=== PATIENT | male | born 1945 | race Caucasian/White ===

== ENCOUNTER 2019-06-16 13:57 | Outpatient (REF) | payer OTHER, SELFPAY ==
[2019-06-16 19:46] LABS: ALT 51 U/L (16-63); AST 32 U/L (15-37); Albumin 3.7 g/dL (3.4-5.0); Alkaline Phosphatase 117 U/L (46-116); Anion Gap 9.6 mmol/L (3-11); BUN 20 mg/dL (7-18); Bilirubin, Total 0.5 mg/dL (0.2-1.0); CO2 26.4 mmol/L (21.0-32.0); CREATININE 1.01 mg/dL (0.70-1.30); Calcium 8.7 mg/dL (8.5-10.1); Chloride 106 mmol/L (98-107); Glucose 92 mg/dL (70-100); Potassium 3.9 mmol/L (3.5-5.1); Sodium 142 mmol/L (136-145); Total Protein 7.9 g/dL (6.4-8.2); Vitamin B12 422 pg/mL (193-986)
== END 2019-06-16 14:17 ==
LOC: NCHCN 13:57
PROVIDERS: PCP Family Medicine; Visit Provider Family Medicine
DX: I10 Essential (primary) hypertension (principal); R31.0 Gross hematuria; F10.99 Alcohol use, unspecified with unspecified alcohol-induced disorder; E53.8 Deficiency of other specified B group vitamins; I48.91 Unspecified atrial fibrillation
CPT/HCPCS: 80053; 82607; 83735

== ENCOUNTER 2019-06-23 01:28 | Outpatient (CLI) | payer OTHER, SELFPAY ==
[2019-06-23] MEDS: Omnipaque 350 MG/ML 100 ML BTL IJ (09:00)
--- NOTE | 2019-06-23 09:00 | DI.CT_ITS ---
EXAM: CT ABDOMEN PELVIS WO/W CLINICAL HISTORY: GROSS HEMATURIA, R31.0, H/O KIDNEY STONES TECHNIQUE: Without oral contrast. Before and after IV contrast and 7 minutes delay. COMPARISON: No exams were available for comparison FINDINGS: There is an 8 millimeter stone near the lower pole of the right kidney. There are 2 adjacent stones in the mid right kidney measuring 4 millimeter each in size. No left renal calculi, ureteral or yokasta dder calculi are seen. Urinary bladder is nearly empty. The prostate is mildly enlarged. A small c yst is noted laterally on the left kidney. No masses are identified. There is symmetric renal paren chymal enhancement and symmetric excretion. No collecting system filling defects are seen. The lung bases are clear. There is mild left atrial and left ventricular enlargement. No pleural or pericardial effusions are seen. There are several small low-density lesions in the liver, too small to characterize, likely cysts. The overall liver attenuation appears mildly fatty. The spleen, ayers creas and adrenals are unremarkable. There is a retro aortic left renal vein. The aorta is normal i n diameter and shows minimal calcification. There is prominent diverticulosis of the descending and sigmoid colon. A distal ileal anastomosis is seen. There are hemangiomas noted in S1. Degenerative changes of the SI joints and lumbar spine. Suture material is seen along the midline of the anterior abdominal wall. IMPRESSION: Right renal calculi. No evidence of hydronephrosis, ureteral or bladder calculi. No evidence of a m ass.
== END 2019-06-23 01:48 ==
PROVIDERS: PCP Family Medicine; Visit Provider Family Medicine
DX: R31.0 Gross hematuria (principal); N20.0 Calculus of kidney
CPT/HCPCS: 74178; J3490

== ENCOUNTER → 2019-08-28 14:34 | Outpatient (BNVA) | payer MEDICARE, OTHER, SELFPAY | PROVIDERS: PCP Family Medicine; Referring Provider Family Medicine; Visit Provider Urology | DX: N20.0 Calculus of kidney (principal); I10 Essential (primary) hypertension; I48.0 Paroxysmal atrial fibrillation; Z79.01 Long term (current) use of anticoagulants | CPT/HCPCS: 99203 ==

== ENCOUNTER 2019-09-02 20:10 | Outpatient (REF) | payer MEDICARE, SELFPAY ==
[2019-09-02 19:32] LABS: HCT 39.5 % (40.0-50.0); HGB 13.3 g/dL (13.5-17.5); Mean Corp. HGB Concentration 33.7 g/dL (32.0-36.0); Mean Corpuscular Hemoglobin 31.6 pg (27.0-33.0); Mean Corpuscular Volume 93.8 fL (80-95); Mean Platelet Volume 10.2 fL (8.0-11.0); Platelet Count 193 x1000/uL (130-400); RBC 4.21 m/cumm (4.50-6.00); RBC Distribution Width 12.4 % (11.8-14.1); White Blood Cell Count 4.88 k/cumm (4.4-10.8)
[2019-09-02 19:37] LABS: C-Reactive Protein 0.19 mg/dL (0.0-0.3)
== END 2019-09-02 20:30 ==
LOC: NCHCN 20:10
PROVIDERS: PCP Family Medicine; Visit Provider Family Medicine
DX: K50.90 Crohn's disease, unspecified, without complications (principal)
CPT/HCPCS: 85027; 86140

== ENCOUNTER 2019-09-07 13:16 | Outpatient (REF) | payer MEDICARE, SELFPAY ==
[2019-09-07 19:00] LABS: HCT 39.9 % (40.0-50.0); HGB 13.2 g/dL (13.5-17.5); Mean Corp. HGB Concentration 33.1 g/dL (32.0-36.0); Mean Corpuscular Hemoglobin 31.4 pg (27.0-33.0); Mean Corpuscular Volume 94.8 fL (80-95); Mean Platelet Volume 10.2 fL (8.0-11.0); Platelet Count 190 x1000/uL (130-400); RBC 4.21 m/cumm (4.50-6.00); RBC Distribution Width 12.4 % (11.8-14.1); White Blood Cell Count 5.21 k/cumm (4.4-10.8)
[2019-09-07 19:12] LABS: Iron 87 ug/dL (65-175); Total Iron Binding Capacity 399 ug/dL (250-450); Transferrin Sat 22 % (20-55)
[2019-09-07 19:27] LABS: Ferritin 194 ng/mL (26-388)
== END 2019-09-07 13:36 ==
LOC: NCHCN 13:16
PROVIDERS: PCP Family Medicine; Visit Provider Family Medicine
DX: D64.9 Anemia, unspecified (principal); K50.90 Crohn's disease, unspecified, without complications
CPT/HCPCS: 85027; 82728; 83540; 83550; 86140

== ENCOUNTER 2019-09-29 01:04 | Outpatient (CLI) | payer MEDICARE, SELFPAY ==
--- NOTE | 2019-09-29 13:45 | DI.US_ITS ---
APPROVED REPORT EXAM: Comprehensive 2D, Doppler, and color-flow Echocardiogram Patient Location: Out-Patient Laboratory Scientist: Enma Jaramillo RDCS (AE) Rhythm: Bradycardia Indications: aortic root dilation .. i77.810. follow up aortic root ascending aorta dilation Conclusion Left Ventricle : The left ventricle is normal size. Left ventricular systolic function is normal. Mi ld left ventricular hypertrophy. There is normal LV segmental wall motion. Diastolic function is ind eterminate. LVEF is estimated to be 55-60%. Right Ventricle : Right ventricle is mildly dilated. The right ventricular systolic function appears normal. Atria : Left atrium is moderately dilated. The right atrium size is top normal. Aortic Valve : Aortic valve is trileaflet. No aortic regurgitation is present. There is no aortic shayne vular stenosis. Mitral Valve : Mitral valve leaflets are mildly thickened. Mild to moderate mitral regurgitation. Great Vessels : The ascending aorta is mildly dilated (4.46 cm) The IVC is dilated in size and collap ses >50% with inspiration. Estimated RVSP is 30-35 mmHg. There is no prior echocardiogram available for comparison. Wall motion Left Ventricle The left ventricle is normal size. Left ventricular systolic function is normal. Mild left ventricula r hypertrophy. There is normal LV segmental wall motion. Diastolic function is indeterminate. LVEF is estimated to be 55-60%. Right Ventricle Right ventricle is mildly dilated. The right ventricular systolic function appears normal. Atria Left atrium is moderately dilated. The right atrium size is top normal. Aortic Valve Aortic valve is trileaflet. There is no aortic valvular stenosis. No aortic regurgitation is present. Mitral Valve Mitral valve leaflets are mildly thickened. No evidence of mitral valve stenosis. Mild to moderate mi tral regurgitation. Tricuspid Valve The tricuspid valve is normal in structure. Mild to moderate tricuspid regurgitation. Pulmonic Valve Pulmonic valve is not well visualized. Moderate pulmonic regurgitation. Great Vessels The aortic root size is normal. The ascending aorta is mildly dilated (4.46 cm) The IVC is dilated in size and collapses >50% with inspiration. Estimated RVSP is 30-35 mmHg. Pericardium There is no pericardial effusion. 2D Dimensions IVSd 1.25 cm M: 0.6-1.2 LV EDV A2C 123.0 mL PWd 1.10 cm M: 0.6 - 1.2 LV EDV A4C 149.7 mL LVDd 5.15 cm M: 4.2 - 5.8 LA Volume Index Biplane 41.9 mL/m2 LVDs 3.70 cm M: 2.5 - 4.0 LA Area A4C 28.04 cm2 Aortic Root 3.70 cm M: 3.1 - 3.7 LA Area A2C 23.68 cm2 RVID Base (AP4) 4.32 cm (M/F) 2.5-4.1 EF AP4 54.6 % RA Area A4C 19.17 cm2 EF AP2 60.6 % LVOT 2.05 cm (M/F) 1.5-2.5 EF BP 58.3 % Ascending Aorta 4.46 cm M: 2.6 - 3.4 IVC 2.45 cm LVEF (Teich) 53.5 % TAPSE 2.61 cm (M/F) <1.7 LVEF (Dang's) 58.32 % M: 52 - 72 LV Volume 100.55 mL M: 62 - 150 LV Volume Index 45.29 mL/m2 M: 34 - 74 FS 27.75 % LV Diastology MV E' medial 0.068 (>0.07 m/s) E/A Ratio 1.5 LV E/e MED 10.55 (<14) PV S/D Ratio 0.72 MV E' lateral 0.076 (>0.1 m/s) A-A Duration 135.37 msec LV E/e LAT 9.45 (<14) TR Peak Velocity 2.62 m/s Pulm Vein s 0.41 m/s Pulm Vein d 0.57 m/s Pulm Vein a 0.26 m/s LA vol/ BSA A2C s A-L 35.4 mL/m2 LA vol/ BSA A4C s A-L 49.3 mL/m2 Aortic Valve LVOT Area 3.45 cm2 AoV Area Vmax 3.16 cm2 LVOT Vmax 0.99 m/s AoV Area/ BSA (Vmax) 1.43 cm2/m2 LVOT Mean Gil. 0.71 m/s EDWARD Mean Gil. 3.13 cm2 LVOT Peak Gr. 3.9 mmHg EDWARD Mean Gil. Index 1.41 cm2/m2 LVOT Mean Gr. 2.2 mmHg LVOT VTI 0.241 m AoV Vmax 1.08 (0.5-1.3 m/s) AoV Mean Gil. 0.78 m/s AoV Peak Grad 4.6 mmHg LVOT SV 83.10 mL AoV Mean Grad 2.6 (<5 mmHg) AoV VTI 0.222 (0.18-0.25 m) AoV Area VTI 3.74 (2.5-4.5 cm2) AoV Area/ BSA (VTI) 1.69 cm/m2 Mitral Valve MV E Max Gil. 0.73 (0.4-1.3 m/s) MVA VTI 5.52 (4.0-6.0 cm2) MV A Velocity 0.50 (0.4-1.3 m/s) Vena Contracta 0.40 (0-0.3 cm) E/A Ratio 1.38 NH End VMAX 139.33 cm/s MV Decel. Time 314 (160-240 msec) RVOT Peak Gr. 3.72 mmHg MV PHT 91 msec RVOT Mean Gr. 2.20 mmHg MVA PHT 2.40 cm2 PV Peak Velocity 1.10 (0.5-1.5 m/s) RVOT Peak Gil. 0.96 m/s RVOT VTI 0.200 m Tricuspid Valve TR P. Gradient 27.3 mmHg TV Regurg Vmax 2.62 m/s RAP Estimate 8.00 mmHg RVSP 35.4 mmHg
== END 2019-09-29 01:24 ==
PROVIDERS: PCP Family Medicine; Visit Provider Family Medicine
DX: I77.810 Thoracic aortic ectasia (principal); I48.0 Paroxysmal atrial fibrillation; I10 Essential (primary) hypertension; I51.7 Cardiomegaly
CPT/HCPCS: 93306

== ENCOUNTER 2019-10-19 06:14 | Day surgery (SDC) | payer MEDICARE, SELFPAY ==
[2019-10-19] VITALS (7 sets, daily range): BP systolic 89–147; BP diastolic 38–83; PULSE 43–60; RESP 12–16; TEMP 36.3–36.7; O2SAT 93–97
--- NOTE | 2019-10-19 06:42 | HPE_ITS ---
Date of service: 10/19/19 Time of Service: 06:42 Assessment and Plan Assessment and plan (1) Renal calculus, right: Status: Acute Assessment and plan: Will move ahead with flexible ureteroscopy with ho lmium laser lithotripsy. We discussed possible complications such as bleeding, infection, ureteral or renal injury or inability to access the stone requiring a stent and a staged procedure. History of Present Illness Narrative: 1) Renal calculus, right: We discussed potential treatment strategies including observation (since the stones are not symptomatic at this point), ESWL, flexible ureteroscopy with laser lithotripsy or percutaneous nephrolithotomy. The patient is not interested in observation due to his frequent travels. The largest stone measures 8 mm and I do not see any anatomic abnormalities that would make percutaneous nephrolithotomy the treatment of choice. We focused our discussion on ESWL versus flexible ureteroscopy. ESWL would be less internally invasive but would require passage of stone fragments over time. Flexible ureteroscopy would give a better chance of a stone free status in a shorter period of time. We talked about the risks and benefits of each of the procedures and the patient is most interested in the flexible ureteroscopy approach. We will need to check with his primary care provider to make sure it is safe to discontinue the Eliquis short-term. By history, his cardiac disease sounds stable, but we will check with our anesthesia providers to see if they are co mfortable with his cardiac status or if they would prefer that he see a membership assistant locally first. HPI Chief complaint: Right kidney stones This is a 73-year-old gentleman who is relatively new to our area. He has been under the care of urologists at [facility] in [facility]. He has a history of BPH with lower urinary tract symptoms. He has been on Avodart weekly for over 10 years now. He tells me that within the past year he has had a PSA that was less than 1 ng/mL. He is also had a normal digital rectal exam. He has had intermittent hematuria which is not associated with any flank pain, dysuria or clots. He was evaluated with cystoscopy in [facility] about a year ago. His bladder was normal. Since moving to our area, he has been evaluated with a CT urogram. N onobstructing kidney stones have been identified and he is referred to see me. The patient did experience renal colic about 6 years ago. He remembers the experience vividly. He tells me that he is travels quite a bit including to some remote areas in foreign countries. He is concerned that he might develop a renal colic when he is in 1 of these remote areas. He has a history of Crohn's disease and has had an extensive bowel resection with reanastomosis. He does not have any history of gout or hyperparathyroid disease. Review of Systems Const: Details: No fevers or chills No dysphasia. History of cataracts which will require surgical treatment at [facility]. No diabetes or thyroid dysfunction No shortness of breath, cough or hemoptysis No chest pain. Hx A Fib (no local membership assistant) No nausea, vomiting, hepatitis, ulcers No seizures, strokes or peripheral neuropathy No anemia. On eliquis No gout Exam Const Other: He is a very pleasant gentleman in no obvious distress. He is cooperative. His vital signs are documented elsewhere His chest wall motion is normal. He is not short of breath at rest. He is awake, alert and oriented. There are 2 nonobstructing stones in the lower pole of the right kidney. I do not see any sign of hydronephrosis or ureteral dilation. The bladder appears normal. There is an enlarged prostate. I do not see any stones on the patient's left side. Vital Signs 08/28/19 14:39 BP 142/88 H Blood Pressure Location Lt brachial Position Sitting Pulse 53 L Pulse Source NIBP Intake Visit Reasons: [employer] - NEPHROLITHIASIS - Ref by [facility] Allergies Allergy/AdvReac Type Severity Reaction Status Date / Time No Known Allergies Allergy Unverified 06/29/19 15:48 [facility] Medical History (Updated 08/28/19 @ 16:10 by Philip Johnson MD) Alcohol use (Acute) Blurred vision (Acute) Chronic insomnia (Acute) Crohn's disease (Chronic) Gross hematuria (Acute) Hypertension (Chronic) Left inguinal hernia (Acute) Nephrolithiasis (Chronic) BRITTANY (obstructive sleep apnea) (Chronic) PAF (paroxysmal atrial fibrillation) (Acute) Renal calculus, right (Acute) Vitamin B 12 deficiency (Acute) [facility] Social History Drug use: Never Substance use type: does not use Do you feel safe at home: Yes Do you feel safe in your relationship?: Yes Meds Home Medications and Allergies Home Medications Medication Instructions Recorded Confirmed Type apixaban 5 mg tablet 5 mg PO BID 06/29/19 10/19/19 History cholestyramine (with sugar) 4 gram 4 gm PO TID gm 06/29/19 10/19/19 History oral powder cyanocobalamin (vitamin B-12) 1,000 mcg PO QMONTH cap 06/29/19 10/19/19 History 1,000 mcg capsule diltiazem HCl 180 mg capsule,24 180 mg PO DAILY 06/29/19 10/19/19 History hr,extended release dutasteride 0.5 mg capsule 0.5 mg PO .weekly cap 06/29/19 10/19/19 History escitalopram oxalate 10 mg tablet 10 mg PO DAILY 06/29/19 10/19/19 History flecainide 50 mg tablet 50 mg PO BID tab 06/29/19 10/19/19 History hydrochlorothiazide 12.5 mg capsule 12.5 mg PO DAILY 06/29/19 10/19/19 History pravastatin 20 mg tablet 20 mg PO QHS 06/29/19 10/19/19 History zolpidem 5 mg tablet 5 mg PO QHS PRN 06/29/19 10/19/19 History Allergies Allergy/AdvReac Type Severity Reaction Status Date / Time No Known Allergies Allergy Unverified 10/16/19 14:35 Exam Resp Effort & Inspection: normal respiratory effort Auscultation: clear to auscultation bilaterally Cardio Rate: regular rate Rhythm: regular rhythm Results Last Vital Signs Temp 36.7 C 10/19/19 06:24 Pulse 60 10/19/19 06:24 Resp 16 10/19/19 06:24 BP 147/83 H 10/19/19 06:24 Pulse Ox 97 10/19/19 06:24
--- NOTE | 2019-10-19 07:00 | DI.RAD_ITS ---
EXAM: XR RETROGRADE IN OR CLINICAL HISTORY: Renal calculus, right. TECHNIQUE: Fluoroscopy was provided for the referring physician for guidance with performing retrogr matthias procedure. COMPARISON: No exams were available for comparison FINDINGS: Please see procedure note for details. FLUORO TIME: 40.9 seconds RADIATION DOSE DELIVERED:
[2019-10-19] MEDS: Lactated Ringers 1,000 ML 80 ML IV (07:04)
[2019-10-19] MEDS: ceFAZolin 2 GM/50 ML BAG IVPB (07:35)
[2019-10-19] MEDS: Lidocaine 2% Jelly 6 ML SYR (08:01)
[2019-10-19] MEDS: Omnipaque 300 MG/ML 50 ML BTL (08:06)
--- NOTE | 2019-10-19 09:30 | W.PM.DSUDISC ---
Discharge Plan Disposition Patient Disposition: HOME Discharge Details Reason For Visit: surgery Attending Provider: Philip Johnson Primary Care Provider: Nathan Diaz Home Meds and New Rx's Prescriptions: No Action hydrochlorothiazide 12.5 mg capsule 12.5 mg PO DAILY RF: 0 Eliquis 5 mg tablet 5 mg PO BID RF: 0 pravastatin [Pravachol] 20 mg tablet 20 mg PO QHS RF: 0 escitalopram oxalate [Lexapro] 10 mg tablet 10 mg PO DAILY RF: 0 flecainide 50 mg tablet 50 mg PO BID RF: 0 dutasteride [Avodart] 0.5 mg capsule 0.5 mg PO .weekly RF: 0 diltiazem HCl [Tiazac] 180 mg capsule,extended release 24 hr 180 mg PO DAILY RF: 0 cyanocobalamin (vitamin B-12) 1,000 mcg capsule 1,000 mcg PO QMONTH RF: 0 cholestyramine (with sugar) [Questran] 4 gram powder 4 gm PO TID RF: 0 zolpidem [Ambien] 5 mg tablet 5 mg PO QHS PRNRF: 0 Discharge Instructions Additional Instructions: my office will arrange repeat cysto, stent removal, ureteroscopy and removal of any residual fragments he may restart blood thinners when urine is grossly clear (but he will need to stop again 48 hours before next procedure) script for tramadol sent to [facility] pt Stand Alone Forms: [facility] C[facility]o Activity:: Activity as Tolerated Shower/Bathe:: 24 hours Diet:: As Tolerated Discharge Orders Discharge Orders: Discharge Order (Routine); Ordered 10/19/19 Ordered By: Philip Johnson DS: Diagnosis Discharge Diagnosis (1) Renal calculus, right: Status: Acute
[2019-10-19] MEDS: Phenazopyridine 200 MG TAB PO (10:39)
--- NOTE | 2019-10-19 11:30 | ROE_ITS ---
DATE OF PROCEDURE: October 19, 2019 PREOPERATIVE DIAGNOSIS: Right kidney stones. POSTOPERATIVE DIAGNOSIS: Same. PROCEDURE: Cystoscopy; right retrograde pyelogram; right flexible ureteroscopy; holmium laser lithot ripsy of right kidney stones; extraction of stone fragments; insert right ureteral stent. SURGEON: Philip Johnson M.D. ANESTHESIA: General. COMPLICATIONS: None. ESTIMATED BLOOD LOSS: Minimal. HISTORY: This is a 73-year-old gentleman who has a history of some right-sided flank discomfort and hematuria. On evaluation he was found to have two stones in the right kidney. The largest stone was in the right lower pole and a smaller stone was in the right upper to mid-pole calyx. He presents n for stone manipulation. OPERATIVE REPORT: The patient was brought to the operating room on 10/19/2019. After successful induc tion of general anesthesia, he was placed in the dorsal lithotomy position. He was given a dose of I V antibiotics. His genitalia was prepped and draped sterilely. A dose of 2% Xylocaine jelly was instilled into the urethra to act as a local anesthetic. The 22 Green[place]ic rigid cystoscope was passed through the urethra into the bladder. The urethra and blad neal were inspected with a 30-degree lens. The pendulous, bulbous and membranous urethras appeared open with no strictures. The prostatic ureth ra showed some lateral lobe enlargement and asymmetry. There was quite a bit more tissue on the jose juan ent's right side compared to the left. The bladder neck was entered and the bladder mucosa was inspected. Both ureteral orifices were ident ified. No blood was seem coming from either side. The remainder of the bladder was moderately trabeculated with no diverticula or cellules seen. I initially attempted to pass a 6 Greenlandic access catheter directly into the right ureteral orifice, bu t I was not successful due to distal J-hooking. I was then able to pass a guidewire into the orifice and advance the access catheter over the wire. A retrograde pyelogram was obtained by injecting Omnipaque through the access catheter under fluorosc opic guidance. This outlined the calyces for me. I then reinserted the Glidewire and removed the access catheter. A dual-lumen catheter was advanced over the wire and a second wire was then positioned. We chose one of the wires as a working wire and the other as a safety wire. A ureteral access sheath was advanced over the working wire. The sheath was positioned such that the tip of the sheath was seen in the upper ureter. The flexible ureteroscope was then introduced through the access sheath up to the upper ureter and re nal pelvis. We were able to identify each of the calyces. Stones were seen in the upper pole calyx as well as the lowermost pole calyx. The largest stone was in the lower pole so we treated that stone first. We used a 272 micron holmium laser fiber to fracture the stone into multiple pieces. We alternated between dusting settings of a power of 200 and a rate of 8 and fracturing settings of a power of 800 and a rate of 8. Multiple st one fragments were then grasped within a Zero Tip stone basket and extracted. Each extracted stone w as sent to pathology for permanent section. During the fracturing, multiple areas of stone debris were generated. This made visibility somewhat difficult. The upper pole stone was brought down into the renal pelvis and we treated the upper pole stone as we ll. Due to visibility issues I am not convinced that all significant stone fragments were removed. For that reason we elected to do a staged procedure. We passed a 7 Greenlandic variable-length stent over the safety wire and positioned the stent with the pro ximal end in the renal pelvis and the distal end within the bladder. The positioning of the stent wa s confirmed both fluoroscopically and cystoscopically. We will make plans to return to the OR in about a week. We will remove the ureteral stent and run th e flexible ureteroscope back up to the renal pelvis. Visibility should be improved so we can remove any residual stone fragments at that time. The patient tolerated this procedure well with no complications. cc: Nathan Diaz M.D.
[2019-10-21 17:05] LABS: Interpretation 100% Uric acid; Source: Right Kidney
== END 2019-10-19 11:30 | disposition home or self-care (01) ==
PROVIDERS: PCP Family Medicine; Visit Provider Urology
PROC: (CPT 52356; principal; 2019-10-19 07:30)
DX: N20.0 Calculus of kidney (principal); N32.89 Other specified disorders of bladder; Z96.0 Presence of urogenital implants
CPT/HCPCS: 52356; NC; 74420; 82365; J0690; J1100; J1885; J2405; J2704; Q9967

== ENCOUNTER 2019-10-26 10:14 | Day surgery (SDC) | payer MEDICARE, SELFPAY ==
[2019-10-26 10:25] VITALS: BP 149/92; PULSE 67; RESP 18; TEMP 36; O2SAT 94
[2019-10-26] MEDS: Lactated Ringers 1,000 ML 80 ML IV (10:42)
--- NOTE | 2019-10-26 11:14 | W.PM.HP.N ---
Date of service: 10/26/19 Time of Service: 11:14 Assessment and Plan Assessment and plan (1) Renal calculus, right: Status: Acute Assessment and plan: We will plan on doing cystoscopy and removal of the right ureteral stent. We will do flexible ureteroscopy and remove any residual stone fragments present His stone analysis shows a composition of 100% uric acid. We should be able to help treat and prevent future stones with alkalinization of the urine. History of Present Illness History of Present Illness Chief Complaint: Right kidney stones Narrative: HPI Chief complaint: Right kidney stones This is a 73-year-old gentleman who is relatively new to our area. He has been under the care of urologists at [facility] in [facility]. He has a history of BPH with lower urinary tract symptoms. He has been on Avodart weekly for over 10 years now. He tells me that within the past year he has had a PSA that was less than 1 ng/mL. He is also had a normal digital rectal exam. He has had intermittent hematuria which is not associated with any flank pain, dysuria or clots. He was evaluated with cystoscopy in [facility] about a year ago. His bladder was normal. Since moving to our area, he has been evaluated with a CT urogram. Nonobstructing kidney stones have been identified and he is referred to see me. The patient did experience renal colic about 6 years ago. He remembers the experience vividly. He tells me that he is travels quite a bit including to some remote areas in foreign countries. He is concerned that he might develop a renal colic when he is in 1 of these remote areas. He has a history of Crohn's disease and has had an extensive bowel resection with reanastomosis. He does not have any history of gout or hyperparathyroid disease. Review of Systems Const: Details: No fevers or chills No dysphasia. History of cataracts which will require surgical treatment at [facility]. No diabetes or thyroid dysfunction No shortness of breath, cough or hemoptysis No chest pain. Hx A Fib (no local bulk driver) No nausea, vomiting, hepatitis, ulcers No seizures, strokes or peripheral neuropathy No anemia. On eliquis No gout Exam Const Other: He is a very pleasant gentleman in no obvious distress. He is cooperative. His vital signs are documented elsewhere His chest wall motion is normal. He is not short of breath at rest. He is awake, alert and oriented. There are 2 nonobstructing stones in the lower pole of the right kidney. I do not see any sign of hydronephrosis or ureteral dilation. The bladder appears normal. There is an enlarged prostate. I do not see any stones on the patient's left side. 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 - Ref by [facility] Allergies Allergy/AdvReac Type Severity Reaction Status Date / Time No Known Allergies Allergy Unverified 06/29/19 15:48 [facility] Medical History (Updated 08/28/19 @ 16:10 by Philip Johnson MD) Alcohol use (Acute) Blurred vision (Acute) Chronic insomnia (Acute) Crohn's disease (Chronic) Gross hematuria (Acute) Hypertension (Chronic) Left inguinal hernia (Acute) Nephrolithiasis (Chronic) BRITTANY (obstructive sleep apnea) (Chronic) PAF (paroxysmal atrial fibrillation) (Acute) Renal calculus, right (Acute) Vitamin B 12 deficiency (Acute) PFS Social History Drug use: Never Substance use type: does not use Do you feel safe at home: Yes Do you feel safe in your relationship?: Yes Meds Home Medications and Allergies Home Medications Medication Instructions Recorded Confirmed Type apixaban 5 mg tablet 5 mg PO BID 06/29/19 10/19/19 History cholestyramine (with sugar) 4 gram 4 gm PO TID gm 06/29/19 10/19/19 History oral powder cyanocobalamin (vitamin B-12) 1,000 mcg PO QMONTH cap 06/29/19 10/19/19 History 1,000 mcg capsule diltiazem HCl 180 mg capsule,24 180 mg PO DAILY 06/29/19 10/19/19 History hr,extended release dutasteride 0.5 mg capsule 0.5 mg PO .weekly cap 06/29/19 10/19/19 History escitalopram oxalate 10 mg tablet 10 mg PO DAILY 06/29/19 10/19/19 History flecainide 50 mg tablet 50 mg PO BID tab 06/29/19 10/19/19 History hydrochlorothiazide 12.5 mg capsule 12.5 mg PO DAILY 06/29/19 10/19/19 History pravastatin 20 mg tablet 20 mg PO QHS 06/29/19 10/19/19 History zolpidem 5 mg tablet 5 mg PO QHS PRN 06/29/19 10/19/19 History Allergies Allergy/AdvReac Type Severity Reaction Status Date / Time No Known Allergies Allergy Unverified 10/16/19 14:35 Exam Resp Effort & Inspection: normal respiratory effort Auscultation: clear to auscultation bilaterally Cardio Rate: regular rate Rhythm: regular rhythm PFSH Social History Smoking/Tobacco Use Status: Former Tobacco Use Quit Date: 08/19/1959 Drug use: Never Substance use type: does not use Do you feel safe at home: Yes Do you feel safe in your relationship?: Yes Meds Home Medications and Allergies Home Medications Medication Instructions Recorded Confirmed Type apixaban 5 mg tablet 5 mg PO BID 06/29/19 10/26/19 History cholestyramine (with sugar) 4 gram 4 gm PO TID gm 06/29/19 10/26/19 History oral powder cyanocobalamin (vitamin B-12) 1,000 mcg PO QMONTH cap 06/29/19 10/26/19 History 1,000 mcg capsule diltiazem HCl 180 mg capsule,24 180 mg PO DAILY 06/29/19 10/26/19 History hr,extended release dutasteride 0.5 mg capsule 0.5 mg PO .weekly cap 06/29/19 10/26/19 History escitalopram oxalate 10 mg tablet 10 mg PO DAILY 06/29/19 10/26/19 History flecainide 50 mg tablet 50 mg PO BID tab 06/29/19 10/26/19 History hydrochlorothiazide 12.5 mg capsule 12.5 mg PO DAILY 06/29/19 10/26/19 History pravastatin 20 mg tablet 20 mg PO QHS 06/29/19 10/26/19 History zolpidem 5 mg tablet 5 mg PO QHS PRN 06/29/19 10/26/19 History tramadol 50 mg tablet 50 mg PO Q6H PRN #20 tab MDD 4 tab 10/19/19 10/26/19 Rx oxybutynin chloride 5 mg tablet 5 mg PO Q8H PRN #20 tab 10/20/19 10/26/19 Rx Allergies Allergy/AdvReac Type Severity Reaction Status Date / Time No Known Allergies Allergy Unverified 10/26/19 10:28 Results Last Vital Signs Temp 36.0 C L 10/26/19 10:25 Pulse 67 10/26/19 10:25 Resp 18 10/26/19 10:25 BP 149/92 H 10/26/19 10:25 Pulse Ox 94 L 10/26/19 10:25
[2019-10-26] MEDS: ceFAZolin 2 GM/50 ML BAG IVPB (11:50)
[2019-10-26] MEDS: Omnipaque 300 MG/ML 50 ML BTL (12:25)
[2019-10-26] MEDS: Lidocaine 2% Jelly 6 ML SYR (12:25)
--- NOTE | 2019-10-26 12:25 | DI.RAD_ITS ---
EXAM: XR RETROGRADE IN OR INDICATION: right renal calculus. COMPARISON: No exams were available for comparison TECHNIQUE: 2D digital imaging was performed. FINDINGS: Fluoroscopy was utilized by Dr. Johnson during the retrograde evaluation of the right renal collecting system. Please refer to the procedure report for complete details. Fluoro Time: 13.9 seconds DATA REPOSITORY: RADIATION DOSE DELIVERED:
--- NOTE | 2019-10-26 12:27 | W.PM.DSUDISC ---
Discharge Plan Disposition Patient Disposition: HOME Condition: Stable Discharge Details Attending Provider: Philip Johsnon Primary Care Provider: Nathan Diaz Home Meds and New Rx's Prescriptions: No Action tramadol 50 mg tablet 50 mg PO Q6H MDD 4 tab PRN (Reason: pain) Qty: 20 RF: 0 oxybutynin chloride 5 mg tablet 5 mg PO Q8H PRN (Reason: bladder spasms) Qty: 20 RF: 0 hydrochlorothiazide 12.5 mg capsule 12.5 mg PO DAILY RF: 0 Eliquis 5 mg tablet 5 mg PO BID RF: 0 pravastatin [Pravachol] 20 mg tablet 20 mg PO QHS RF: 0 escitalopram oxalate [Lexapro] 10 mg tablet 10 mg PO DAILY RF: 0 flecainide 50 mg tablet 50 mg PO BID RF: 0 dutasteride [Avodart] 0.5 mg capsule 0.5 mg PO .weekly RF: 0 diltiazem HCl [Tiazac] 180 mg capsule,extended release 24 hr 180 mg PO DAILY RF: 0 cyanocobalamin (vitamin B-12) 1,000 mcg capsule 1,000 mcg PO QMONTH RF: 0 cholestyramine (with sugar) [Questran] 4 gram powder 4 gm PO TID RF: 0 zolpidem [Ambien] 5 mg tablet 5 mg PO QHS PRNRF: 0 Discharge Instructions Additional Instructions: f/u appt @ 6 weeks with renal ultrasound may restart Eliquis when urine becomes clear increase citric acid intake - I will check urine pH when pt comes in for followup appt Activity:: Activity as Tolerated Shower/Bathe:: 24 hours Diet:: As Tolerated Discharge Orders Discharge Orders: Discharge Order (Routine); Ordered 10/26/19 Ordered By: Philip Johnson DS: Diagnosis Discharge Diagnosis (1) Renal calculus, right: Status: Acute
[2019-10-26] MEDS: Oxybutynin 5 MG TAB PO (12:57)
[2019-10-26 13:00] VITALS: BP 167/90; PULSE 55; RESP 18; TEMP 36.6; O2SAT 99
--- NOTE | 2019-10-26 15:28 | ROE_ITS ---
DATE OF PROCEDURE: October 26, 2019 PREOPERATIVE DIAGNOSIS: Right renal stones. POSTOPERATIVE DIAGNOSIS: Same. PROCEDURE: Cystoscopy; remove right ureteral stent; right retrograde pyelogram; right flexible urete roscopy. SURGEON: Philip Johnson M.D. ANESTHESIA: General. COMPLICATIONS: None. ESTIMATED BLOOD LOSS: Minimal. FINDINGS: 1. No extravasation of contrast from collecting system. 2. No significant residual stone burden. HISTORY: This is a 73-year-old gentleman who has a history of kidney stones. Last week he underwent flexible ureteroscopy and holmium laser lithotripsy of multiple stones. Stone fragments were evacua stephane and the stone chemistry is 100% uric acid. We left a ureteral stent in place after the surgery. I was not convinced that all stone fragments fernandes d been successfully addressed at the first surgery, so he presents now for stent removal and repeat u reteroscopy to remove any residual stone fragments. OPERATIVE REPORT: The patient was brought to the operating room on 10/26/2019. After successful induc tion of general anesthesia, he was placed in the dorsal lithotomy position. His genitalia was preppe d and draped. A 22 Swedish rigid cystoscope was passed through the urethra into the bladder. The urethra and bladde r were inspected with a 30-degree lens. The pendulous, bulbous and membranous urethras all appeared normal with no strictures. The prostatic urethra showed lateral lobe enlargement. The bladder neck was entered and the bladder mucosa was inspected. A ureteral stent was seen protrud ing from the right ureteral orifice. The stent was grasped with alligator forceps and brought out to the level of the urethral meatus. A Glidewire was then advanced through the lumen of the stent and the stent was removed, leaving the w benji in place. We then passed a dual-lumen catheter over the wire. We did a retrograde pyelogram by injecting Omnipaque through the second lumen on the catheter under fluoroscopic guidance. This outli hailey the ureter and collecting system. No filling defects were seen. No extravasation of contrast wa s seen in the ureter or collecting system. We then passed a second wire through the lumen of the dual-lumen catheter. We chose one of the wires as a working wire and then the other as a safety wire. We passed a ureteral access sheath over the working wire, then passed the flexible ureteroscope throu gh the access sheath. In the kidney we identified numerous small stone particles, which were small enough that they should pass on their own. There were a few blood clots consistent with his previous surgery and stent place ment. We inspected each calyx as outlined on the retrograde pyelogram. Once we ensured that there were no significant stone fragments remaining, we removed the scope and ac cess sheath.
== END 2019-10-26 13:30 | disposition home or self-care (01) ==
PROVIDERS: PCP Family Medicine; Visit Provider Urology
PROC: (CPT 52351; principal; 2019-10-26 11:30)
DX: N20.0 Calculus of kidney (principal)
CPT/HCPCS: 52351; NC; 74420; J0690; J1100; J2405; Q9967

== ENCOUNTER 2019-11-03 16:55 | Outpatient (CLI) | payer MEDICARE, SELFPAY | END 2019-11-03 17:15 | PROVIDERS: PCP Family Medicine; Visit Provider Urology | DX: N20.0 Calculus of kidney (principal) | CPT/HCPCS: 87086 ==

== ENCOUNTER → 2019-11-16 13:10 | Outpatient (BNVA) | payer MEDICARE, SELFPAY | PROVIDERS: PCP Family Medicine; Referring Provider Family Medicine; Visit Provider Internal Medicine Cardiovascular Disease | DX: I10 Essential (primary) hypertension (principal); I48.0 Paroxysmal atrial fibrillation; N20.0 Calculus of kidney; I71.2 Thoracic aortic aneurysm, without rupture | CPT/HCPCS: 99202; 99442 ==

== ENCOUNTER → 2020-05-16 10:56 | Outpatient (BNVA) | payer MEDICARE, SELFPAY | PROVIDERS: PCP Family Medicine; Referring Provider Family Medicine; Visit Provider Internal Medicine Cardiovascular Disease | DX: I48.0 Paroxysmal atrial fibrillation (principal); I71.2 Thoracic aortic aneurysm, without rupture; I10 Essential (primary) hypertension | CPT/HCPCS: 99214 ==

== ENCOUNTER 2020-05-24 15:23 | Outpatient (REF) | payer MEDICARE, SELFPAY ==
[2020-05-24 18:30] LABS: HCT 38.4 % (40.0-50.0); HGB 13.1 g/dL (13.5-17.5); MCH 32.3 pg (27.0-33.0); MCHC 34.1 % (32.0-36.0); MCV 94.8 fL (80-95); Platelet Count 147 10^3/uL (130-400); RBC 4.05 10^6/uL (4.36-5.78); RDW 12.3 % (11.8-14.1); RDW-SD 42.8 fL; WBC 5.84 10^3/uL (4.4-10.8)
[2020-05-24 19:16] LABS: ALT 43 U/L (16-63); AST 33 U/L (15-37); Albumin 3.9 g/dL (3.4-5.0); Alkaline Phosphatase 113 U/L (46-116); Anion Gap 7.6 mmol/L (3-11); BUN 14 mg/dL (7-18); Bilirubin, Total 0.5 mg/dL (0.2-1.0); CO2 27.4 mmol/L (21.0-32.0); CREATININE 1.08 mg/dL (0.70-1.30); Calcium 8.9 mg/dL (8.5-10.1); Chloride 104 mmol/L (98-107); Glucose 112 mg/dL (74-106); Sodium 139 mmol/L (136-145); Total Protein 7.9 g/dL (6.4-8.2); Vitamin B12 374 pg/mL (193-986)
[2020-05-26 10:22] LABS: Hepatitis C Ab w Rflx HCV PCR Negative (Negative)
== END 2020-05-24 15:43 ==
LOC: NCHCN 15:23
PROVIDERS: PCP Family Medicine; Visit Provider Family Medicine
DX: E53.8 Deficiency of other specified B group vitamins (principal); D64.9 Anemia, unspecified; I10 Essential (primary) hypertension; F10.99 Alcohol use, unspecified with unspecified alcohol-induced disorder; Z11.59 Encounter for screening for other viral diseases
CPT/HCPCS: 80053; 85027; 86803; 82607

== ENCOUNTER → 2020-08-25 13:57 | Outpatient (BNVA) | payer MEDICARE, SELFPAY | PROVIDERS: PCP Family Medicine; Referring Provider Family Medicine; Visit Provider Nurse Practitioner Gerontology | DX: N20.0 Calculus of kidney (principal); R31.0 Gross hematuria | CPT/HCPCS: 99442 ==

== ENCOUNTER 2020-08-29 00:59 | Outpatient (CLI) | payer MEDICARE, SELFPAY ==
--- NOTE | 2020-08-29 08:15 | DI.US_ITS ---
EXAM: US RENAL CLINICAL HISTORY: s/p ureteroscopy - flank pain - hematuria,n20.0,r31.0,calculus of kidney TECHNIQUE: Ultrasound of both kidneys performed using standard protocol. COMPARISON: CT CT ABDOMEN PELVIS WO/W from 06/23/2019 US US ECHOCARDIOGRAM from 09/29/2019 FINDINGS: RIGHT KIDNEY: Measures 13.3 cm in length. No cysts evident. Normal cortical thickness and corticomedullary differen tiation .No solid masses However, there is moderate hydronephrosis. There appears to be a calculus at ureteropelvic junction, possibly calculus which was seen right kidney on the CT scan of 06/23/2019, located in lower pole re gion at that time.There are few tiny hyperechoic foci remaining within the right kidney. LEFT KIDNEY: Measures 12.4 cm in length. There is a single 6 millimeter exophytic cyst off the lateral cortex. N ormal cortical thickness and corticomedullary differentiaion. No solids masses. There are few tiny e chogenic foci which may be nonobstructive calculi. Largest of these measures approximately 4 millime ters URINARY BLADDER: Prevoid volume is 31 cc Postvoid volume is 7 cc Not enough urine in the bladder to assess for bladder masses. Ureterovesical jets: Neither identified. IMPRESSION: 1. There is new lateral moderate right-sided hydronephrosis. Appears to be due to a possible calcul us at the ureteropelvic junction and this may be the calculus which previously present in the inferio r pole the right kidney on the CT scan of June 2019 2. There are few hyperechoic foci within both kidneys which may be month nonobstructive calculi. Ho wever, these were not evident on the prior CT scan of the lumbar 2017. Urinary bladder study less than adequate as described above. DATA REPOSITORY:
== END 2020-08-29 01:19 ==
PROVIDERS: PCP Family Medicine; Visit Provider Nurse Practitioner Gerontology
DX: N13.30 Unspecified hydronephrosis (principal); R31.0 Gross hematuria; N28.1 Cyst of kidney, acquired
CPT/HCPCS: 76770

== ENCOUNTER → 2020-08-31 09:27 | Outpatient (BNVA) | payer MEDICARE, SELFPAY | PROVIDERS: PCP Family Medicine; Referring Provider Family Medicine; Visit Provider Nurse Practitioner Gerontology | DX: N20.0 Calculus of kidney (principal) | CPT/HCPCS: 99212 ==

== ENCOUNTER 2020-09-05 02:03 | Outpatient (CLI) | payer MEDICARE, SELFPAY ==
[2020-09-06 12:41] LABS: COVID-19 RT-PCR UVMMC Result Negative (Negative)
== END 2020-09-05 02:23 ==
PROVIDERS: Urology; PCP Family Medicine; Visit Provider Nurse Practitioner Gerontology
DX: Z11.52 Encounter for screening for COVID-19 (principal); K40.90 Unilateral inguinal hernia, without obstruction or gangrene, not specified as recurrent; Z90.49 Acquired absence of other specified parts of digestive tract; Z72.89 Other problems related to lifestyle; K50.90 Crohn's disease, unspecified, without complications; I48.0 Paroxysmal atrial fibrillation; G47.33 Obstructive sleep apnea (adult) (pediatric); E53.8 Deficiency of other specified B group vitamins; N20.0 Calculus of kidney
CPT/HCPCS: 99202; 99213; U0003

== ENCOUNTER 2020-09-08 08:15 | Day surgery (SDC) | payer MEDICARE, SELFPAY ==
[2020-09-08 08:20] VITALS: BP 151/98; PULSE 57; RESP 18; TEMP 36.6; O2SAT 92
[2020-09-08] MEDS: Lactated Ringers 1,000 ML 80 ML IV (08:42)
--- NOTE | 2020-09-08 12:07 | HPE_ITS ---
Date of service: 09/08/20 Time of Service: 12:07 Assessment and Plan Assessment and plan (1) Hydronephrosis, right: Status: Acute Assessment and plan: We will start with cystoscopy, right retrograde franklin logram and ureteroscopy with holmium laser lithotripsy of any visible ureteral or renal stones. In the postoperative time, we will work on alkalinizing his urine. History of Present Illness History of Present Illness Chief Complaint: Right ureteral stone Narrative: This is a 74-year-old gentleman who has a history of uric acid stones. He came to our office recently with complaints of gross hematuria and mild right-sided flank pain. Patient reports that he has had intermittent hematuria without dysuria or a change in his LUTS. He did undergo a stone manipulation procedure in October 2019 and never had a follow-up renal ultrasound afterwards. Patient notes that the hematuria did subside momentarily while he stopped his Eliquis. Even with off of the Eliquis he has had hematuria and has test strips to see that he still has microscopic hematuria. He had undergone right flexible ureteroscopy with holmium laser lithotripsy in October 2019. His stones at that time were 100% uric acid. He tells me that when he checked his urine pH at home, it was down to 5.0. With dietary measures, he has been able to raise the urine pH up to 7. Review of Systems Narrative: No fevers or chills No vision change or dysphasia No diabetes or thyroid dysfunction No shortness of breath, cough or hemoptysis No chest pain or palpitations. Hx A Fib No nausea, vomiting, hepatitis, ulcers, jaundice No seizures, strokes or peripheral neuropathy No bleeding disorders or anemia No gout PFSH Medical History (Updated 09/08/20 @ 12:08 by Philip Johnson MD) Actinic keratitis Alcohol use Anemia Aortic root dilation Blurred vision Cataract Chronic insomnia Crohn's disease Erectile dysfunction Gross hematuria History of colon polyps Hypertension Inguinal hernia Insomnia Left inguinal hernia Nephrolithiasis BRITTANY (obstructive sleep apnea) PAF (paroxysmal atrial fibrillation) Following up with Dr. Bauer in 3 weeks per pt. 10/16/19 Renal calculus, right Sleep apnea Subcutaneous mass of left forearm Vitamin B 12 deficiency Surgical History History of colectomy Hx of cystoscopy Status post laser lithotripsy of ureteral calculus Social History Smoking/Tobacco Use Status: Former Tobacco Use Quit Date: 08/19/1959 Tobacco: How many years used: 5 Smoking risk assessment performed?: Yes Alcohol Intake: current Alcohol Intake frequency: 3 or more drinks per day Alcohol type: wine Drug use: Never Substance use type: does not use What type of physical activity do you participate in: swimming Duration: 15-30 minutes/day Frequency: 5-6 times per week Do you feel safe at home: Yes Do you feel safe in your relationship?: Yes Meds Home Medications and Allergies Home Medications Medication Instructions Recorded Confirmed Type apixaban 5 mg tablet 5 mg PO BID 06/29/19 09/08/20 History cholestyramine (with sugar) 4 gram 4 gm PO TID gm 06/29/19 09/08/20 History oral powder cyanocobalamin (vitamin B-12) 1,000 mcg PO QMONTH cap 06/29/19 09/08/20 History 1,000 mcg capsule diltiazem HCl 180 mg capsule,24 180 mg PO DAILY 06/29/19 09/08/20 History hr,extended release dutasteride 0.5 mg capsule 0.5 mg PO .weekly cap 06/29/19 09/08/20 History escitalopram oxalate 10 mg tablet 10 mg PO DAILY 06/29/19 09/08/20 History flecainide 50 mg tablet 50 mg PO BID tab 06/29/19 09/08/20 History hydrochlorothiazide 12.5 mg capsule 12.5 mg PO DAILY 06/29/19 09/08/20 History pravastatin 20 mg tablet 20 mg PO QHS 06/29/19 09/08/20 History zolpidem 5 mg tablet 5 mg PO QHS PRN 06/29/19 09/08/20 History pH test #100 each 11/13/19 08/31/20 Rx sildenafil 50 mg tablet 50 mg PO PRN PRN tab 07/27/20 09/07/20 History bisacodyl 5 mg tablet,delayed 5 mg PO ONCE #4 tab 09/07/20 Rx release polyethylene glycol 3350 17 238 g PO ONCE #238 g 09/07/20 Rx gram/dose oral powder Allergies Allergy/AdvReac Type Severity Reaction Status Date / Time No Known Allergies Allergy Unverified 09/08/20 08:16 Exam Const General: cooperative and comfortable Neck Neck: supple Resp Effort & Inspection: normal respiratory effort Auscultation: clear to auscultation bilaterally Cardio Rate: regular rate Rhythm: regular rhythm GI Palpation: soft and no masses Neuro General: patient alert, patient awake and patient oriented x3 Results Last Vital Signs Temp 36.6 C 09/08/20 08:20 Pulse 57 L 09/08/20 08:20 Resp 18 09/08/20 08:20 BP 151/98 H 09/08/20 08:20 Pulse Ox 92 09/08/20 08:20 COVID-19 Screening Have you, or household traveled for leisure in last 14 days?: No Had IN PERSON contact w/suspected or confirmed C-19 person: No
[2020-09-08] MEDS: ceFAZolin 1 GM/50 ML BAG IVPB (12:41)
[2020-09-08] MEDS: Lidocaine 2% Jelly 6 ML SYR (12:55)
[2020-09-08] MEDS: Omnipaque 300 MG/ML 50 ML BTL (12:59)
--- NOTE | 2020-09-08 13:20 | DI.RAD_ITS ---
EXAM: XR RETROGRADE IN OR CLINICAL HISTORY: RIGHT URETERAL STONE, HYDRONEPHROSIS TECHNIQUE: 2D and realtime digital imaging was performed. CONTRAST MATERIAL: Refer to procedure report. COMPARISON: No exams were available for comparison FINDINGS: Fluoroscopy was provided for Dr. Johnson during the performance of a retrograde evaluation of the burke l collecting system. Please refer to the procedure report for complete details. Fluoro time: 29.4 seconds IMPRESSION: RADIATION DOSE DELIVERED:
--- NOTE | 2020-09-08 13:29 | W.PM.DSUDISC ---
Discharge Plan Disposition Patient Disposition: HOME Condition: Stable Discharge Details Reason For Visit: right hydronephrosis Attending Provider: Philip Johnson Primary Care Provider: Nathan Diaz [facility] Meds and New Rx's Prescriptions: New tramadol 50 mg tablet 50 mg PO Q8H PRN (Reason: pain) Qty: 25 RF: 0 oxybutynin chloride 5 mg tablet 5 mg PO BID-TID PRN (Reason: bladder spasms) Qty: 20 RF: 0 potassium citrate 10 mEq (1,080 mg) tablet extended release 1,080 mg PO BID Qty: 60 RF: 2 No Action (DME) pH test Strip See Rx Instructions .ROUTE .MEDSUPPLY Qty: 100 RF: 12 hydrochlorothiazide 12.5 mg capsule 12.5 mg PO DAILY RF: 0 Eliquis 5 mg tablet 5 mg PO BID RF: 0 pravastatin [Pravachol] 20 mg tablet 20 mg PO QHS RF: 0 escitalopram oxalate [Lexapro] 10 mg tablet 10 mg PO DAILY RF: 0 flecainide 50 mg tablet 50 mg PO BID RF: 0 dutasteride [Avodart] 0.5 mg capsule 0.5 mg PO .weekly RF: 0 diltiazem HCl [Tiazac] 180 mg capsule,extended release 24 hr 180 mg PO DAILY RF: 0 cyanocobalamin (vitamin B-12) 1,000 mcg capsule 1,000 mcg PO QMONTH RF: 0 cholestyramine (with sugar) [Questran] 4 gram powder 4 gm PO TID RF: 0 zolpidem [Ambien] 5 mg tablet 5 mg PO QHS PRNRF: 0 sildenafil [Viagra] 50 mg tablet 50 mg PO PRN PRNRF: 0 polyethylene glycol 3350 17 gram/dose powder 238 g PO ONCE Qty: 238 RF: 0 bisacodyl [Dulcolax (bisacodyl)] 5 mg tablet,delayed release (DR/EC) 5 mg PO ONCE Qty: 4 RF: 0 Discharge Instructions Additional Instructions: no need to strain urine restart anticoagulants tomorrow 09/09/2020 my office will contact pt for cystoscopy, stent removal, completion ureteroscopy and possible holmium laser lithotripsy Activity:: Activity as Tolerated Shower/Bathe:: 24 hours Diet:: As Tolerated Discharge Orders Discharge Orders: Discharge Order (Routine); Ordered 09/08/20 Ordered By: Philip Johnson DS: Diagnosis Discharge Diagnosis (1) Hydronephrosis, right: Status: Acute
--- NOTE | 2020-09-08 13:47 | ROE_ITS ---
Date of service: 09/08/20 Time of Service: 13:47 Operative Note Operative Note DATE OF PROCEDURE: 09/08/20 PRE-OP DIAGNOSIS: Right hydronephrosis POST-OP DIAGNOSIS: same PROCEDURE: Cystoscopy, right retrograde pyelogram, right Passport balloon dilation of ureteropelvic junction stricture, right flexible ureteroscopy, insert right ureteral stent. ANESTHESIA: other (General without intubation) ESTIMATED BLOOD LOSS: 7 PATHOLOGY: none sent Patient was transported to: same day Patient's condition: stable Implants: 7 NICARAGUAN BY 22 TO 30 CM URETERAL STENT Indications: This is a 74-year-old gentleman who has a history of uric acid stones. He had undergone right ureteroscopy with holmium laser lithotripsy of previous stones. The patient did not have his scheduled follow-up renal ultrasound. He presented back to see us recently with right flank pain and hematuria. Renal ultrasound done at that time showed right hydronephrosis and multiple stones. He presents now for cystoscopy, retrograde pyelogram, ureteroscopy and stone manipulation. Findings: Narrowing at right ureteropelvic junction. Unable to navigate the ur eteroscope through this area. Procedure Description: The patient was brought to the operating room on 09/08/2020. He was given a dose of preoperative IV antibiotics. After successful induction of general anesthesia, he was placed in the dorsal lithotomy position. His genitalia was prepped and draped sterilely. 2% Xylocaine jelly was instilled into the urethra to act as a local anesthetic. A 22 Ivorian rigid cystoscope was passed through the urethra into the bladder. The urethra and bladder were inspected with a 30 degree lens. The pendulous, bulbous and membranous urethra was all appeared normal with no strictures. The prostatic urethra showed no mucosal-based abnormalities. The bladder neck was entered and the bladder mucosa was inspected. The right ureteral orifice was identified. I was able to cannulate the orifice with a 6 Ivorian access catheter. Retrograde film was obtained by injecting Omnipaque through the access catheter under fluoroscopic guidance. The ureter appeared normal up to the level of the ureteropelvic junction. In this region, a narrowing was identified with what appeared to be a rather high insertion into the renal pelvis. There appeared to be a filling defect above this narrowing. I was able to pass a guidewire through the area until the tip of the wire could be seen in the renal pelvis. The cystoscope was withdrawn as was the access catheter. A dual-lumen catheter was advanced over the wire. A second wire was positioned we chose one of the wires as a working wire and the other as a safety wire. The ureteral access sheath was then advanced over the working wire leaving the safety wire in place. The flexible ureteroscope was passed through the access sheath up the remainder of the ureter until the ureteropelvic junction was identified. A narrowing was seen and I was unable to pass the scope through this area directly. I then used a passport balloon and positioned the balloon across the narrowed area. We inflated the balloon for 5 minutes then deflated the balloon and removed it. Even after the balloon dilation, I was unable to pass the ureteroscope through this area. We then chose to place a ureteral stent to allow the area to dilate. We will make a plan to return to the operating room for completion ureteroscopy. I chose a 7 Ivorian variable length stent and advanced it over the working wire. We positioned the stent such that the proximal end was curled in the renal pelvis and the distal and was curled in the bladder. The patient tolerated this procedure well with no complications. If I am still unable to pass the scope through the narrowed ureteropelvic junction area, I would likely refer this gentleman to a tertiary care center for possible dismember pyeloplasty using a da Toro robot. In the meantime, we will alkalinize his urine to dissolve his current uric acid stones and prevent additional uric acid stones. He tolerated this procedure well with no complications. He was returned to day surgery in stable condition.
[2020-09-08 14:04] VITALS: BP 161/88; PULSE 55; RESP 16; TEMP 36.4; O2SAT 97
[2020-09-08] MEDS: Phenazopyridine 200 MG TAB PO (14:26)
[2020-09-08 14:50] VITALS: BP 169/98; PULSE 55; RESP 16; TEMP 36.5; O2SAT 96
== END 2020-09-08 15:10 | disposition home or self-care (01) ==
PROVIDERS: PCP Family Medicine; Visit Provider Urology
PROC: (CPT 52345; principal; 2020-09-08 10:45)
DX: N13.30 Unspecified hydronephrosis (principal); Q62.11 Congenital occlusion of ureteropelvic junction
CPT/HCPCS: 52345; 52332; NC; 74420; J0690; J1100; J2001; J2405; J2704; Q9967

== ENCOUNTER 2020-09-29 02:25 | Outpatient (CLI) | payer MEDICARE, SELFPAY ==
[2020-10-01 09:03] LABS: COVID-19 RT-PCR UVMMC Result Negative (Negative)
== END 2020-09-29 02:26 | disposition home or self-care (01) ==
LOC: LBO 02:25
PROVIDERS: PCP Family Medicine; Visit Provider Urology
DX: Z20.822 Contact with and (suspected) exposure to COVID-19 (principal); Z01.818 Encounter for other preprocedural examination
CPT/HCPCS: U0003; U0005

== ENCOUNTER 2020-10-03 06:19 | Day surgery (SDC) | payer MEDICARE, SELFPAY ==
[2020-10-03 06:51] VITALS: BP 162/99; PULSE 64; RESP 18; TEMP 36.5; O2SAT 96
--- NOTE | 2020-10-03 07:04 | HPE_ITS ---
Date of service: 10/03/20 Time of Service: 07:04 Assessment and Plan Assessment and plan (1) Hydronephrosis, right: Status: Acute Assessment and plan: We will remove the ureteral stent and run the flexi ble ureteroscope up to the kidney. If we are unable to pass through the strictured area, we will obtain a nuclear renogram and make a referral to a tertiary center for possible da Toro robot assisted pyeloplasty. If we are able to run the scope up to the kidney, we will still obtain a nuclear renogram before arranging a scheduled follow-up. History of Present Illness History of Present Illness Chief Complaint: Right UPJ obstruction Narrative: This is a 74-year-old gentleman who has a history of uric acid stones. He had undergone ureteroscopy with holmium laser lithotripsy of a right-sided stone previously. On follow-up, he had right hydronephrosis and a stricture at the right ureteropelvic junction. We performed a balloon dilation and placed a stent. He presents now for stent removal and ureteroscopy to assess the strictured area. Review of Systems Narrative: No fevers or chills No vision change or dysphasia No diabetes or thyroid No shortness of breath, cough or hemoptysis No chest pain. Hx A Fib Hx Crohn's disease. No hepatitis, ulcers, jaundice No seizures, strokes or peripheral neuropathy No bleeding disorders or anemia No gout PFSH Medical History Actinic keratitis Alcohol use Anemia Aortic root dilation Blurred vision Cataract Chronic insomnia Crohn's disease Erectile dysfunction Gross hematuria History of colon polyps Hypertension Inguinal hernia Insomnia Left inguinal hernia Nephrolithiasis BRITTANY (obstructive sleep apnea) PAF (paroxysmal atrial fibrillation) Following up with Dr. Bauer in 3 weeks per pt. 10/16/19 Renal calculus, right Sleep apnea Subcutaneous mass of left forearm Vitamin B 12 deficiency Surgical History History of colectomy Hx of cystoscopy Status post laser lithotripsy of ureteral calculus Social History Smoking/Tobacco Use Status: Former Tobacco Use Quit Date: 08/19/1959 Tobacco: How many years used: 5 Smoking risk assessment performed?: Yes Alcohol Intake: current Alcohol Intake frequency: 3 or more drinks per day Alcohol type: wine Drug use: Never Substance use type: does not use Details: alcohol: t-1, two glasses of wine What type of physical activity do you participate in: swimming Duration: 15-30 minutes/day Frequency: 5-6 times per week Do you feel safe at home: Yes Do you feel safe in your relationship?: Yes Meds Home Medications and Allergies Home Medications Medication Instructions Recorded Confirmed Type apixaban 5 mg tablet 5 mg PO BID 06/29/19 10/03/20 History cholestyramine (with sugar) 4 gram 4 gm PO TID gm 06/29/19 10/03/20 History oral powder cyanocobalamin (vitamin B-12) 1,000 mcg PO QMONTH cap 06/29/19 10/03/20 History 1,000 mcg capsule diltiazem HCl 180 mg capsule,24 180 mg PO DAILY 06/29/19 10/03/20 History hr,extended release dutasteride 0.5 mg capsule 0.5 mg PO .weekly cap 06/29/19 10/03/20 History escitalopram oxalate 10 mg tablet 10 mg PO DAILY 06/29/19 10/03/20 History flecainide 50 mg tablet 50 mg PO BID tab 06/29/19 10/03/20 History hydrochlorothiazide 12.5 mg capsule 12.5 mg PO DAILY 06/29/19 10/03/20 History pravastatin 20 mg tablet 20 mg PO QHS 06/29/19 10/03/20 History zolpidem 5 mg tablet 5 mg PO QHS PRN 06/29/19 10/03/20 History pH test #100 each 11/13/19 10/03/20 Rx sildenafil 50 mg tablet 50 mg PO PRN PRN tab 07/27/20 10/03/20 History bisacodyl 5 mg tablet,delayed 5 mg PO ONCE #4 tab 09/07/20 10/03/20 Rx release polyethylene glycol 3350 17 238 g PO ONCE #238 g 09/07/20 10/03/20 Rx gram/dose oral powder oxybutynin chloride 5 mg PO BID-TID PRN #20 tab 09/08/20 10/03/20 Rx potassium citrate 1,080 mg PO BID #60 tab 09/08/20 10/03/20 Rx tramadol 50 mg PO Q8H PRN #25 tab 09/08/20 10/03/20 Rx eszopiclone 1 mg tablet 1 mg PO QHS #10 tab 09/09/20 10/03/20 Rx Allergies Allergy/AdvReac Type Severity Reaction Status Date / Time No Known Allergies Allergy Unverified 10/03/20 06:29 Exam Const General: cooperative and comfortable Neck Neck: supple Resp Effort & Inspection: normal respiratory effort Auscultation: clear to auscultation bilaterally Cardio Rate: regular rate Rhythm: regular rhythm GI Palpation: soft and no masses Neuro General: patient alert, patient awake and patient oriented x3 Results Last Vital Signs Temp 36.5 C 10/03/20 06:51 Pulse 64 10/03/20 06:51 Resp 18 10/03/20 06:51 BP 162/99 H 10/03/20 06:51 Pulse Ox 96 10/03/20 06:51 COVID-19 Screening Have you, or household traveled for leisure in last 14 days?: No Had IN PERSON contact w/suspected or confirmed C-19 person: No
[2020-10-03] MEDS: Lactated Ringers 1,000 ML 80 ML IV (07:10)
[2020-10-03] MEDS: ceFAZolin 1 GM/50 ML BAG IVPB (07:32)
[2020-10-03] MEDS: Omnipaque 300 MG/ML 50 ML BTL (07:50)
[2020-10-03] MEDS: Lidocaine 2% Jelly 6 ML SYR (08:00)
--- NOTE | 2020-10-03 08:10 | DI.RAD_ITS ---
EXAM: XR RETROGRADE IN OR CLINICAL HISTORY: stent removal, cystoscopy, retrograde. TECHNIQUE: 2D digital imaging was performed. COMPARISON: No exams were available for comparison FINDINGS: Images from retrograde right study reveal passage of a wire up the right ureter. Distal tip of the w benji is in the superior pole calyx region. Total fluoroscopy time 14.2 seconds; cumulative Dose 3.18 mGy IMPRESSION: DATA REPOSITORY: RADIATION DOSE DELIVERED:
--- NOTE | 2020-10-03 08:11 | W.PM.DSUDISC ---
Discharge Plan Disposition Patient Disposition: HOME Condition: Stable Discharge Details Reason For Visit: Right ureteral stricture Attending Provider: Philip Johnson Primary Care Provider: Nathan Diaz [place] Meds and New Rx's Prescriptions: No Action eszopiclone [Lunesta] 1 mg tablet 1 mg PO QHS Qty: 10 RF: 0 (DME) pH test Strip See Rx Instructions .ROUTE .MEDSUPPLY Qty: 100 RF: 12 hydrochlorothiazide 12.5 mg capsule 12.5 mg PO DAILY RF: 0 Eliquis 5 mg tablet 5 mg PO BID RF: 0 pravastatin [Pravachol] 20 mg tablet 20 mg PO QHS RF: 0 escitalopram oxalate [Lexapro] 10 mg tablet 10 mg PO DAILY RF: 0 flecainide 50 mg tablet 50 mg PO BID RF: 0 dutasteride [Avodart] 0.5 mg capsule 0.5 mg PO .weekly RF: 0 diltiazem HCl [Tiazac] 180 mg capsule,extended release 24 hr 180 mg PO DAILY RF: 0 cyanocobalamin (vitamin B-12) 1,000 mcg capsule 1,000 mcg PO QMONTH RF: 0 cholestyramine (with sugar) [Questran] 4 gram powder 4 gm PO TID RF: 0 zolpidem [Ambien] 5 mg tablet 5 mg PO QHS PRNRF: 0 sildenafil [Viagra] 50 mg tablet 50 mg PO PRN PRNRF: 0 polyethylene glycol 3350 17 gram/dose powder 238 g PO ONCE Qty: 238 RF: 0 bisacodyl [Dulcolax (bisacodyl)] 5 mg tablet,delayed release (DR/EC) 5 mg PO ONCE Qty: 4 RF: 0 tramadol 50 mg tablet 50 mg PO Q8H PRN (Reason: pain) Qty: 25 RF: 0 oxybutynin chloride 5 mg tablet 5 mg PO BID-TID PRN (Reason: bladder spasms) Qty: 20 RF: 0 potassium citrate 10 mEq (1,080 mg) tablet extended release 1,080 mg PO BID Qty: 60 RF: 2 Discharge Instructions Additional Instructions: Nuclear renogram with lasix washout in 2 to 4 weeks Followup appt with me after nuclear renogram no need to strain urine continue potassium citrate and sodium bicarbonate to keep urine pH @7 Activity:: Activity as Tolerated Shower/Bathe:: 24 hours Diet:: As Tolerated Discharge Orders Discharge Orders: Discharge Order (Routine); Ordered 10/03/20 Ordered By: Philip Johnson DS: Diagnosis Discharge Diagnosis (1) Hydronephrosis, right: Status: Acute
--- NOTE | 2020-10-03 08:20 | W.PM.OP ---
Date of service: 10/03/20 Time of Service: 08:20 Operative Note Operative Note DATE OF PROCEDURE: 10/03/20 PRE-OP DIAGNOSIS: Right hydronephrosis POST-OP DIAGNOSIS: same PROCEDURE: Cystoscopy, remove right ureteral stent, right retrograde pyelogram, right flexible ureteroscopy SURGEON: Philip Johnson ANESTHESIA TYPE: General:No Airway Refer to Anesthesia Record ESTIMATED BLOOD LOSS: 5 PATHOLOGY: none sent COMPLICATIONS: None Patient was transported to: same day Patient's condition: stable Indications: This is a 74-year-old gentleman who has a history of uric acid stones. Previously, we had done ureteroscopy with holmium laser lithotripsy of right sided stones. On follow-up ultrasound, he had residual right hydronephrosis and the question of a stone in the renal pelvis. I did a retrograde pyelogram and identified a narrowing at the ureteropelvic junction. I was unable to pass my ureteroscope through the area initially, so we did a balloon dilation and placed a 7 Prydeinig ureteral stent. He comes in now to have his stent removed. I plan on running the flexible ureteroscope up the ureter to assess the strictured area. Findings: Able to pass flexible ureteroscope through the strictured area at UPJ No residual renal stone Procedure Description: The patient was given a dose of preoperative antibiotic and brought to the operating room on 09/23/2020. After successful induction of general anesthesia, he was placed in the dorsal lithotomy position. His genitalia was prepped and draped. 2% Xylocaine jelly was instilled into the urethra to act as a local anesthetic. A 22 Prydeinig rigid cystoscope was passed through the urethra into the bladder. The urethra and bladder were inspected with a 30 degree lens. The pendulous, bulbous and membranous urethra was all appeared normal with no strictures. The prostatic urethra showed some lateral lobe enlargement but no significant median lobe. No papillary or nodular lesions were seen on the prostatic urethral mucosa. The bladder neck was entered and the bladder mucosa was inspected. The stent could be seen protruding from the right ureteral orifice. The stent was grasped and alligator forceps and brought to the level of the urethral meatus. A Glidewire was then advanced through the lumen of the stent. The stent was removed leaving the wire in place. I then passed a dual-lumen catheter over the wire and positioned the catheter such that the tip was in the proximal ureter. I then injected Omnipaque through the second lumen of the catheter. There was a narrowing of the ureter near the ureteropelvic junction, but contrast easily flowed into the calyces. I placed a second wire through the dual-lumen catheter and remove the catheter. We chose one of the wires as a working wire and the other is a safety wire. I then passed the ureteral access sheath over the working wire leaving the safety wire in place. The flexible ureteroscope was then advanced through the access sheath up the remainder of the ureter. The narrowed area at the ureteropelvic junction was visualized but there is able to pass the scope through the area rather easily. The narrowed area in question was quite short in length measuring 2 to 3 cm long. The renal pelvis was then entered. The pelvis was dilated. Each of the calyces were visualized and no stones were seen in the renal pelvis or calyces. The scope was removed. We elected to leave the ureteral stent out and to monitor this gentleman with a nuclear renogram with Lasix washout in 2 to 4 weeks. If significant obstruction is identified, we will consider a referral to a tertiary center for a dismembered pyeloplasty using a da Toro robot. He tolerated this procedure well with no complications. He was taken back to the day surgery unit in stable condition.
[2020-10-03 08:47] VITALS: BP 153/89; PULSE 60; RESP 16; TEMP 36.6; O2SAT 94
[2020-10-03] MEDS: Phenazopyridine 200 MG TAB PO (09:05)
--- NOTE | 2020-10-03 09:33 | W.PM.DSUDISC ---
Discharge Plan Disposition Patient Disposition: HOME Condition: Stable Discharge Details Reason For Visit: Right ureteral stricture Attending Provider: Philip Johnson Primary Care Provider: Nathan Diaz [place] Meds and New Rx's Prescriptions: No Action (DME) pH test Strip See Rx Instructions .ROUTE .MEDSUPPLY Qty: 100 RF: 12 oxybutynin chloride 5 mg tablet 5 mg PO BID-TID PRN (Reason: bladder spasms) Qty: 20 RF: 0 tramadol 50 mg tablet 50 mg PO Q8H PRN (Reason: pain) Qty: 25 RF: 0 eszopiclone [Lunesta] 1 mg tablet 1 mg PO QHS Qty: 30 RF: 0 hydrochlorothiazide 12.5 mg capsule 12.5 mg PO DAILY RF: 0 Eliquis 5 mg tablet 5 mg PO BID RF: 0 pravastatin [Pravachol] 20 mg tablet 20 mg PO QHS RF: 0 escitalopram oxalate [Lexapro] 10 mg tablet 10 mg PO DAILY RF: 0 flecainide 50 mg tablet 50 mg PO BID RF: 0 dutasteride [Avodart] 0.5 mg capsule 0.5 mg PO .weekly RF: 0 diltiazem HCl [Tiazac] 180 mg capsule,extended release 24 hr 180 mg PO DAILY RF: 0 cyanocobalamin (vitamin B-12) 1,000 mcg capsule 1,000 mcg PO QMONTH RF: 0 cholestyramine (with sugar) [Questran] 4 gram powder 4 gm PO TID RF: 0 zolpidem [Ambien] 5 mg tablet 5 mg PO QHS PRNRF: 0 sildenafil [Viagra] 50 mg tablet 50 mg PO PRN PRNRF: 0 polyethylene glycol 3350 17 gram/dose powder 238 g PO ONCE Qty: 238 RF: 0 bisacodyl [Dulcolax (bisacodyl)] 5 mg tablet,delayed release (DR/EC) 5 mg PO ONCE Qty: 4 RF: 0 potassium citrate 10 mEq (1,080 mg) tablet extended release 1,080 mg PO BID Qty: 60 RF: 2 Discharge Instructions Additional Instructions: Nuclear renogram with lasix washout in 2 to 4 weeks Followup appt with me after nuclear renogram no need to strain urine continue potassium citrate and sodium bicarbonate to keep urine pH @7 Stand Alone Forms: Anesthesia Discharge Inst., [facility] Cysto, Press Ganey ([facility]) Activity:: Activity as Tolerated Shower/Bathe:: 24 hours Diet:: As Tolerated Discharge Orders Discharge Orders: Discharge Order (Routine); Ordered 10/03/20 Ordered By: Philip Johnson Discharge Data Discharge Date/Time-TO BE ENTERED AT DEPARTURE: 10/03/20 10:07 DS: Diagnosis Discharge Diagnosis (1) Hydronephrosis, right: Status: Acute
[2020-10-03 09:35] VITALS: BP 149/79; PULSE 60; RESP 18; TEMP 36.5; O2SAT 96
[2020-10-03] MEDS: traMADol 50 MG TAB PO (09:46)
[2020-10-03] MEDS: Oxybutynin 5 MG TAB PO (09:47)
== END 2020-10-03 10:07 | disposition home or self-care (01) ==
PROVIDERS: PCP Family Medicine; Visit Provider Urology
PROC: (CPT 74450; principal; 2020-10-03 07:30)
DX: N13.1 Hydronephrosis with ureteral stricture, not elsewhere classified (principal); Z87.442 Personal history of urinary calculi; G47.33 Obstructive sleep apnea (adult) (pediatric)
CPT/HCPCS: 52351; NC; 74420; J0690; J2001; J2405; Q9967

== ENCOUNTER 2020-10-21 04:22 | Outpatient (CLI) | payer MEDICARE, SELFPAY ==
--- NOTE | 2020-10-21 08:30 | DI.NM_ITS ---
CLINICAL HISTORY: r/o obstruction (due to ureteral stricture @UPJ),RT HYDRONEPHROSIS,N13.30. COMPARISON: CT CT ABDOMEN PELVIS WO/W from 06/23/[address] ABDOMEN PELVIS WO/W from 06/23/2019 US US RENAL from 08/29/2020 US US RENAL from 08/29/2020 XR RETROGRADE IN OR from 09/08/2020 XR RETROGRADE IN OR from 09/08/2020 XR RETROGRADE IN OR from 10/03/2020 XR RETROGRADE IN OR from 10/03/2020 EXAMINATION: Dose: 11.7 mCi Tc-99m DTPA Images: Immediately for 1 minute followed by dynamic for 30 minutes. 30mg Lasix was administered afte r peak uptake in the renal cortex at approximately 12 min. FINDINGS: Time to peak: Right: 12 min (< 5 min normal) Left: 3 min (< 5 min normal) Curve Appearance: Right: T1/2 (Lasix to half-Lasix) 15.8 min Left: T1/2 (Lasix to half-Lasix) N/A The time activity curve reveals no delay in the washout of the left collecting system. There is mild delay in washout of the right collecting system. (< 10 min normal, 10-15 min Low grade obstruction, 15-20 min moderate,. 20 min high grade) Split renal function: Right: 45.7 % Left: 54.3 % IMPRESSION: 1. Mildly delayed washout of the right collecting system be secondary to mild UPJ obstruction versus mild dilatation of the renal pelvis.
[2020-10-21] MEDS: Furosemide 40 MG/4 ML VIAL IVP (16:29)
== END 2020-10-21 04:42 ==
PROVIDERS: PCP Family Medicine; Visit Provider Urology
DX: N13.30 Unspecified hydronephrosis (principal)
CPT/HCPCS: 99213; 78708; J1940

== ENCOUNTER 2020-11-08 03:09 | Outpatient (CLI) | payer MEDICARE, SELFPAY ==
[2020-11-08 10:37] LABS: Source Nasal/Nares
[2020-11-08 14:54] LABS: COVID-19 PCR Negative (Negative)
== END 2020-11-08 03:10 | disposition home or self-care (01) ==
LOC: LBO 03:09
PROVIDERS: PCP Family Medicine; Visit Provider Surgery
DX: Z20.822 Contact with and (suspected) exposure to COVID-19 (principal); Z01.818 Encounter for other preprocedural examination
CPT/HCPCS: 87635

== ENCOUNTER 2020-11-11 10:08 | Day surgery (SDC) | payer MEDICARE, SELFPAY ==
[2020-11-11 10:15] VITALS: BP 147/96; PULSE 64; RESP 16; TEMP 35.9; O2SAT 96
--- NOTE | 2020-11-11 10:44 | HPE_ITS ---
Date of service: 11/11/20 Time of Service: 10:44 Assessment and Plan Assessment and plan (1) PAF (paroxysmal atrial fibrillation): Status: Acute (2) Alcohol use: Status: Acute (3) Crohn's disease: Status: Chronic Assessment and plan: :Colonscopy w/ MAC The patient will be scheduled by my office. The pt understands that they need to do a bowel prep and the importance of hydration during this. The patient understands there is a theoretical risk of renal failure. For healthy patients we use Gatorade/Miralax Prep. For anyone with renal concerns- GoLytely will be used. Plavix and coumadin/DOAC will need to be held except in unusual circumstances. Patients in A. Fib do not need to be bridged with Lovenox or on CVA prophylaxis. A baby ASA can be continued but full dose ASA needs to be stopped for 10 days prior to the procedure. A complete H & P is required within 30 days of the procedure. MAC is used for the colonoscopy. Colonoscopy does not require antibiotics prophylaxis. Thank you for allowing me to participate in the care of this Patient. A copy of the Endoscopy report will be forwarded Risks: Informed consent is obtained for the procedural (explained in simple layman's terms that the pt and/or family could understand) explaining risks vs benefits and alternatives to the procedure and consequences if we do not do the procedure and need/rational for the procedure. Risks include but are not limited to: bleeding, infection, perforation of colon. This would necessitate emergency surgery to repair the damage w/ possible ostomy; and other associated complications w/ the required surgery. Also complications of anesthesia including aspiration, LA/CVA/. I discussed with the patient would they could expect during the procedure, post procedure and recovery time and risks. The patient understands that they need to have a ride home after the procedure. The patient was given all this information in writing and expressed understanding. to your office. If there are any questions or concerns please feel free to contact our office. History of Present Illness Consults Consult date: 11/11/20 Narrative: Today: completed prep- still brown. no abdominal pain or cramping. No blood No CP or SOB. no cough or fevers. no problems w/ aenthesia. has been off his noac for 3 days. He has had sigmoid and TI resection All questions answered and stable for the procedure From Consult 09/05/20 Pt seen at the request of PCP regarding colon cancer screening. Pt has had a colon cancer screening before- has last CE was 10 yrs ago. He had speuodpolyps from his Crhn's. He had his TI and ascending colon removed in the 70's for Crhon's. [facility]. He has 3BM a day. No blood. NO artheris or rash. There is no family history of any colon cancer. Pt has not had any weight loss. Their appetite is good. No heartburn or indigestion. No prior prostate surgery. . No problems with anesthesia in the past. He has a Hx of a fib. He is on Flecainide for the A fib. He has been in NSR for 3yrs. He is still on apixaban. He currently has a kidney stone (gross hematorua) and have surgery next week. We should wait a few weeks after this surgery adn than scheulde the CE. He is also concerned about a bulge in the let groin. He does have a small hernia vs lipoma. He has no pain. Patient has a history of: DM: no CVA/LA: no CPAP use: Blood thinners: apixaban Kidney disease: Patient needs to be MAC because of: Medical conditions/airway control Pain control Meds/NKDA/PMHx/PSHx: see [place] ROS: 4 point ROS neg other than the symptoms noted above in the HPI. Review of Systems All systems reviewed & are unremarkable except as noted in HPI and below PFSH Medical History Actinic keratitis Alcohol use Anemia Aortic root dilation Blurred vision Cataract Chronic insomnia Crohn's disease Erectile dysfunction Gross hematuria History of colon polyps Hypertension Inguinal hernia Insomnia Left inguinal hernia Nephrolithiasis BRITTANY (obstructive sleep apnea) PAF (paroxysmal atrial fibrillation) Following up with Dr. Bauer in 3 weeks per pt. 10/16/19 Renal calculus, right Sleep apnea Subcutaneous mass of left forearm Vitamin B 12 deficiency Surgical History History of colectomy Hx of colonoscopy Hx of cystoscopy Status post laser lithotripsy of ureteral calculus Social History Smoking/Tobacco Use Status: Former Tobacco Use Quit Date: 08/19/1959 Tobacco: How many years used: 5 Smoking risk assessment performed?: Yes Alcohol Intake: current Alcohol Intake frequency: 3 or more drinks per day Alcohol type: wine Drug use: Never Substance use type: does not use Details: alcohol: t-1, two glasses of wine What type of physical activity do you participate in: swimming Duration: 15-30 minutes/day Frequency: 5-6 times per week Do you feel safe at home: Yes Do you feel safe in your relationship?: Yes Meds Home Medications and Allergies Allergies Allergy/AdvReac Type Severity Reaction Status Date / Time No Known Allergies Allergy Unverified 11/11/20 10:23 Home Medications Medication Instructions Recorded Confirmed Type apixaban 5 mg tablet 5 mg PO BID 06/29/19 11/11/20 History cholestyramine (with sugar) 4 gram 4 gm PO TID gm 06/29/19 11/11/20 History oral powder cyanocobalamin (vitamin B-12) 1,000 mcg PO QMONTH cap 06/29/19 11/11/20 History 1,000 mcg capsule diltiazem HCl 180 mg capsule,24 180 mg PO DAILY 06/29/19 11/11/20 History hr,extended release dutasteride 0.5 mg capsule 0.5 mg PO .weekly cap 06/29/19 11/11/20 History escitalopram oxalate 10 mg tablet 10 mg PO DAILY 06/29/19 11/11/20 History flecainide 50 mg tablet 50 mg PO BID tab 06/29/19 11/11/20 History hydrochlorothiazide 12.5 mg capsule 12.5 mg PO DAILY 06/29/19 11/11/20 History pravastatin 20 mg tablet 20 mg PO QHS 06/29/19 11/11/20 History zolpidem 5 mg tablet 5 mg PO QHS PRN 06/29/19 11/11/20 History pH test #100 each 11/13/19 11/10/20 Rx sildenafil 50 mg tablet 50 mg PO PRN PRN tab 07/27/20 11/11/20 History bisacodyl 5 mg tablet,delayed 5 mg PO ONCE #4 tab 09/07/20 11/11/20 Rx release polyethylene glycol 3350 17 238 g PO ONCE #238 g 09/07/20 11/11/20 Rx gram/dose oral powder potassium citrate 1,080 mg PO BID #60 tab 09/08/20 11/11/20 Rx eszopiclone 1 mg tablet 1 mg PO QHS #30 tab 10/03/20 11/11/20 Rx oxybutynin chloride 5 mg tablet 5 mg PO BID-TID PRN #20 tab 10/03/20 11/11/20 Rx tramadol 50 mg tablet 50 mg PO Q8H PRN #25 tab 10/03/20 11/11/20 Rx Exam Narrative Exam Narrative: PHYSICAL EXAM GENERAL APPEARANCE: Alert, healthy appearance, oriented, in no acute distress SKIN: No rashes. No breakdown HYDRATION: Well hydrated HEAD, EYES, EARS, NECK, THROAT: Head is normocephalic, pupils equal, round, reactive to light and accommodation, ocular movement intact, sclera clear and no jaundice. Dentition intact. No sore throat. No jaw pain. No thrush NECK: Supple, Trachea midline. No JVD. LUNGS: normal respiration/nl chest excursion. Clear to auscultation B/l no R/R/W HEART: Regular rate and rhythm, EXTREMITY: No edema or cyanosis no leg pain, redness, swelling. No IV infiltration ABDOMEN: non tender to palpation, no masses or distention, no hernias. Normal bowel sounds NEURO: no focal neuro deficits. Results Last Vital Signs Temp 35.9 C L 11/11/20 10:15 Pulse 64 11/11/20 10:15 Resp 16 11/11/20 10:15 BP 147/96 H 11/11/20 10:15 Pulse Ox 96 11/11/20 10:15 COVID-19 Screening Have you, or household traveled for leisure in last 14 days?: No Had IN PERSON contact w/suspected or confirmed C-19 person: No
[2020-11-11] MEDS: Lactated Ringers 1,000 ML 80 ML IV (10:48)
--- NOTE | 2020-11-11 11:19 | BOWEL_PTH ---
PATIENT: Nathan Krueger LOC: [facility] U#:[id number] AGE/SX: 74/M ROOM: RE11/11/[address]: Justine Lane : 1945 BED: DIS: 11/11/2020 SPEC #: [id number] RECD: 11/11/20 12:39 STATUS: PAWEL RE #: [id number] SHANTELLE: 11/11/20 11:[address]: Justine Lane DEPT: Surgical Specimen RECD BY: Anila Estrada ENTERED: 11/11/20 12:40 SP TYPE: Bowel OTHR DR: Nathan Diaz Tissues: 1 - BIOPSY BOWEL 2 - BIOPSY BOWEL 3 - BIOPSY BOWEL 4 - BIOPSY BOWEL 5 - BIOPSY BOWEL 6 - BIOPSY BOWEL 7 - BIOPSY BOWEL Procedures: GROSS AND MICRO LEVEL 4 Comments: [id number]
--- NOTE | 2020-11-11 12:15 | COLE_ITS ---
Date of service: 11/11/20 Time of Service: 12:16 Colonoscopy Report Date of procedure: 11/11/20 Pre-op diagnosis general: Crohn's Post-op diagnosis procedure note: same Surgeon: Justine Lane Anesthesia Type: General LMA/ETT Estimated blood loss (mL): 1 Pathology: other Complications: None Disposition: same day Retraction Time: 15 mins Procedure Description: After informed consent was obtained the patient was taken to the procedure room and placed in a left decubitous position. Monitors were applied and a time out was done. The patients name, date of , procedure, allergies to medications and metal in their body was reviewed. The patient was then sedated. Once sedated and comfortable a rectal exam was done. External exam was normal. Internal exam revealed a normal sphincter tone and no palpable masses. The scope was then introduced and retrofelexed. NO internal hemorrhoids were identified. The scope was then advanced to the anastomosis. I was able to get colon to the terminal ileum. Biopsy of the terminal ileum was taken. The anastomosis showed some mild erythema. It was not able to get a biopsy of this. Biopsies are taken randomly of the right colon mid transverse colon superior sigmoid and lower sigmoid and the rectum. The mucosa looks pink and healthy. He does have quite a few pseudopolyps, which are most likely from longstanding Crohn's. Several, at least, 4 of these were sampled, that were noted at 40 cm. Using a cold biting foracept. He has had a previous sigmoid resection and these anastomosis are widely patent. This is a colon anastomosis to the ileum is widely patent there is no signs of recurrent Crohn's disease. He does have scattered large diverticula throughout the entirety of the colon. There is no signs of any active bleeding or infection. There is no anal disease at this ti me. Patient tolerated procedure well without complication and remained awake throughout the entirety of the procedure. . The scope was removed and the patient was woken up and taken back to Same day surgery in stable condition. Retraction x15 minutes. The patient tolerated the procedure well and there were no immediate complications. Follow up: The patient does not require any further colonoscopies, unless he starts to have problems with bleeding or diarrhea from his Crohn's. Unless they develop changes in bowel habits or other new gastrointestinal complaints.
[2020-11-11 12:17] VITALS: BP 152/92; PULSE 58; RESP 16; TEMP 36.4; O2SAT 94
--- NOTE | 2020-11-11 12:20 | PDOC.DSDIS_ITS ---
Discharge Plan Disposition Patient Disposition: HOME Condition: Good Discharge Details Reason For Visit: colon scope Attending Provider: Justine Lane Primary Care Provider: Nathan Diaz [place] Meds and New Rx's Prescriptions: Continued (DME) pH test Strip See Rx Instructions .ROUTE .MEDSUPPLY Qty: 100 RF: 12 oxybutynin chloride 5 mg tablet 5 mg PO BID-TID PRN (Reason: bladder spasms) Qty: 20 RF: 0 tramadol 50 mg tablet 50 mg PO Q8H PRN (Reason: pain) Qty: 25 RF: 0 eszopiclone [Lunesta] 1 mg tablet 1 mg PO QHS Qty: 30 RF: 0 hydrochlorothiazide 12.5 mg capsule 12.5 mg PO DAILY RF: 0 Eliquis 5 mg tablet 5 mg PO BID RF: 0 pravastatin [Pravachol] 20 mg tablet 20 mg PO QHS RF: 0 escitalopram oxalate [Lexapro] 10 mg tablet 10 mg PO DAILY RF: 0 flecainide 50 mg tablet 50 mg PO BID RF: 0 dutasteride [Avodart] 0.5 mg capsule 0.5 mg PO .weekly RF: 0 diltiazem HCl [Tiazac] 180 mg capsule,extended release 24 hr 180 mg PO DAILY RF: 0 cyanocobalamin (vitamin B-12) 1,000 mcg capsule 1,000 mcg PO QMONTH RF: 0 cholestyramine (with sugar) [Questran] 4 gram powder 4 gm PO TID RF: 0 zolpidem [Ambien] 5 mg tablet 5 mg PO QHS PRNRF: 0 sildenafil [Viagra] 50 mg tablet 50 mg PO PRN PRNRF: 0 potassium citrate 10 mEq (1,080 mg) tablet extended release 1,080 mg PO BID Qty: 60 RF: 2 Discontinued polyethylene glycol 3350 17 gram/dose powder 238 g PO ONCE Qty: 238 RF: 0 bisacodyl [Dulcolax (bisacodyl)] 5 mg tablet,delayed release (DR/EC) 5 mg PO ONCE Qty: 4 RF: 0 Discharge Instructions Additional Instructions: Findings: diverticula- no infectons mild changes from chronic Crohn's. No active Disease -resume Eliquis on Tuesday 11/14 am. Follow up: if you are having problems w/ bleeding or diarrhea, F/u for consideration of repeat CE. Otherwise, does not require any further CE's. Please call if you develop: fevers >101.5 Nausea or Vomiting Abdominal pain that is not transient DAY SURGERY UNIT POST COLONOSCOPY INSTRUCTIONS 1. Because there will be medication in your system for the next 24 hours, you may feel a little sleepy. Your coordination will be affected. Therefore: a. Do not drive or operate dangerous equipment for 24 hours. b. Do not drink alcohol beverages for 24 hours (not even beer). c. Plan to go home and rest for the day. 2. Generally there are no restrictions on your activity after a day or so has gone by, but you may feel a bit fatigued for a few days. 3 After you arrive home you may have a light meal and return to a normal diet as you can tolerate it without feeling sick to your stomach. 4. After surgery, you may feel pain or discomfort. This should be only transient, but if it persists please contact your doctor. 5. If there are any questions regarding the findings of your procedure, please feel free to contact your doctor. 6. If you are unable to contact your doctor with a problem, contact the hospital at [phone]. 7. Continue all your regular medications unless directed otherwise. I understand the above instructions and have no questions. Signature of Patient or Responsible Adult Escort Date/Time Name of Responsible Adult Escort Signature of Nurse Date/Time Activity:: No lifting over 20 pounds or strenuous activity x24 hours Diet:: Small light meals x24 hours. Discharge Orders Discharge Orders: Discharge Order (Routine); Ordered 11/11/20 Ordered By: Justine Lane DS: Diagnosis Discharge Diagnosis (1) PAF (paroxysmal atrial fibrillation): Status: Acute (2) Alcohol use: Status: Acute (3) Crohn's disease: Status: Chronic
== END 2020-11-11 12:58 | disposition home or self-care (01) ==
PROVIDERS: PCP Family Medicine; Visit Provider Surgery
PROC: 0DJD8ZZ Inspection of Lower Intestinal Tract, Via Natural or Artificial Opening Endoscopic (ICD-10-PCS; CPT 45378; principal; 2020-11-11 11:00)
DX: Z12.11 Encounter for screening for malignant neoplasm of colon; K63.89 Other specified diseases of intestine; K62.9 Disease of anus and rectum, unspecified; K57.30 Diverticulosis of large intestine without perforation or abscess without bleeding; Z98.0 Intestinal bypass and anastomosis status; Z90.49 Acquired absence of other specified parts of digestive tract; K50.90 Crohn's disease, unspecified, without complications
CPT/HCPCS: 45380; 88305; 99221

== ENCOUNTER → 2020-11-21 14:22 | Outpatient (BNVA) | payer MEDICARE, SELFPAY | PROVIDERS: PCP Family Medicine; Referring Provider Family Medicine; Visit Provider Internal Medicine Cardiovascular Disease | DX: I42.9 Cardiomyopathy, unspecified (principal); I48.91 Unspecified atrial fibrillation | CPT/HCPCS: 99214 ==

== ENCOUNTER 2020-11-21 16:18 | Outpatient (REF) | payer MEDICARE, SELFPAY ==
[2020-11-21 16:58] LABS: Anion Gap 11.5 mmol/L (3-11); BUN 17 mg/dL (7-18); CO2 27.5 mmol/L (21.0-32.0); Chloride 104 mmol/L (98-107); Glucose 108 mg/dL (74-106); Potassium 3.8 mmol/L (3.5-5.1); Sodium 143 mmol/L (136-145)
== END 2020-11-21 16:19 | disposition home or self-care (01) ==
LOC: LBN 16:18
PROVIDERS: PCP Family Medicine; Visit Provider Family Medicine
DX: N20.0 Calculus of kidney (principal)
CPT/HCPCS: 80048

== ENCOUNTER 2020-12-13 01:25 | Outpatient (CLI) | payer MEDICARE, SELFPAY ==
--- NOTE | 2020-12-13 14:00 | DI.US_ITS ---
APPROVED REPORT EXAM: Comprehensive 2D, Doppler, and color-flow Echocardiogram Patient Location: Out-Patient Job Recruiter: Nelia Larson RDCS (AE) Indications: Dilated Ascending Aorta Other Information Study Quality: Good Conclusion Left Ventricle : The left ventricle is normal size. The left ventricular systolic function is normal. The left ventricular ejection fraction is within the normal range. There is normal left ventricular wall thickness. There is normal LV segmental wall motion. The left ventricular diastolic function is normal. LVEF is 57%. Right Ventricle : The right ventricle is normal size. The right ventricular systolic function is norm al. The RVSP is 26.5mmHg. Atria : Left atrium is moderately dilated. Right atrium is mildly dilated. Aortic Valve : The aortic valve is normal in structure. Aortic valve is trileaflet. Trace aortic regu rgitation. There is no aortic valvular stenosis. Mitral Valve : Mild mitral annular calcification. Mild to moderate mitral regurgitation. No evidence of mitral valve stenosis. Great Vessels : The aortic root is normal in size. The ascending aorta is severely dilated (4.5cm). A ortic arch is not well visualized. IVC is normal in size and collapses >50% with inspiration. Compared to echocardiogram from September 2019, there is no significant change. Wall motion Left Ventricle The left ventricle is normal size. The left ventricular systolic function is normal. The left ventric ular ejection fraction is within the normal range. There is normal left ventricular wall thickness. T here is normal LV segmental wall motion. The left ventricular diastolic function is normal. There is no ventricular septal defect visualized. LVEF is 57%. Right Ventricle The right ventricle is normal size. The right ventricular systolic function is normal. The RVSP is 26 .5mmHg. Atria Left atrium is moderately dilated. Right atrium is mildly dilated. The interatrial septum is intact w ith no evidence for an atrial septal defect. Aortic Valve The aortic valve is normal in structure. Aortic valve is trileaflet. There is no aortic valvular sten osis. Trace aortic regurgitation. Mitral Valve Mild mitral annular calcification. No evidence of mitral valve stenosis. Mild to moderate mitral regu rgitation. Tricuspid Valve The tricuspid valve is normal in structure. There is no tricuspid valve stenosis. Mild to moderate tr icuspid regurgitation. Pulmonic Valve The pulmonary valve is normal in structure. There is no pulmonic valvular stenosis. Mild pulmonic reg urgitation. Great Vessels The aortic root is normal in size. The ascending aorta is severely dilated (4.5cm). Aortic arch is no t well visualized. IVC is normal in size and collapses >50% with inspiration. Pericardium There is no pericardial effusion. 2D Dimensions IVSD d PLAX 1.11 cm M: 0.6-1.2 LV Vol A2C d MOD 130.1 mL LVPW d PLAX 1.13 cm M: 0.6 - 1.2 LV Vol A4C d MOD 184.0 mL LVID d PLAX 5.33 cm M: 4.2 - 5.8 LA vol/ BSA A2C s A-L 41.8 mL/m2 LVDs 3.75 cm M: 2.5 - 4.0 LA vol/ BSA A4C s A-L 45.7 mL/m2 Ao Root d 3.16 cm M: 3.1 - 3.7 LA Vol/ BSA Biplane s A-L 46.6 mL/m2 RA Area A4C 20.57 cm2 LA Area A4C s MOD 28.02 cm2 RA Vol/ BSA A4C s A-L 28.9 mL/m2 LA Area A2C s MOD 25.11 cm2 Ao Asc Diam d 4.53 cm M: 2.6 - 3.4 LV EF A4C MOD 57.3 % LV EF Teichholz 56.1 % LV EF A2C MOD 57.1 % LVEF (Dang's) 57.08 % M: 52 - 72 LV EF Biplane MOD 57.1 % LV Volume 112.71 mL M: 62 - 150 SV 88.68 mL LV Volume Index 50.77 mL/m2 M: 34 - 74 SV Index 39.97 mL/m2 LV Vol Biplane MOD 155.4 mL FS 29.55 % M-Mode TAPSE 2.78 cm (M/F) >1.7 LV Diastology MV E' medial 0.066 (>0.07 m/s) E/A Ratio 1.0 LV E/e MED 10.40 (<14) MV E Vmax 0.69 (0.4-1.3 m/s) MV E' lateral 0.115 (>0.1 m/s) MV A Vmax 0.70 (0.4-1.3 m/s) LV E/e LAT 5.95 (<14) MV E/A Ratio 0.92 MV E/E' medial 10.43 MV E/E' lateral 5.99 Aortic Valve LVOT Area 3.90 cm2 AoV Area Vmax 3.35 cm2 LVOT Vmax 1.02 m/s AoV Area/ BSA (Vmax) 1.51 cm2/m2 LVOT Mean Gil. 0.71 m/s EDWARD Mean Gil. 3.11 cm2 LVOT Peak Grad 4.1 mmHg EDWARD Mean Gil. Index 1.40 cm2/m2 LVOT Mean Grad 2.3 mmHg AR DT 3119 msec LVOT VTI 0.212 m AR PHT 905 msec LVOT Diam s 2.20 cm AoV Vmax 1.19 m/s Velocity Ratio 0.85 AoV Mean Gil. 0.90 m/s AoV Peak Grad 5.6 mmHg LVOT SV 82.94 mL AoV Mean Grad 3.4 mmHg AoV VTI 0.282 m AoV Area VTI 2.94 cm2 AoV Area/ BSA (VTI) 1.33 cm/m2 Mitral Valve MV DT 341 (160-240 msec) MR Vmax 4.89 m/s MV PHT 99 msec MR VTI 1.763 m MV Area PHT 2.22 cm2 MR Peak Grad 95.6 mmHg MV VTI 0.281 m MR Mean Grad 72.9 mmHg MV VTI Annulus 0.273 m MR PISA Radius 0.53 cm MV Area VTI 2.86 (4.0-6.0 cm2) MR EROA 0.13 cm2 MR Aliasing Velocity 0.35 m/s MR PISA 1.77 cm2 Pulmonary Valve PV Vmax 1.12 (0.5-1.5 m/s) RVOT Peak Gr. 2.51 mmHg PV Peak Grad 5.0 mmHg RVOT Mean Gr. 1.15 mmHg PV Mean Grad 2.6 mmHg RVOT VTI 0.179 m PV VTI 0.233 m RVOT Vmax 0.79 m/s Tricuspid Valve TR Peak Grad 23.5 mmHg TR Vmax 2.43 m/s RA Pressure 3.00 mmHg RVSP (TR) 26.5 mmHg
== END 2020-12-13 01:45 ==
PROVIDERS: PCP Family Medicine; Visit Provider Internal Medicine Cardiovascular Disease
DX: I10 Essential (primary) hypertension (principal); I77.810 Thoracic aortic ectasia; I08.1 Rheumatic disorders of both mitral and tricuspid valves; I37.1 Nonrheumatic pulmonary valve insufficiency
CPT/HCPCS: 93306

== ENCOUNTER 2021-02-10 16:49 | Outpatient (REF) | payer MEDICARE, SELFPAY ==
[2021-02-10 19:28] LABS: Abs Immature Grans 0.01 10^3/uL (0.0-0.06); Absolute Basophil Count 0.07 10^3/uL (0.0-0.2); Absolute Eosinophil Count 0.22 10^3/uL (0.0-0.7); Absolute Lymphocyte Count 1.88 10^3/uL (1.2-3.4); Absolute Monocyte Count 0.58 10^3/uL (0.1-0.8); Absolute Neutrophil Count 2.62 10^3/uL (1.2-6.7); Basophils % 1.3; Eosinophils % 4.1; HCT 36.7 % (40.0-50.0); HGB 12.7 g/dL (13.5-17.5); Immature Grans % 0.2; Lymphocytes % 34.9; MCH 32.6 pg (27.0-33.0); MCHC 34.6 % (32.0-36.0); MCV 94.1 fL (80-95); MPV 10.9 fL (8.0-11.0); Monocytes % 10.8; Neutrophils % 48.7; Nucleated RBC 0 %; Platelet Count 160 10^3/uL (130-400); RDW 12.3 % (11.8-14.1); RDW-SD 42.5 fL; WBC 5.38 10^3/uL (4.4-10.8)
[2021-02-10 19:51] LABS: Iron 96 ug/dL (65-175); Total Iron Binding Capacity 407 ug/dL (250-450); Transferrin Sat 24 % (20-55)
[2021-02-10 20:23] LABS: Ferritin 154 ng/mL (26-388); Vitamin B12 408 pg/mL (193-986)
[2021-02-13 09:30] LABS: HIV-1/2 Ag & Ab Screen Negative (Negative)
== END 2021-02-10 16:50 | disposition home or self-care (01) ==
LOC: NCHCN 16:49
PROVIDERS: PCP Family Medicine; Visit Provider Family Medicine
DX: D64.9 Anemia, unspecified (principal); E53.8 Deficiency of other specified B group vitamins; K50.90 Crohn's disease, unspecified, without complications; D72.819 Decreased white blood cell count, unspecified
CPT/HCPCS: 87389; 82607; 82728; 83540; 83550; 85025

== ENCOUNTER 2021-04-06 13:33 | Outpatient (CLI) | payer MEDICARE, SELFPAY ==
[2021-04-06 10:32] LABS: Abs Immature Grans 0.02 10^3/uL (0.0-0.06); Absolute Basophil Count 0.06 10^3/uL (0.0-0.2); Absolute Eosinophil Count 0.29 10^3/uL (0.0-0.7); Absolute Monocyte Count 0.65 10^3/uL (0.1-0.8); Absolute Neutrophil Count 3.13 10^3/uL (1.2-6.7); HCT 36.3 % (40.0-50.0); Immature Grans % 0.3; Lymphocytes % 29.1; MCH 31.7 pg (27.0-33.0); MCHC 33.1 % (32.0-36.0); MPV 9.8 fL (8.0-11.0); Monocytes % 11.1; Neutrophils % 53.5; Nucleated RBC 0 %; Platelet Count 144 10^3/uL (130-400); RBC 3.78 10^6/uL (4.36-5.78); RDW 12.2 % (11.8-14.1); RDW-SD 42.8 fL; Reticulocyte 1.5 % (0.5-2.4); WBC 5.85 10^3/uL (4.4-10.8)
[2021-04-06 10:57] LABS: Folate 8.9 ng/mL (8.6-20.0); TSH 1.84 uIU/mL (0.36-3.74)
--- OUTSIDE RECORDS SUMMARY | 2021-04-06 13:39 | XMS_ITS ---
:1945 Author Care Team Providers Name Role Phone ELENITA PATTON MD ([facility]) Primary Care Provider [phone] [facility] REC[facility]DS OTHER [phone] Allergies Code Code System Name Reaction Severity Status Onset NKDA ? Medications Name Status Start Date Stop Date ? ? Ambien 5 mg tablet Active ? Not available Take 1 tablet every day by oral route. BD Eclipse Luer-Lindy 25 gauge x 1 / Completed ? 08/02/2020 needle Cholestyramine Light 4 gram oral powder Active ? Not available Take 1 scoop 3 times a day by oral route. cyanocobalamin (vit B-12) 1,000 mcg sublingual tablet Completed ? 08/02/[address] Place by sublingual route. diltiazem CD 180 mg capsule,extended release 24 hr Active ? Not available Take 1 capsule every day by oral route. dutasteride 0.5 mg capsule Active ? Not a vailable Take 1 capsule every day by oral route. Eliquis 5 mg tablet Active ? Not availabl e Take 1 tablet twice a day by oral route. escitalopram 10 mg tablet Active ? Not av ailable Take 1 tablet every day by oral route. flecainide 50 mg tablet Active ? Not avai lable Take 1 tablet every 12 hours by oral route. hydrochlorothiazide 12.5 mg capsule Completed ? 08/02/2020 Take 1 capsule every day by oral route. pravastatin 20 mg tablet Active ? Not omar ilable Take 1 tablet every day by oral route. Viagra 50 mg tablet Completed ? 08/02/2020 Take 1 tablet every day by oral route. Problems Name Status Onset Date Source ? Cobalamin Deficiency Active 06/09/2020 ? Anemia Active 06/09/2020 ? Erectile Dysfunction Active 06/09/2020 ? Alcohol Dependence Active 06/09/2020 ? Insomnia Active 06/09/2020 ? Hypertensive Disorder Active 06/09/2020 ? Atrial Fibrillation Active 06/09/2020 ? Inguinal Hernia Active 06/09/2020 ? Crohn's Disease Active 06/09/2020 ? History of Polyp of Colon Active 06/09/2020 ? Obstructive Sleep Apnea Syndrome Active ? ? Procedures Date Name Performed by ? 11/09/2020 Polysomnogram Information not avai lable Results Lab Results None recorded. Past Encounters 03/08/2021 Obstructive Sleep Apnea Syndrome Susan Crain [employer]ERSON [employer]EL[employer]: [address] [place] [phone], Ph. 02/07/2021 Obstructive Sleep Apnea Syndrome Susan Crain [employer]: [address] [place] [phone], Ph. 08/02/2020 Obstructive Sleep Apnea Syndrome; Insomn ia Susan Crain [employer]: [address] [place] [phone], Ph. Social History Tobacco Smoking Status Never Smoker Vaccine List None recorded. Plan of Care Reminders Provider Appointments None ? ? recorded. Lab None ? ? recorded. Referral None ? ? recorded. Procedures None ? ? recorded. Surgeries None ? ? recorded. Imaging None ? ? recorded. Vitals 03/08/2021 08:00AM Office 30 Height Weight BMI Blood Pressure 187.96 cm 95.25 kg 27 kg/m2 136/66 mm[Hg] 02/07/2021 12:30PM Office 30 Height Weight BMI Blood Pressure 187.96 cm 95.25 kg 27 kg/m2 129/68 mm[Hg] 08/02/2020 01:15PM New Patient 44 Height Weight BMI Blood Pressure 187.96 cm 97.98 kg 27.7 kg/m2 134/88 mm[Hg]
--- OUTSIDE RECORDS SUMMARY | 2021-04-06 13:40 | XMS_ITS | Encounter Summary ---
:1945 Author Care Team Providers Name Role Phone Nathan Diaz MD ([facility]) Primary Care Provider [phone] [facility] Medical Records OTHER [phone] Reason for Visit None recorded. Assessment and Plan 1. Obstructive sleep apnea syndr ome BRITTANY diagnosed at an outside fa cility years ago. He attempted CPAP and had poor tolerance at that time (mask and pressure). He also tried an oral appliance with poor tolerance. He had a repeat PSG 12/16/20 with an AHI of 58.7/hr. He r ecently started back on CPAP 5-10 cm. He has good compliance but his residual AHI is 22.2/hr with most events reported as obstructive apneas. His mean pressure is 8.9 cm and 90 th percentile pressure 10 cm. Today I set his CPAP to 9-16 cm. I would like to see him back in two months for a compliance review. He has significant improvement in his sleep quality and nocturia and wakes more refreshed. He fernandes s some air leaking despite changing the cushion monthly so I recommended a mask liner and that he put the mask on more snug. I also fit him with an Airfit F20 siz e small. He had many questions about the maintenance, masks and billing of CPAP which were answered to his satisfaction. Continued use of CPAP is recommended. I will see him back in two months. He is as ked to call the clinic for any sleep rel ated questions or concerns. I provided greater than 30 minutes in th e care of this patient, more than half the time was spent in deae-km-hwut counseling. ? CPAP supplies Discussion Note: None recorded.Patient educational handouts: No information available. Plan of Care Reminders Provider Appointments Return to on or around Hakeem Crain, Office 09/08/2021 [facility] Lab None ? ? recorded. Referral None ? ? recorded. Procedures None ? ? recorded. Surgeries None ? ? recorded. Imaging None ? ? recorded. Medications Name Start Date ? ? Ambien 5 mg tablet ? Take 1 tablet every day by oral route. Cholestyramine Light 4 gram oral powder ? Take 1 scoop 3 times a day by oral route. diltiazem CD 180 mg capsule,extended release 24 hr ? Take 1 capsule every day by oral route. dutasteride 0.5 mg capsule ? Take 1 capsule every day by oral route. Eliquis 5 mg tablet ? Take 1 tablet twice a day by oral route. escitalopram 10 mg tablet ? Take 1 tablet every day by oral route. flecainide 50 mg tablet ? Take 1 tablet every 12 hours by oral route. pravastatin 20 mg tablet ? Take 1 tablet every day by oral route. Medications Administered None recorded. Vitals Height Weight BMI Blood Pressure 6 ft 2 in 210 lbs 27 kg/m2 129/68 mm[Hg] Results Lab Results None recorded. Allergies Code Code System Name Reaction Severity Onset NKDA ? ? ? Problems Name Status Onset Date Source ? [...] Sleep Apnea Syndrome Active ? ? Procedures None recorded. Vaccine List None recorded. Social History Tobacco Smoking Status Never Smoker Animal exposure? N What is your level of alcohol Occasional Notes: a few glasses of wine consumption? each day Live alone or with others? with others Notes: wif e Are you currently employed? N Are you blind or do you have N difficulty seeing? What is your code status? 0 Hard of hearing or deaf in one or N both ears? What is your level of caffeine None consumption? Functional Status No Impairment. Past Encounters 02/07/2021 Obstructive Sleep Apnea Syndrome Susan Crain NP: [address] [place] [phone], Ph. History of Present Illness Note: <p>Nathan Encarnacionshwethaedwin has a visit for BRITTANY follow-up.</p><p>
</p><p>Nathan was seen by me on 08/02/20. He has a medical history to include anemia of chronic disease, alcohol dependence, migraines, a-fib, B12 deficiency, aortic root dilation, Crohn's, ED, HTN, insomnia and BRITTANY. Labs reviewed from 09/07/19 ferritin (194), iron, TIBC, CRP all wnl. CBC RBC 4.21, H/H 13.2/39.9. Split PSG 10/21/03 (BMI 22.5) moderate to severe sleep disordered breathing is seen, CPAP was titrated to 8 cm with poor tolerance because air pressure felt too high. CPAP 6 cm recommended. He attempted to use CPAP at 6 cm for just a few nights and he did not like having a mask on his face, and the noise annoyed him. He never made it more than an hour or so before he had to remove it. He also tried an oral appliance about 6 to 7 years ago and found it ineffective and annoying and would wake him up.</p><p>He noted symptoms of sleep fragmentation, fatigue, loud snoring, and nocturia. I ordered CPAP 5-10 cm and his insurance required an updated PSG. PSG 12/16/20 (BMI 27.73), AHI 58.7/hr, sp02 tomas 63%, PLMi 3.5/hr, PLMai 0.5/hr. CPAP ordered 12/26/20.</p><p><br&g t;</p><p>Nathan tells me he is using CPAP nightly. He thinks things are going pretty well. His only problem is that he is often waking up in the early mornings with air leaking and this wakes him up. </p><p>He says he is sleeping deeper and longer since starting CPAP. His nocturia is significantly improved and he feels more refreshed upon waking. He had to go about a week without CPAP because his mask ripped and he had to wait for a new cushion to be mailed. </p><p>
</p><p>ESS today 11/09</p><p>
</p><p>COMPLIANCE DATA REVIEWED WITH PATIENT: {{01/07/21-02/05/21# DATES}}, Used {{21# 25 30}}/30 days, average use {{9# 5 6}} hours {{6# number}} minutes a night, mean pressure {{8.9# 8 9}}cm, 90 th percentile pressure {{10# 9 10}}cm, time in large air leak {{26# 5 10}} minutes, AHI {{22.2# 1 2}}/hour.</p>Review of Systems: ROS as noted in the HPI Review of Systems None recorded. Physical Exam ? Notes: <p>General: A&O, well groome d {{over weight obese morbidly obese normal weight * thin}}.
HEAD: n ormocephalic & atraumatic.
EYES: non icteric.
LUNGS: CTA all f ields. Good air movement.
CARDIO: RRR without murmur, gallop or thrill.
NEURO: A&O. Normal gait.
PSYCH: Normal mood and affect.
CUTANEOUS: no overt lesions or rashes</p>
--- OUTSIDE RECORDS SUMMARY | 2021-04-06 13:40 | XMS_ITS | Encounter Summary ---
:1945 Author Care Team Providers Name Role Phone Nathan Diaz MD ([facility]) Primary Care Provider [phone] [facility] Medical Records OTHER [phone] Reason for Visit None recorded. Assessment and Plan 1. Obstructive sleep apnea syndr ome BRITTANY diagnosed at an outside fa cility years ago. He attempted CPAP and had poor tolerance at that time (mask and pressure). He also tried an oral appliance with poor tolerance. He had a repeat PSG 12/16/20 with an AHI of 58.7/hr. At h is last visit I set CPAP to 9-16 cm and he tolerated the pressure ok and his AHI was better but he had excessive leaking and had to put the mask on so tight that he was waking with periorbital edema toma t lasted all day. He recently lowered the pressure himself to a fixed pressure of 9 cm and he did better with this (much less leaking, he was able to loosen mask and swelling was better).He had tried th e Dreamwear full face mask and had too much air leaking with this. For now he wants to stay on a lower pressure even though he understands his AHI will not be at goal. He is going to try a fixed pressur e of 10 cm. He has not yet tried an Tahmina View mask and this may seal better and prevent leaking and allow him to tolerate a higher pressure. I put in an order fo r this. He will have a six month follow- up. He is encouraged to keep up with the routine maintenance of the machine and to clean and replace parts as indicated. I will see him back in six months. He is asked to call the clinic for any sleep r elated questions or concerns. I provided greater than 30 minutes in th e care of this patient, more than half the time was spent in [id number] counseling. ? CPAP supplies Discussion Note: None recorded.Patient educational handouts: No information available. Plan of Care Reminders Provider Appointments Return to on or around Hakeem Crain, Office 09/08/2021 [employer] Lab None ? ? recorded. Referral None [...] ft 2 in 210 lbs 27 kg/m2 136/66 mm[Hg] Results Lab Results None recorded. Allergies [...] consumption? Functional Status No Impairment. Past Encounters 03/08/2021 Obstructive Sleep Apnea Syndrome Susan Crain [employer]: [address] [place] [phone], Ph. 02/07/2021 Obstructive Sleep Apnea Syndrome Susan Crain, [employer]: [address] [place] [address] [address], [place] [phone], Ph. History of Present Illness Note: <p>Nathan Krueger has a visit for BRITTANY follow-up. he checked in 15 minutes late. </p><p>
</p><p>Nathan was seen by me on 02/07/21. He has a medical history to include [...] 63%, PLMi 3.5/hr, PLMai 0.5/hr. CPAP ordered 12/26.</p><p>
</p><p>Last visit he was using CPAP 5-10 cm with a residual AHI of 22.2/hr. I set CPAP to 9-16 cm and fit him with a small F20 and recommended a mask liner for leaking. </p><p>
</p><p>Nathan is using CPAP every night. He says he is getting swelling and water accumulation under his eyes when he uses the Airtouch F20 so he does not want to use it anymore. He then set his CPAP to 9 cm which allowed him to loosen the mask and the swelling was not so bad in the morning. He tried the Dreamwear full face and it leaked too much with the higher pressure. </p><p>
</p><p>COMPLIANCE DATA REVIEWED WITH PATIENT: </p>{{02/04/21-03/05/21# DATES}}, Used {{30# 25 30}}/30 days, average use {{10# 5 6}} hours {{25# number}} minutes a night, mean pressure {{11.7# 8 9}}cm, 90 th percentile pressure {{16# 9 10}}cm, time in large air leak {{21# 5 10}} minutes, AHI {{13.7# 1 2}}/hour.<p></p>Review of Systems: ROS as noted in the HPI Review of Systems None recorded. Physical Exam ? Notes: <p>General: A&O, well groome d </p>{{mildly over weight # over weight obese morbidly obese normal weig ht thin}}.
HEAD: normocephalic & atraumatic.
EYES: non ict zen.
LUNGS: CTA all meade. Good air movement.
CARDIO: RRR wit hout murmur, gallop or thrill.
NEURO: A&O. Normal gait.
PSYCH: Rin l mood and affect.
CUTANEOUS: no overt lesions or rashes<p></p>
[2021-04-07 13:47] LABS: Albumin 53.4 % (55.8-66.1); Total Protein 7.5 g/dL (6.3-8.2)
[2021-04-08 13:35] LABS: Erythropoietin 12.4 mIU/mL (2.6 - 18.5)
== END 2021-04-06 13:34 | disposition home or self-care (01) ==
LOC: LBO 13:38
PROVIDERS: PCP Family Medicine; Visit Provider Internal Medicine Hematology & Oncology
DX: R53.83 Other fatigue (principal); D64.9 Anemia, unspecified
CPT/HCPCS: 36415; 82668; 82746; 84165; 84443; 85025; 85045

== ENCOUNTER → 2021-06-12 12:54 | Outpatient (BNVA) | payer MEDICARE, SELFPAY | PROVIDERS: PCP Family Medicine; Referring Provider Family Medicine; Visit Provider Internal Medicine Cardiovascular Disease | DX: I48.0 Paroxysmal atrial fibrillation (principal); I10 Essential (primary) hypertension; I71.2 Thoracic aortic aneurysm, without rupture; Z79.01 Long term (current) use of anticoagulants | CPT/HCPCS: 99214; 99213 ==

== ENCOUNTER 2021-10-11 16:00 | Outpatient (REF) | payer MEDICARE, SELFPAY ==
--- NOTE | 2021-10-11 15:30 | SKI_PTH ---
PATIENT: Nathan Krueger LOC: [facility]#:[id number] AGE/SX: 75/M ROOM: RE10/11/[address]: Nathan Diaz : 1945 BED: DIS: 10/11/2021 SPEC #: [id number] RECD: 10/12/21 12:54 STATUS: PAWEL PETERSEN #: [id number] SHANTELLE: 10/11/21 15:[address]: Nathan Diaz DEPT: Surgical Specimen RECD BY: Anila Estrada Tissues: 1 - SKIN BIOPSY(SHAVE/PUNCH) Procedures: SKIN LEVEL 4 Comments: [id number]
== END 2021-10-11 16:01 | disposition home or self-care (01) ==
LOC: NCHCN 16:00
PROVIDERS: PCP Family Medicine; Visit Provider Family Medicine
DX: C44.319 Basal cell carcinoma of skin of other parts of face (principal)
CPT/HCPCS: 88305

== ENCOUNTER → 2021-10-20 10:21 | Outpatient (BNVA) | payer MEDICARE, SELFPAY | PROVIDERS: PCP Family Medicine; Referring Provider Family Medicine; Visit Provider Urology | DX: N20.0 Calculus of kidney (principal); N40.1 Benign prostatic hyperplasia with lower urinary tract symptoms; R31.0 Gross hematuria | CPT/HCPCS: 81003; 99214 ==

== ENCOUNTER 2021-10-20 13:25 | Outpatient (REF) | payer MEDICARE, SELFPAY ==
[2021-10-23 11:06] LABS: PSA, Diagnostic 0.4 ng/mL (0.0-6.5)
== END 2021-10-20 13:26 | disposition home or self-care (01) ==
LOC: LBN 13:25
PROVIDERS: PCP Family Medicine; Visit Provider Urology
DX: N40.1 Benign prostatic hyperplasia with lower urinary tract symptoms (principal)
CPT/HCPCS: 84153

== ENCOUNTER → 2021-12-05 00:38 | Outpatient (CLI) | payer MEDICARE, SELFPAY ==
--- NOTE | 2021-12-05 07:30 | DI.US_ITS ---
APPROVED REPORT EXAM: Comprehensive 2D, Doppler, and color-flow Echocardiogram Patient Location: Out-Patient [employer] Labourer: Nelia Larson RDCS (AE) Indications: PAF, HTN, Ascending aorta dilation Other Information Study Quality: Adequate Conclusion Normal left ventricular wall thickness and chamber size. Estimated ejection fraction is 55 to 60%. Wall motion is normal Normal right ventricular size and systolic function Left atrium is moderately dilated. The right atrium is mildly dilated Trileaflet aortic valve with trace regurgitation Mild mitral annular calcification, moderate mitral regurgitation Normal tricuspid valve with mild regurgitation. Estimated right ventricular systolic pressure is 31 mmHg Normal pulmonic valve with mild to moderate regurgitation Dilated ascending aorta measuring 4.5 cm Compared to an echocardiogram from November 2020, there is no significant interval change Wall motion Left Ventricle The left ventricle is normal size. The left ventricular systolic function is normal. The left ventric ular ejection fraction is within the normal range. There is normal left ventricular wall thickness. T here is normal LV segmental wall motion. There is no ventricular septal defect visualized. LVEF is >5 8%. Right Ventricle The right ventricle is normal size. The right ventricular systolic function is normal. The RVSP is 31 .0 mmHg. Atria Left atrium is moderately dilated. Right atrium is mildly dilated. The interatrial septum is intact w ith no evidence for an atrial septal defect. Aortic Valve The aortic valve is normal in structure. Aortic valve is trileaflet. There is no aortic valvular sten osis. Trace aortic regurgitation. Mitral Valve Mild mitral annular calcification. No evidence of mitral valve stenosis. Moderate mitral regurgitatio n. Tricuspid Valve The tricuspid valve is normal in structure. There is no tricuspid valve stenosis. Mild tricuspid regu rgitation. Pulmonic Valve The pulmonary valve is normal in structure. There is no pulmonic valvular stenosis. Mild to moderate pulmonic regurgitation. Great Vessels The aortic root is normal in size. The ascending aorta is severely dilated. Aortic arch is not well v isualized. IVC is normal in size and collapses >50% with inspiration. Pericardium There is no pericardial effusion. 2D Dimensions IVSD d PLAX 1.11 cm M: 0.6-1.2 LV Vol A2C d MOD 162.9 mL LVPW d PLAX 1.17 cm M: 0.6 - 1.2 LV Vol A4C d MOD 141.6 mL LVID d PLAX 5.41 cm M: 4.2 - 5.8 LA vol/ BSA A2C s A-L 44.7 mL/m2 LVDs 3.75 cm M: 2.5 - 4.0 LA vol/ BSA A4C s A-L 42.4 mL/m2 Ao Root d 3.57 cm M: 3.1 - 3.7 LA Vol/ BSA Biplane s A-L 44.6 mL/m2 RA Area A4C 21.58 cm2 LA Area A4C s MOD 27.04 cm2 RA Vol/ BSA A4C s A-L 28.3 mL/m2 LA Area A2C s MOD 27.12 cm2 Ao Asc Diam d 4.50 cm M: 2.6 - 3.4 LV EF A4C MOD 58.4 % LV EF Teichholz 56.9 % LV EF A2C MOD 58.0 % LVEF (Dang's) 56.60 % M: 52 - 72 LV EF Biplane MOD 56.6 % LV Volume 110.50 mL M: 62 - 150 SV 86.49 mL LV Volume Index 49.33 mL/m2 M: 34 - 74 SV Index 38.60 mL/m2 LV Vol Biplane MOD 152.8 mL FS 30.10 % M-Mode TAPSE 3.22 cm (M/F) >1.7 LV Diastology MV E' medial 0.101 (>0.07 m/s) E/A Ratio 1.1 LV E/e MED 7.25 (<14) MV E Vmax 0.74 (0.4-1.3 m/s) MV E' lateral 0.115 (>0.1 m/s) MV A Vmax 0.65 (0.4-1.3 m/s) LV E/e LAT 6.40 (<14) MV E/A Ratio 1.13 MV E/E' medial 7.26 MV E/E' lateral 6.41 Aortic Valve LVOT Area 3.70 cm2 AoV Area Vmax 3.17 cm2 LVOT Vmax 1.13 m/s AoV Area/ BSA (Vmax) 1.41 cm2/m2 LVOT Mean Gil. 0.74 m/s EDWARD Mean Gil. 3.00 cm2 LVOT Peak Grad 5.1 mmHg EDWARD Mean Gil. Index 1.34 cm2/m2 LVOT Mean Grad 2.6 mmHg LVOT VTI 0.270 m LVOT Diam s 2.15 cm AoV Vmax 1.32 m/s Velocity Ratio 0.85 AoV Mean Gil. 0.92 m/s AoV Peak Grad 6.9 mmHg LVOT SV 99.65 mL AoV Mean Grad 3.8 mmHg AoV VTI 0.311 m AoV Area VTI 3.21 cm2 AoV Area/ BSA (VTI) 1.43 cm/m2 Mitral Valve MV DT 269 (160-240 msec) MR Vmax 5.30 m/s MV PHT 78 msec MR VTI 1.931 m MV Area PHT 2.82 cm2 MR Peak Grad 112.5 mmHg MV VTI 0.375 m MR Mean Grad 84.8 mmHg MV VTI Annulus 0.374 m MV Area VTI 2.65 (4.0-6.0 cm2) Pulmonary Valve PV Vmax 1.11 (0.5-1.5 m/s) RVOT Peak Gr. 2.79 mmHg PV Peak Grad 4.9 mmHg RVOT Mean Gr. 1.35 mmHg PV Mean Grad 2.7 mmHg RVOT VTI 0.202 m PV VTI 0.247 m RVOT Vmax 0.84 m/s Tricuspid Valve TR Peak Grad 28.0 mmHg TR Vmax 2.65 m/s RA Pressure 3.00 mmHg RVSP (TR) 31.0 mmHg
== END ==
PROVIDERS: PCP Family Medicine; Visit Provider Internal Medicine Cardiovascular Disease
DX: I10 Essential (primary) hypertension (principal); I77.810 Thoracic aortic ectasia
CPT/HCPCS: 93306

== ENCOUNTER 2021-12-12 13:32 | Outpatient (CLI) | payer MEDICARE, SELFPAY ==
--- NOTE | 2021-12-12 13:30 | RT.EKG_ITS ---
APPROVED REPORT Exam: Resting ECG Reason for Exam: pt on flecainide Patient Location: O HR:59 bpm ECG Measurements Heart Rate 59 AXIS DE 207 P 9 QRSd 106 QRS -12 QT 492 T 45 QTc 488 Conclusion Sinus rhythm...normal P axis, V-rate 50- 99 Baseline wander in lead(s) V3
== END 2021-12-12 13:33 | disposition home or self-care (01) ==
LOC: DI.CARD 13:41
PROVIDERS: PCP Family Medicine; Visit Provider Internal Medicine Cardiovascular Disease
DX: I48.0 Paroxysmal atrial fibrillation (principal); Z51.81 Encounter for therapeutic drug level monitoring
CPT/HCPCS: 93010

== ENCOUNTER → 2021-12-12 13:32 | Outpatient (BNVA) | payer MEDICARE, SELFPAY | PROVIDERS: PCP Family Medicine; Referring Provider Family Medicine; Visit Provider Internal Medicine Cardiovascular Disease | DX: I71.2 Thoracic aortic aneurysm, without rupture (principal); I10 Essential (primary) hypertension; I48.0 Paroxysmal atrial fibrillation | CPT/HCPCS: 93005; 99214; 99213 ==

== ENCOUNTER 2022-01-09 12:06 | Outpatient (CLI) | payer MEDICARE, SELFPAY ==
[2022-01-09 12:35] VITALS: BP 183/89; PULSE 57; RESP 14; TEMP 36.6; O2SAT 96
[2022-01-09 13:40] VITALS: BP 170/77; PULSE 57; RESP 16; TEMP 36.9; O2SAT 98
== END 2022-01-09 12:07 | disposition home or self-care (01) ==
LOC: INF 12:11
PROVIDERS: PCP Family Medicine; Visit Provider Family Medicine
DX: U07.1 COVID-19 (principal)
CPT/HCPCS: 96374; Q0222

== ENCOUNTER → 2022-02-12 01:39 | Outpatient (CLI) | payer MEDICARE, SELFPAY ==
--- NOTE | 2022-02-12 07:00 | DI.NM_ITS ---
APPROVED REPORT Exam: Pharmacologic Patient Location: In-Patient Room/Bed: Stress Nurse: Karen Merchant RN Ordering Provider:LANETTE GILLIS, Contact Number: [phone] BMI: 27.60 Baseline Rhythm: Sinus Bradycardia Comment: 1DHB, prolonged QT interval Indications: On Flecainide, paroxysmal atrial fibrillation Medical History Medical History: Flecainide tx, paroxysmal atrial fibrillation, AAA, hypertension, moderate mitral re gurgitation, sleep apnea Cardiac Medications: Flecainide, diltiazem, hydrochlorothiazide, pravastatin, sildenafil, potassium c itrate Allergies: NKDA Cardiac Risk Factors: Hypertension, family hx Previous Cardiac Procedures: None Pretest Chest Pain Characteristics: None Exercise History: Physically active Physical Disabilities: None Lung Sounds: Clear to auscultation Heart Sounds: Regular, distant Stress Test Details Test: Exercise stress converted to pharmacologic stress due to failure to obtain a diagnostic stress test. Reason for pharmacologic stress test: changed from exercise stress test due to inability to reach t arget heart rate. Nuclear Acquisition: Rest Tc-99m/Stress Tc-99m 1 day Rest Isotope: Tc-99m Sestamibi. Dose: 10.0 Date: 02/12/2022 Injection Time: 0930 Stress Isotope: Tc-99m Sestamibi. Dose: 32.5 Date: 02/12/2022 Injection Time: 1226 HR Resting HR Supine: 56 bpm Max Heart Rate (APMHR): 143.740134 bpm Resting HR Standin bpm Target HR (85% APMHR): 121.511207 bpm Max HR Achieved: 94 bpm % of APMHR: 65.73 Recovery HR: 67 bpm Comment: Diltiazem not held prior to testing BP Resting BP Supine: 170/92 mmHg Resting BP Standin/88 mmHg Max BP: 230/72 mmHg Recovery BP: 170/78 mmHg BP response to stress: Abnormal hypertensive response to stress. Comment: Reports home BPs in 160s ECG Resting ECG: Sinus Bradycardia, 1DHB Ectopy: None Comment: Prolonged QT interval Stress ECG: Sinus Rhythm, 1DHB ST Change: No significant ST segment changes noted, Nondiagnostic low heart rate Recovery ECG: Sinus Rhythm, 1DHB Recovery ST Change: No significant ST segment changes noted, Nondiagnostic low heart rate Clinical Stress Symptoms: General Fatigue Exercise capacity: 7.05 METs Angina Score: None Rate Pressure Product: 56002 Stress ECG Conclusion 1. Resting electrocardiogram showed nondiagnostic ST-T abnormalities, IVCD 2. Patient underwent testing using combination of exercise and pharmacologic stress with regadenoson 3. Hypertensive blood pressure response to exercise 4. Peak heart rate achieved was 65% predicted for age 5. Electrocardiographic portion of the test was nondiagnostic due to inadequate heart rate 6. See MPI report Stress Test Summary STAGE Time (mins) Speed (mph) Grade (%) HR BP SYMPTOMS METS Supine 56 170/92 Standing 54 172/88 1 3 1.7 10 76 162/72 4.6 1 min post Lexiscan injection 88 172/72 3 min post Lexiscan injection 85 230/72 6 min post Lexiscan injection 69 210/78 9 min post Lexiscan injection 69 184/82 12 min post Lexiscan injection 67 172/78 Exercise stress converted to pharmacologic stress due to failure to obtain a diagnostic stress test. Patient ambulated at 2.5mph and 12% from second stage of Gee protocol and treadmill settings decrea sed gradually to 1.5 mph and 0% grade per pt tolerance during Regadenoson administration. Pt tolerate d testing well. MPI Conclusion Normal myocardial perfusion without evidence of ischemia or prior infarction EF 52%, normal wall motion Radiologist Interpretation Radiologist Interpretation by: Ramo Lujan MD Interpretation Date/Time: 02/13/2022 17:10:21
[2022-02-12] MEDS: Regadenoson 0.4 MG/5 ML SYR IVP (12:54)
== END ==
PROVIDERS: PCP Family Medicine; Visit Provider Internal Medicine Cardiovascular Disease
DX: I48.0 Paroxysmal atrial fibrillation (principal)
CPT/HCPCS: 78452; 93016; 93018; 93017; J2785

== ENCOUNTER 2022-04-10 18:08 | Outpatient (REF) | payer MEDICARE, SELFPAY ==
[2022-04-10 16:47] LABS: Abs Immature Grans 0.01 10^3/uL (0.0-0.06); Absolute Basophil Count 0.06 10^3/uL (0.0-0.2); Absolute Eosinophil Count 0.22 10^3/uL (0.0-0.7); Absolute Lymphocyte Count 1.79 10^3/uL (1.2-3.4); Absolute Monocyte Count 0.52 10^3/uL (0.1-0.8); Absolute Neutrophil Count 2.69 10^3/uL (1.2-6.7); Basophils % 1.1; Eosinophils % 4.2; HCT 37.4 % (40.0-50.0); HGB 13.1 g/dL (13.5-17.5); Immature Grans % 0.2; Lymphocytes % 33.8; MCH 32.3 pg (27.0-33.0); MCV 92 fL (80-95); MPV 10.6 fL (8.0-11.0); Monocytes % 9.8; Neutrophils % 50.9; Platelet Count 181 10^3/uL (130-400); RBC 4.05 10^6/uL (4.36-5.78); RDW 12.1 % (11.8-14.1); RDW-SD 41.1 fL; WBC 5.29 10^3/uL (4.4-10.8)
[2022-04-10 17:19] LABS: ALT 39 U/L (16-63); AST 30 U/L (15-37); Albumin 3.7 g/dL (3.4-5.0); Alkaline Phosphatase 120 U/L (46-116); Anion Gap 10.6 mmol/L (3-11); BUN 19 mg/dL (7-18); Bilirubin, Total 0.5 mg/dL (0.2-1.0); CO2 26.4 mmol/L (21.0-32.0); CREATININE 1.2 mg/dL (0.70-1.30); Calcium 8.9 mg/dL (8.5-10.1); Chloride 103 mmol/L (98-107); Estimated GFR 58.71 (mL/min/1.73m2); Glucose 111 mg/dL (74-106); Potassium 3.9 mmol/L (3.5-5.1); Sodium 140 mmol/L (136-145); Total Protein 8.2 g/dL (6.4-8.2)
[2022-04-10 18:03] LABS: Vitamin B12 319 pg/mL (193-986)
== END 2022-04-10 18:09 | disposition home or self-care (01) ==
LOC: NCHCN 18:08
PROVIDERS: PCP Family Medicine; Visit Provider Family Medicine
DX: E53.8 Deficiency of other specified B group vitamins (principal); D64.9 Anemia, unspecified; D72.819 Decreased white blood cell count, unspecified; K50.90 Crohn's disease, unspecified, without complications; I10 Essential (primary) hypertension; F10.99 Alcohol use, unspecified with unspecified alcohol-induced disorder; I48.0 Paroxysmal atrial fibrillation
CPT/HCPCS: 80053; 82607; 83735; 85025

== ENCOUNTER → 2022-05-02 14:01 | Outpatient (BNVA) | payer MEDICARE, SELFPAY | PROVIDERS: PCP Family Medicine; Referring Provider Family Medicine; Visit Provider Surgery | DX: K46.9 Unspecified abdominal hernia without obstruction or gangrene (principal) | CPT/HCPCS: 99213 ==

== ENCOUNTER 2022-06-08 06:19 | Day surgery (SDC) | payer MEDICARE, SELFPAY ==
[2022-06-01 10:55] VITALS: BP 128/79; PULSE 54; RESP 15; TEMP 36; O2SAT 97
--- NOTE | 2022-06-07 20:11 | PDOC.DSDIS_ITS ---
Discharge Plan Disposition Patient Disposition: HOME Condition: Good Discharge Details Reason For Visit: Left inguinal herniorrhaphy Attending Provider: Kade Lujan Primary Care Provider: Nathan Diaz Home Meds and New Rx's Prescriptions: New tramadol 50 mg tablet 50 mg PO Q8H PRN (Reason: pain) Qty: 9 0RF Rx Instructions: Take 1 tablet as needed up to every 8 hours for severe pain. This medication can be addictive, and that should be used with care. Continued dutasteride [Avodart] 0.5 mg capsule 0.5 mg PO .weekly Qty: 30 4RF hydrochlorothiazide 12.5 mg capsule 12.5 mg PO DAILY pravastatin [Pravachol] 20 mg tablet 20 mg PO QHS escitalopram oxalate [Lexapro] 10 mg tablet 10 mg PO DAILY flecainide 50 mg tablet 50 mg PO BID cyanocobalamin (vitamin B-12) 1,000 mcg capsule 1,000 mcg PO QMONTH cholestyramine (with sugar) [Questran] 4 gram powder 4 gm PO TID zolpidem [Ambien] 5 mg tablet 5 mg PO QHS PRN sildenafil [Viagra] 50 mg tablet 50 mg PO PRN PRN Rx Instructions: administer 30 minutes to 4 hours before activity diltiazem HCl [Tiazac] 180 mg capsule,extended release 24 hr 180 mg PO DAILY Qty: 90 3RF diltiazem HCl 30 mg tablet 30 mg PO TID Qty: 90 3RF potassium citrate 10 mEq (1,080 mg) tablet extended release See Rx Instructions .ROUTE .COMPLEX Qty: 200 3RF Dose Instruction: TAKE 1 TABLET BY MOUTH TWICE DAILY FOR STONE PREVENTION Rx Instructions: TAKE 1 TABLET BY MOUTH TWICE DAILY FOR STONE PREVENTION Held Eliquis 5 mg tablet 5 mg PO BID Hold Instructions: Resume on 06/09/22. Label Comments: pt. states he has not taken since before last procedure No Action (DME) pH test Strip See Rx Instructions .ROUTE .MEDSUPPLY Qty: 100 12RF Rx Instructions: As directed Discharge Instructions Instructions: Inguinal Hernia Repair (GEN) Additional Instructions: 1. Resume all of your medications. 2. Okay to use tylenol and ibuprofen over the counter as needed. 3. Use tramadol as needed for pain. 4. It is fine to use hot or cold packs over the area of the incision for your convenience. 5. Tdwp-yha-lbybjjk topical pain patches like lidocaine and capsaicin patches are fine to use. 6. Leave bandage in place for 24 hours, then remove. 7. Shower with warm soapy water. Pat dry. Use a bandaid if needed to protect your clothing. 8. No soaking or tub baths until I see you in the office. 9. No heavy lifting until I see you in the office. 10.Call the office (or go directly to the emergency room after hours) if you notice any of the following: Develop chills (warm to touch), or if you have a thermometer and your temperature is above 101 Difficulty breathing or difficultly swallowing Persistent vomiting Any bleeding ? exceeding one tablespoon 11. Call your physician if the site where your intravenous was started becomes red, swollen, painful, and warm to touch. Referrals: Kade Lujan MD [ [facility] STAFF PHYSICIAN] - (10-14 days for routine follow up) Activity:: no lifting Remove Dressings/Wound Care:: 24 hours Shower/Bathe:: 24 hours Diet:: As Tolerated Discharge Orders Discharge Orders: Discharge Order (Routine); Ordered 06/07/22 Ordered By: Kade Lujan DS: Diagnosis Discharge Diagnosis (1) Left inguinal hernia: Status: Acute Asessment and Plan: Follow up in my office 10-14 days for routine exam
--- NOTE | 2022-06-07 20:15 | W.PM.HP.N ---
Assessment and Plan Assessment and plan (1) Left inguinal hernia: Status: Acute Assessment and plan: Left-sided inguinal herniorrhaphy with mesh today. History of Present Illness History of Present Illness Chief Complaint: Left inguinal hernia PFSH All Active Problems Hypertension (Chronic) Vitamin B 12 deficiency (Acute) Left inguinal hernia (Acute) Crohn's disease (Chronic) Alcohol use (Acute) BRITTANY (obstructive sleep apnea) (Chronic) PAF (paroxysmal atrial fibrillation) (Acute) Following up with Dr. Bauer in 3 weeks per pt. 10/16/19 Renal calculus, right (Acute) Ascending aortic aneurysm (Acute) Gross hematuria (Acute) Hydronephrosis, right (Acute) History of resection of terminal ileum (Acute) PAF (paroxysmal atrial fibrillation) (Acute) Sensorineural hearing loss of both ears (Acute) Therapeutic drug monitoring (Acute) Basal cell carcinoma (Acute) face Medical History Actinic keratitis Anemia Aortic root dilation Blurred vision Cataract Chronic insomnia Erectile dysfunction Hearing impairment History of colon polyps Inguinal hernia Insomnia Leukopenia Mitral regurgitation Nephrolithiasis Sleep apnea Subcutaneous mass of left forearm Trochanteric bursitis Surgical History (Updated 06/08/22 @ 06:30 by Jeana Martinez RN) H/O knee surgery bilat History of colectomy Hx of colonoscopy (~11/11/20) Hx of cystoscopy Previous back surgery remove L4 Status post laser lithotripsy of ureteral calculus Social History Smoking/Tobacco Use Status: Former Tobacco Use Quit Date: 08/19/1959 Tobacco: How many years used: 5 Smoking risk assessment performed?: Yes Alcohol Intake: current Alcohol Intake frequency: 3 or more drinks per day Alcohol type: wine Drug use: Never Substance use type: does not use Details: alcohol: t-1, two glasses of wine What type of physical activity do you participate in: swimming Duration: 15-30 minutes/day Frequency: 5-6 times per week Do you feel safe at home: Yes Do you feel safe in your relationship?: Yes Meds Allergies and Home Medications Allergies Allergy/AdvReac Type Severity Reaction Status Date / Time No Known Allergies Allergy Verified 06/07/22 14:29 Home Medications Medication Instructions Recorded Confirmed Type apixaban 5 mg tablet (Eliquis) 5 mg PO BID 06/29/19 06/08/22 History cholestyramine (with sugar) 4 gram 4 gm PO TID 06/29/19 06/08/22 History oral powder (Questran) cyanocobalamin (vitamin B-12) 1,000 mcg PO QMONTH 06/29/19 06/08/22 History 1,000 mcg capsule escitalopram oxalate 10 mg tablet 10 mg PO DAILY 06/29/19 06/08/22 History (Lexapro) flecainide 50 mg tablet 50 mg PO BID 06/29/19 06/08/22 History hydrochlorothiazide 12.5 mg capsule 12.5 mg PO DAILY 06/29/19 06/08/22 History pravastatin 20 mg tablet 20 mg PO QHS 06/29/19 06/08/22 History (Pravachol) zolpidem 5 mg tablet (Ambien) 5 mg PO QHS PRN 06/29/19 06/08/22 History pH test #100 ea 11/13/19 06/07/22 Rx sildenafil 50 mg tablet (Viagra) 50 mg PO PRN PRN 07/27/20 06/08/22 History diltiazem HCl 180 mg capsule,24 180 mg PO DAILY #90 caps 11/29/20 06/08/22 Rx hr,extended release (Tiazac) diltiazem HCl 30 mg tablet 30 mg PO TID As needed for 12/12/20 06/08/22 Rx increased palpitations #90 tabs dutasteride 0.5 mg capsule 0.5 mg PO .weekly #30 caps 10/20/21 06/08/22 Rx (Avodart) potassium citrate 10 mEq (1,080 See Rx Instructions .Route 05/04/22 06/08/22 Rx mg) tablet,extended release .COMPLEX #200 tabs Exam Const General: cooperative, healthy appearing and comfortable Orientation: awake and oriented x3 Eyes General: appearance normal, both eyes and all related structures Conjunctivae: conjunctivae normal Sclera: sclerae normal Resp Effort & Inspection: normal respiratory effort and able to speak in complete sentences Auscultation: clear to auscultation bilaterally Cardio Jugular venous pressure: no JVD Rate: regular rate Rhythm: regular rhythm Heart Sounds: S1 normal and S2 normal GI Inspection: non-distended Palpation: soft, no guarding and nontender Auscultation: normal bowel sounds Skin General skin exam: normal turgor Neuro General: patient alert, patient awake and patient oriented x3 Cognition: normal cognition Extrem Right lower extremity: no edema Left lower extremity: no edema
--- NOTE | 2022-06-07 20:16 | W.PM.OP ---
Operative Note Operative Note DATE OF PROCEDURE: 06/08/22 PRE-OP DIAGNOSIS: Left inguinal hernia POST-OP DIAGNOSIS: same PROCEDURE: Open left inguinal herniorrhaphy with mesh plug and patch SURGEON: Kade Lujan [employer]MENT[employer]ET[employer] ENGINEER: Abiel Guillen ANESTHESIA TYPE: Local By Surgeon, General LMA/ETT and Primary Nerve Block Refer to Anesthesia Record ESTIMATED BLOOD LOSS: 50 PATHOLOGY: none sent COMPLICATIONS: None Patient was transported to: PACU Patient's condition: stable Implants: Bard large plug and patch Indications: Nathan is a 76-year-old male with a bulge and discomfort in the left groin consistent with a left inguinal hernia. Procedure Description: I began by confirming the correct site with the patient. Next, after induction of general anesthesia, a tap block was performed under ultrasound guidance by their service. Surgical site was then prepped and draped in the usual fashion. I began by making an oblique incision over the left inguinal region. I dissected down through the skin to the deep fascia. Next, I incised the fascia along the length of the inguinal canal to the external ring. I then carefully identified the ilioinguinal nerve and elevated it from the operative field. Once this was complete, I bluntly dissected the shelving edge of the inguinal ligament down towards the pubic tubercle. Here, I encircled all cord structures with a Stevenson drain. Next, I began dissecting the specific cord structures. Great care was taken to spare the vas deferens and the blood supply to the testicle. Next, I isolated the hernia sac from the other inguinal structures. I reduced it back to its normal anatomic position. I then used a large mesh plug to obliterate the defect at the internal ring. I fixed in place with interrupted Prolene stitches. Next, I buttressed the posterior floor of the inguinal canal with a large mesh patch. I started by fixing it to the pubic tubercle. Next, I used Prolene sutures to affix it to the shelving edge of the inguinal ligament and the conjoined tendon. Laterally I tacked it to the transversalis fascia and reconstructed an internal ring without any strain on the cord structures. Once this was complete, I irrigated the surgical field. It appeared hemostatic. I then closed the anterior portion of the fascia to reconstruct the front wall of the inguinal canal. I did this with interrupted Vicryl stitches. Once again, I irrigated the surgical field and inspected for hemostasis. Finally, I approximated the superficial fascia and the deep layers of the skin with absorbable suture. Skin was closed with running subcuticular stitches. Bandages were applied, the patient was awakened and transferred to the recovery unit.
[2022-06-08] VITALS (9 sets, daily range): BP systolic 119–148; BP diastolic 61–77; PULSE 50–59; RESP 12–23; TEMP 36–36.8; O2SAT 94–98; BMI 28.2
--- NOTE | 2022-06-08 06:21 | W.ANESPRE ---
General Info Date of Service Date Performed: 06/08/22 Height: 6 ft 2 in Weight: 99.79 kg Body Mass Index (BMI): 28.2 Surgical Procedure: Operation Date: 06/08/22 07:40 Proposed Procedure Side Surgeon p Herniorrhaphy Inguinal w/Mesh Left Kade Lujan MD Meds Allergies and Home Medications Allergies Allergy/AdvReac Type Severity Reaction Status Date / Time No Known Allergies Allergy Verified 06/07/22 14:29 Home Medication Medication Instructions Recorded apixaban 5 mg tablet (Eliquis) 5 mg PO BID 06/29/19 cholestyramine (with sugar) 4 gram 4 gm PO TID 06/29/19 oral powder (Questran) cyanocobalamin (vitamin B-12) 1,000 mcg PO QMONTH 06/29/19 1,000 mcg capsule escitalopram oxalate 10 mg tablet 10 mg PO DAILY 06/29/19 (Lexapro) flecainide 50 mg tablet 50 mg PO BID 06/29/19 hydrochlorothiazide 12.5 mg capsule 12.5 mg PO DAILY 06/29/19 pravastatin 20 mg tablet 20 mg PO QHS 06/29/19 (Pravachol) zolpidem 5 mg tablet (Ambien) 5 mg PO QHS PRN 06/29/19 pH test #100 ea 11/13/19 sildenafil 50 mg tablet (Viagra) 50 mg PO PRN PRN 07/27/20 diltiazem HCl 180 mg capsule,24 180 mg PO DAILY #90 caps 11/29/20 hr,extended release (Tiazac) diltiazem HCl 30 mg tablet 30 mg PO TID As needed for 12/12/20 increased palpitations #90 tabs dutasteride 0.5 mg capsule 0.5 mg PO .weekly #30 caps 10/20/21 (Avodart) potassium citrate 10 mEq (1,080 See Rx Instructions .Route 05/04/22 mg) tablet,extended release .COMPLEX #200 tabs Current Visit Medications: Current Medications Generic Name Dose Route Start Last Admin Trade Name Freq PRN Reason Stop Dose Admin Acetaminophen 1,000 mg 06/08/22 06:00 Acetaminophen 500 Mg Tab PO 06/08/22 23:59 PREOP COREY Celecoxib 200 mg 06/08/22 06:00 Celecoxib 200 Mg Cap PO 06/08/22 23:59 PREOP COREY Gabapentin 600 mg 06/08/22 06:00 Gabapentin 300 Mg Cap PO 06/08/22 23:59 PREOP COREY Ringer's Solution 1,000 mls @ 80 mls/hr 06/08/22 06:00 IV 06/08/22 23:59 INFUSION COREY Cefazolin Sodium/Dextrose 2 gm in 50 mls @ 100 mls/hr 06/08/22 06:00 Ancef Duplex IVPB 06/08/22 23:59 PREOP COREY IV Miscellaneous Supplies 1 each 06/08/22 06:00 Iv Access IV 06/08/22 23:59 DIRECTED COREY Sodium Chloride 0 ml 06/08/22 06:00 Normal Saline Flush 10 Ml Syr IV 06/08/22 23:59 PRN PRN Sodium Chloride 0 ml 06/08/22 06:00 Normal Saline 10 Ml Vial IJ 06/08/22 23:59 DIRECTED PRN Sterile Water 0 ml 06/08/22 06:00 Water,Injection,Sterile 10 Ml Vial IJ 06/08/22 23:59 DIRECTED PRN PFSH Active Problems Active Problems: Problem Status Onset Code Basal cell carcinoma C44.91 Therapeutic drug monitoring Z51.81 Sensorineural hearing loss of both ears H90.3 Ascending aortic aneurysm I71.2 Hydronephrosis, right N13.30 History of resection of terminal ileum Z98.890, Z90.49 PAF (paroxysmal atrial fibrillation) I48.0 Vitamin B 12 deficiency E53.8 BRITTANY (obstructive sleep apnea) G47.33 Left inguinal hernia K40.90 Alcohol use Z72.89 Crohn's disease K50.90 Gross hematuria R31.0 Hypertension I10 PAF (paroxysmal atrial fibrillation) I48.0 Renal calculus, right N20.0 Medical History Medical History Actinic keratitis Anemia Aortic root dilation Blurred vision Cataract Chronic insomnia Erectile dysfunction Hearing impairment History of colon polyps Inguinal hernia Insomnia Leukopenia Mitral regurgitation Nephrolithiasis Sleep apnea Subcutaneous mass of left forearm Trochanteric bursitis Surgical History Surgical History (Updated 06/08/22 @ 06:30 by Jeana Martinez RN) H/O knee surgery bilat History of colectomy Hx of colonoscopy (~11/11/20) Hx of cystoscopy Previous back surgery remove L4 Status post laser lithotripsy of ureteral calculus Tobacco Smoking/Tobacco Use Status: Former Tobacco Use Alcohol Alcohol Intake: current Alcohol intake frequency: 3 or more drinks per day Alcohol type: wine Substance Use Substance use: Never Substance use type: does not use Details: alcohol: t-1, two glasses of wine Vital Signs and Lab Results Lab Results Blood Type / Crossmatch: No Data to Display Complete Blood Count: No Data to Display Complete Metabolic Panel: No Data to Display Liver Function Panel: No Data to Display Coagulation Panel: No Data to Display Cardiac Panel: No Data to Display Arterial Blood Gas: No Data to Display Venous Blood Gas: No Data to Display Pancreas Panel: No Data to Display Thyroid Panel: No Data to Display Infectious Disease: No Data to Display Blood Cultures: No Data to Display Toxicology Panel: No Data to Display Imaging and Studies Imaging and Studies Study information below may be from another EMR and interpreted by another provider. Please see original notes in EMR for more complete details. EKG Summary: 12/12/21 Conclusion Sinus rhythm...normal P axis, V-rate 50- 99 Baseline wander in lead(s) V3 Stress Test Summary: MPI Conclusion Normal myocardial perfusion without evidence of ischemia or prior infarction EF 52%, normal wall motion MPI Conclusion Normal myocardial perfusion without evidence of ischemia or prior infarction EF 52%, normal wall motion Echocardiogram Summary: Conclusion Normal left ventricular wall thickness and chamber size. Estimated ejection fraction is 55 to 60%. Wall motion is normal Normal right ventricular size and systolic function Left atrium is moderately dilated. The right atrium is mildly dilated Trileaflet aortic valve with trace regurgitation Mild mitral annular calcification, moderate mitral regurgitation Normal tricuspid valve with mild regurgitation. Estimated right ventricular systolic pressure is 31 mmHg Normal pulmonic valve with mild to moderate regurgitation Dilated ascending aorta measuring 4.5 cm Compared to an echocardiogram from November 2020, there is no significant interval change Anesthesia Assessment and Plan Anesthesia History Personal History: No History of Anesthesia Complications Family History: No Family History of Anesthesia Complications Exercise Tolerance Exercise Tolerance: Metabolic Equivalents>4 Pertinent Negatives Pertinent Negatives: No Symptoms of GERD Cardiac & Pulmonary Exam Cardiac Exam: Normal S1/S2 Heart Sounds Pulmonary Exam: Clear Bilateral Breath Sounds Implantable Cardiac Device Does patient have a Pacemaker or an ICD?: No Airway Exam Known Difficult Airway: No Mallampati Class: 3 Mouth Opening: Normal (> 3cm) Thyromental Distance: Greater than 3 cm Neck Range of Motion: Full ROM Neck Circumference: Normal Teeth Condition: Normal Dentition ASA Classification ASA Score: ASA 3 Emergency Case?: No NPO Status NPO Status: NPO Clears >2 hours, Solids >8 hours Anesthesia Plan Resuscitation Status: Full Code Anesthesia Technique: General Anesthesia Airway Planned: LMA Pain Management: Surgeon and patient request nerve block Monitors Used: Standard Monitors
[2022-06-08] MEDS: Gabapentin 300 MG CAP 600 MG PO (06:47)
[2022-06-08] MEDS: Acetaminophen 500 MG TAB 1000 MG PO (06:48)
[2022-06-08] MEDS: Celecoxib 200 MG CAP PO (06:48)
[2022-06-08] MEDS: Lactated Ringers 1,000 ML 80 ML IV (06:59)
[2022-06-08] MEDS: ceFAZolin 2 GM/50 ML BAG IVPB (07:54)
--- NOTE | 2022-06-08 08:24 | W.ANESNERVE ---
Nerve Block Single Injection Procedure Date and Time Date Performed: 06/08/22 Procedure Start: 07:52 Location Where Procedure Performed Procedure Location: Operating Room Procedure Stop: 07:58 Reason Performed: Postoperative Analgesia Requesting Provider: Kade Lujan Timeout Performed Timeout Performed: Yes Monitoring Used ECG, Blood Pressure, SpO2 and ETCO2 Sterility Sterility: Hand Hygiene, Surgical Cap, Surgical Mask, Sterile Gloves and Chlorhexidine Sedation Given During Procedure Sedation Given (Indicate Dose Given): No Sedation given Patient Mental Status Patient Mental Status: Performed under general anesthesia Nerve Block 1st Nerve Block: Laterality: Left Block Type: TAP Unilateral Needle / Catheter Used: 100mm SonoPlex II Local Anesthetic Bolus (Indicate Dose Given): Injected in 3-5ml increments after negative blood aspiration and Bupivacaine 0.25% Dose:: 20 ml Additives (Indicate Dose Given): Precedex Dose:: 100 mcg Ultrasound: Sterile probe cover and gel used Ultrasound Image Saved?: Yes Nerve Stimulator: Not Used Paresthesia: None Procedure Tolerated: No Complications and Patient tolerated well Procedure Outcome: Successful Performed By: Jamie Kenyon
[2022-06-08] MEDS: Bupivacaine 0.5% Pres-Free W/EPI 30 ML VIAL (09:00)
--- NOTE | 2022-06-08 16:31 | W.ANESPOSTOP ---
Postoperative Evaluation Date, Time and Location Date Performed: 06/08/22 Time Performed: 16:31 Patient Location: Day Surgery Unit Vital Signs Most Recent Imported Vital Signs: Most Recent Vital Signs Temp Pulse Resp BP Pulse Ox 36.1 C L 51 L 18 125/65 98 06/08/22 10:15 06/08/22 10:15 06/08/22 11:53 06/08/22 11:53 06/08/22 11:53 Pain Score Most Recent Pain Score: Most Recent Pain Score Pain Level 0 06/08/22 11:53 Assessment Mental Status: Awake (Alert & Oriented to Patient Baseline) Airway and Respiratory Function: Patent airway with normal (patient baseline) respiratory exam Cardiovascular Function: Hemodynamically Stable Hydration Status: Adequately Hydrated Nausea & Vomiting: No Nausea or Vomiting Pain: Pt. Denies Any Pain Peripheral Nerve Block: Patient did not receive a nerve block Postoperative Comments:: Seen earlier today, doing well. Discharged.
== END 2022-06-08 12:37 | disposition home or self-care (01) ==
PROVIDERS: PCP Family Medicine; Visit Provider Surgery
PROC: (CPT 49505; principal; 2022-06-08 07:30)
DX: K40.90 Unilateral inguinal hernia, without obstruction or gangrene, not specified as recurrent (principal); G47.33 Obstructive sleep apnea (adult) (pediatric); I48.0 Paroxysmal atrial fibrillation; Z79.01 Long term (current) use of anticoagulants
CPT/HCPCS: 49505; 76942; C1781; J0690; J1100; J2405; J2704

== ENCOUNTER → 2022-06-14 10:57 | Outpatient (BNVA) | payer MEDICARE, SELFPAY | PROVIDERS: PCP Family Medicine; Visit Provider Internal Medicine Cardiovascular Disease | DX: I48.0 Paroxysmal atrial fibrillation (principal); I77.810 Thoracic aortic ectasia; I10 Essential (primary) hypertension; Z51.81 Encounter for therapeutic drug level monitoring | CPT/HCPCS: 99214; 99213 ==

== ENCOUNTER → 2022-06-18 12:56 | Outpatient (BNVA) | payer MEDICARE, SELFPAY | PROVIDERS: PCP Family Medicine; Referring Provider Family Medicine; Visit Provider Surgery | DX: Z48.817 Encounter for surgical aftercare following surgery on the skin and subcutaneous tissue (principal) ==

== ENCOUNTER → 2022-06-26 14:23 | Outpatient (BNVA) | payer MEDICARE, SELFPAY | PROVIDERS: PCP Family Medicine; Referring Provider Family Medicine; Visit Provider Urology | DX: N20.0 Calculus of kidney (principal) | CPT/HCPCS: 81003; 99213 ==

== ENCOUNTER 2022-08-06 14:42 | Outpatient (REF) | payer MEDICARE, SELFPAY ==
[2022-08-06 14:42] LABS: Abs Immature Grans 0.01 10^3/uL (0.0-0.06); Absolute Basophil Count 0.05 10^3/uL (0.0-0.2); Absolute Eosinophil Count 0.04 10^3/uL (0.0-0.7); Absolute Lymphocyte Count 2.08 10^3/uL (1.2-3.4); Absolute Monocyte Count 0.95 10^3/uL (0.1-0.8); Absolute Neutrophil Count 5.46 10^3/uL (1.2-6.7); Basophils % 0.6; Eosinophils % 0.5; HCT 41.5 % (40.0-50.0); HGB 14.2 g/dL (13.5-17.5); Immature Grans % 0.1; Lymphocytes % 24.2; MCH 32.1 pg (27.0-33.0); MCHC 34.2 % (32.0-36.0); MCV 94 fL (80-95); MPV 10.6 fL (8.0-11.0); Monocytes % 11.1; Neutrophils % 63.5; Platelet Count 162 10^3/uL (130-400); RBC 4.42 10^6/uL (4.36-5.78); RDW-SD 41.7 fL; WBC 8.59 10^3/uL (4.4-10.8)
[2022-08-06 14:53] LABS: ALT 55 U/L (16-63); AST 41 U/L (15-37); Albumin 4.3 g/dL (3.4-5.0); Alkaline Phosphatase 104 U/L (46-116); Anion Gap 9.9 mmol/L (3-11); BUN 24 mg/dL (7-18); Bilirubin, Total 0.8 mg/dL (0.2-1.0); CO2 25.1 mmol/L (21.0-32.0); CREATININE 1.5 mg/dL (0.70-1.30); Calcium 9.2 mg/dL (8.5-10.1); Chloride 100 mmol/L (98-107); Estimated GFR 47.65 (mL/min/1.73m2); Glucose 110 mg/dL (74-106); Potassium 4.1 mmol/L (3.5-5.1); Sodium 135 mmol/L (136-145); Total Protein 8.7 g/dL (6.4-8.2)
== END 2022-08-06 14:43 | disposition home or self-care (01) ==
LOC: LBN 14:42
PROVIDERS: PCP Family Medicine; Visit Provider Nurse Practitioner Family
DX: R10.31 Right lower quadrant pain (principal); N20.0 Calculus of kidney; R31.9 Hematuria, unspecified
CPT/HCPCS: 80053; 83735; 85025; 87086

== ENCOUNTER → 2022-08-07 00:50 | Outpatient (CLI) | payer MEDICARE, SELFPAY ==
[2022-08-07] MEDS: Normal Saline - Diluent 50 ML VIAL IJ (08:48)
[2022-08-07] MEDS: Omnipaque 350 MG/ML 500 ML BTL-Imaging package IJ (08:49)
--- NOTE | 2022-08-07 09:05 | DI.CT_ITS ---
Exam(s) CT ABDOMEN PELVIS WO/W EXAM: CT ABDOMEN PELVIS WO/W CLINICAL HISTORY: RLQ ABD PAIN,R10.31,HEMATURIA,R31.9,NEPHROLITHIASIS,N20.0,CROHNS. TECHNIQUE: Imaging Protocol: Axial computed tomography images with coronal and sagittal reformatted images were created and reviewed CONTRAST MATERIAL: Intravenous: Omnipaque-350 100cc Oral: None COMPARISON: CT CT ABDOMEN PELVIS WO/W from 06/23/2019 FINDINGS: VISUALIZED LUNG BASES: No nodules nor pleural effusions evident. ABDOMEN: There is no ascites. There is evidence of previous surgery. Generalized mesenteric streaking noted, slightly more so than on the prior study. There are no distinct abnormal fluid collections in the a bdomen and pelvis. No evidence of bowel obstruction at this time. LIVER: There are multiple small focal hepatic hypodensities again noted. These are unchanged in size from 2019. These have the appearance of benign cysts or hemangiomas. There are no new ominous foca l hepatic lesions identified. GALLBLADDER/BILIARY: No obvious gallbladder calculi.. CBD is not dilated. PANCREAS: No evidence of pancreatic mass nor dilatation of the pancreatic duct. SPLEEN: Spleen is not enlarged. No obvious intrasplenic lesions. Splenic and portal veins are paten t. ADRENALS: There are no significant adrenal masses. KIDNEYS:There are 2 adjacent calculi at the midpole level of the right kidney. One measures 3 millim eters and the other measures approximately 1 millimeter. There are no calculi in left kidney. No so lid masses in either kidney. Small 8 millimeter exophytic cyst is seen off the lateral cortex of the left kidney. No hydronephrosis. Ureters are not dilated. ABDOMINAL AORTA: Abdominal aorta is not enlarged. Retroaortic left renal vein is noted. LYMPH NODES:There is no retroperitoneal nor paraaortic adenopathy. However, there are numerous sligh tly enlarged mesenteric lymph nodes. ABDOMINAL WALL: No evidence of significant anterior abdominal wall nor inguinal hernia. GI: There is no evidence of bowel obstruction, free air, nor abscess. PELVIS: GI: Partial right hemicolectomy. Right-sided anastomosis exhibits some tearing as stenosis streaking but no true fluid collection. No bowel obstruction at this level. No free air. Sigmoid diverticul osis. No diverticulitis evident. LYMPH NODES: There is no intrapelvic nor inguinal adenopathy. REPRODUCTIVE: Prostate size upper normal. URINARY BLADDER: Thickened bladder wall but no obvious distinct focal mass. OSSEOUS: No significant osseous lesions. There is ankylosis of the sacroiliac joints noted. Degener ative facet arthropathy noted in the lower lumbar spine. No lytic nor blastic osseous lesions eviden t. Other: Large bilateral hydroceles noted IMPRESSION: 1. Evidence of previous bowel surgery including partial right hemicolectomy. There is some streaking around the right sided anastomosis although there does not appear to be free air nor distinct absces s. 2. There 2 adjacent nonobstructive calculi in the right kidney midpole level. No calculi seen in the opposite-left kidney. No hydronephrosis nor hydroureter. No obvious radiopaque calculi in the urin lidia bladder. Bladder wall somewhat uniformly thickened without a distinct focal mass evident. 3. Stable small hepatic cysts again noted. 4. Generalized mesenteric streaking without a focal fluid collection. Also multiple slightly enlarge d mesenteric lymph nodes evident in this patient who apparently has history of inflammatory bowel dis ease. RADIATION DOSE DELIVERED: 4,407.7mGy.cm Total DLP DATA REPOSITORY: All CT scans at this facility are submitted to the National Radiology Data Registry (NRDR) Dose Index Registry (DIR) with the [employer] (ACR). RADIATION OPTIMIZATION: All CT scans at this facility use at least one of these dose optimization te chniques: automated exposure control; mA and/or kV adjustment per patient size (includes targeted exa ms where dose is matched to clinical indication); or iterative reconstruction.
== END ==
PROVIDERS: PCP Family Medicine; Visit Provider Nurse Practitioner Family
DX: N20.0 Calculus of kidney (principal); N28.1 Cyst of kidney, acquired
CPT/HCPCS: 74178

== ENCOUNTER → 2022-08-08 14:57 | Outpatient (BNVA) | payer MEDICARE, SELFPAY | PROVIDERS: PCP Family Medicine; Referring Provider Family Medicine; Visit Provider Nurse Practitioner Gerontology | DX: Z79.01 Long term (current) use of anticoagulants (principal); R31.0 Gross hematuria | CPT/HCPCS: 81003; 99214 ==

== ENCOUNTER → 2022-08-28 08:58 | Outpatient (BNVA) | payer MEDICARE, SELFPAY | PROVIDERS: PCP Family Medicine; Referring Provider Family Medicine; Visit Provider Urology | DX: R31.0 Gross hematuria (principal) | CPT/HCPCS: 52000; 99213 ==

== ENCOUNTER → 2022-10-15 12:56 | Outpatient (BNVA) | payer MEDICARE, SELFPAY | PROVIDERS: PCP Family Medicine; Referring Provider Family Medicine; Visit Provider Urology | DX: R31.0 Gross hematuria (principal); Z79.01 Long term (current) use of anticoagulants; I48.91 Unspecified atrial fibrillation | CPT/HCPCS: 99214 ==

== ENCOUNTER 2022-10-25 11:14 | Day surgery (SDC) | payer MEDICARE, SELFPAY ==
[2022-10-25] VITALS (7 sets, daily range): BP systolic 125–162; BP diastolic 61–89; PULSE 42–58; RESP 15–18; TEMP 36.3–36.4; O2SAT 96–98; BMI 28.7
--- NOTE | 2022-10-25 11:33 | W.PM.HP.N ---
Date of service: 10/25/22 Time of Service: 11:33 Assessment and Plan Assessment and plan (1) Gross hematuria: Status: Acute Assessment and plan: We will plan to do a cystoscopy and transurethral biopsy of the abnormal mucosa seen on the prostatic urethra. We will then cauterized the remainder of the prostatic mucosa. (2) Renal calculus, right: Status: Acute Assessment and plan: He is interested in having his stones addressed under the same anesthetic. We will plan for a retrograde pyelogram and flexible ureteroscopy with stone manipulation. We will have the holmium laser available should we need to fragment his stones. History of Present Illness History of Present Illness Chief Complaint: Gross hematuria Narrative: This is a 76-year-old gentleman who has a history of gross intermittent hematuria. He has had a CT urogram which demonstrated nonobstructing stones in the right kidney. No additional uropathology was identified. We then did cystoscopy in the office which showed some papillary lesions along the prostatic urethra. We treated him with a 5 alpha reductase inhibitor, but the hematuria has persisted. He now presents for biopsy of the abnormal mucosa and fulguration of the prostate. He is also interested in having his nonobstructing right-sided kidney stones addressed. Review of Systems Narrative: No fevers or chills Decreased hearing acuity. No vision change or dysphasia No diabetes or thyroid dysfunction Sleep apnea. No shortness of breath, cough or hemoptysis No chest pain or palpitations Crohn's disease. No hepatitis, ulcers, jaundice No seizures, strokes or peripheral neuropathy No bleeding disorders or anemia No gout PFSH All Active Problems Hypertension (Chronic) Vitamin B 12 deficiency (Acute) Left inguinal hernia (Acute) Crohn's disease (Chronic) Alcohol use (Acute) BRITTANY (obstructive sleep apnea) (Chronic) PAF (paroxysmal atrial fibrillation) (Acute) Following up with Dr. Bauer in 3 weeks per pt. 10/16/19 Renal calculus, right (Acute) Ascending aortic aneurysm (Acute) Gross hematuria (Acute) Hydronephrosis, right (Acute) History of resection of terminal ileum (Acute) PAF (paroxysmal atrial fibrillation) (Acute) Sensorineural hearing loss of both ears (Acute) Therapeutic drug monitoring (Acute) Basal cell carcinoma (Acute) face Medical History Actinic keratitis Anemia Aortic root dilation Blurred vision Cataract Chronic insomnia Erectile dysfunction Hearing impairment History of colon polyps Inguinal hernia Insomnia Leukopenia Mitral regurgitation Nephrolithiasis Sleep apnea Subcutaneous mass of left forearm Trochanteric bursitis Surgical History H/O knee surgery bilat History of colectomy Hx of colonoscopy (~11/11/20) Hx of cystoscopy Previous back surgery remove L4 Status post laser lithotripsy of ureteral calculus Social History Smoking/Tobacco Use Status: Former Tobacco Use Quit Date: 08/19/1959 Tobacco: How many years used: 5 Smoking risk assessment performed?: Yes Alcohol Intake: current Alcohol Intake frequency: 3 or more drinks per day Alcohol type: wine Drug use: Never Substance use type: does not use What type of physical activity do you participate in: swimming Duration: 15-30 minutes/day Frequency: 5-6 times per week Do you feel safe at home: Yes Do you feel safe in your relationship?: Yes Meds Allergies and Home Medications Allergies Allergy/AdvReac Type Severity Reaction Status Date / Time No Known Allergies Allergy Verified 10/25/22 11:22 Home Medications Medication Instructions Recorded Confirmed Type apixaban 5 mg tablet (Eliquis) 5 mg PO BID 06/29/19 10/23/22 History cholestyramine (with sugar) 4 gram 4 gm PO TID 06/29/19 10/25/22 History oral powder (Questran) cyanocobalamin (vitamin B-12) 1,000 mcg PO QMONTH 06/29/19 10/25/22 History 1,000 mcg capsule escitalopram oxalate 10 mg tablet 10 mg PO DAILY 06/29/19 10/25/22 History (Lexapro) flecainide 50 mg tablet 50 mg PO BID 06/29/19 10/25/22 History hydrochlorothiazide 12.5 mg capsule 12.5 mg PO DAILY 06/29/19 10/25/22 History pravastatin 20 mg tablet 20 mg PO QHS 06/29/19 10/25/22 History (Pravachol) zolpidem 5 mg tablet (Ambien) 5 mg PO QHS PRN 06/29/19 10/25/22 History pH test #100 ea 11/13/19 10/23/22 Rx sildenafil 50 mg tablet (Viagra) 50 mg PO PRN PRN 07/27/20 10/23/22 History diltiazem HCl 180 mg capsule,24 180 mg PO DAILY #90 caps 11/29/20 10/25/22 Rx hr,extended release (Tiazac) dutasteride 0.5 mg capsule 0.5 mg PO .weekly #30 caps 06/26/22 10/25/22 Rx (Avodart) potassium citrate 10 mEq (1,080 See Rx Instructions .Route 06/26/22 10/25/22 Rx mg) tablet,extended release .COMPLEX #100 tabs Exam Const General: cooperative and no acute distress Neck Neck: supple Resp Effort & Inspection: normal respiratory effort Auscultation: clear to auscultation bilaterally Cardio Rate: regular rate Rhythm: regular rhythm GI Palpation: soft and no masses Neuro General: patient alert, patient awake and patient oriented x3 Results Last Vital Signs Temp 36.3 C L 10/25/22 11:20 Pulse 58 L 10/25/22 11:20 Resp 16 10/25/22 11:20 BP 158/77 H 10/25/22 11:20 Pulse Ox 96 10/25/22 11:20 Time Spent Time spent with Patient: <40 minutes Time was spent: counseling the patient
[2022-10-25] MEDS: Lactated Ringers 1,000 ML 80 ML IV (11:43)
--- NOTE | 2022-10-25 12:15 | W.ANESPRE ---
General Info Date of Service Date Performed: 10/25/22 Height: 6 ft 2 in Weight: 101.4 kg Body Mass Index (BMI): 28.7 Surgical Procedure: Operation Date: 10/25/22 13:10 Proposed Procedure Side Surgeon p Cystoscopy w/TUR Biopsy/Fulguration of Prostate Philip Johnson MD s Cystoscopy/Possible Laser/Ureteroscopy Right Philip Johnson MD Meds Allergies and Home Medications Allergies Allergy/AdvReac Type Severity Reaction Status Date / Time No Known Allergies Allergy Verified 10/25/22 11:22 Home Medication Medication Instructions Recorded apixaban 5 mg tablet (Eliquis) 5 mg PO BID 06/29/19 cholestyramine (with sugar) 4 gram 4 gm PO TID 06/29/19 oral powder (Questran) cyanocobalamin (vitamin B-12) 1,000 mcg PO QMONTH 06/29/19 1,000 mcg capsule escitalopram oxalate 10 mg tablet 10 mg PO DAILY 06/29/19 (Lexapro) flecainide 50 mg tablet 50 mg PO BID 06/29/19 hydrochlorothiazide 12.5 mg capsule 12.5 mg PO DAILY 06/29/19 pravastatin 20 mg tablet 20 mg PO QHS 06/29/19 (Pravachol) zolpidem 5 mg tablet (Ambien) 5 mg PO QHS PRN 06/29/19 pH test #100 ea 11/13/19 sildenafil 50 mg tablet (Viagra) 50 mg PO PRN PRN 07/27/20 diltiazem HCl 180 mg capsule,24 180 mg PO DAILY #90 caps 11/29/20 hr,extended release (Tiazac) dutasteride 0.5 mg capsule 0.5 mg PO .weekly #30 caps 06/26/22 (Avodart) potassium citrate 10 mEq (1,080 See Rx Instructions .Route 06/26/22 mg) tablet,extended release .COMPLEX #100 tabs Current Visit Medications: Current Medications Generic Name Dose Route Start Last Admin Trade Name Freq PRN Reason Stop Dose Admin Ringer's Solution 1,000 mls @ 80 mls/hr 10/25/22 06:00 10/25/22 11:43 IV 11/23/22 23:59 80 mls/hr INFUSION COREY Administration Cefazolin Sodium/Dextrose 2 gm in 50 mls @ 100 mls/hr 10/25/22 06:00 Ancef Duplex IVPB 10/25/22 16:00 PREOP COREY IV Miscellaneous Supplies 1 each 10/25/22 06:00 Iv Access IV 11/23/22 23:59 DIRECTED COREY Sodium Chloride 0 ml 10/25/22 06:00 Normal Saline Flush 10 Ml Syr IV 11/23/22 23:59 PRN PRN Sodium Chloride 0 ml 10/25/22 06:00 Normal Saline 10 Ml Vial IJ 11/23/22 23:59 DIRECTED PRN Sterile Water 0 ml 10/25/22 06:00 Water,Injection,Sterile 10 Ml Vial IJ 11/23/22 23:59 DIRECTED PRN PFSH Active Problems Active Problems: Problem Status Onset Code Hypertension I10 Vitamin B 12 deficiency E53.8 Left inguinal hernia K40.90 Crohn's disease K50.90 Alcohol use Z72.89 BRITTANY (obstructive sleep apnea) G47.33 PAF (paroxysmal atrial fibrillation) I48.0 Renal calculus, right N20.0 Ascending aortic aneurysm I71.2 Gross hematuria R31.0 Hydronephrosis, right N13.30 History of resection of terminal ileum Z98.890, Z90.49 PAF (paroxysmal atrial fibrillation) I48.0 Sensorineural hearing loss of both ears H90.3 Therapeutic drug monitoring Z51.81 Basal cell carcinoma C44.91 Medical History Medical History Actinic keratitis Anemia Aortic root dilation Blurred vision Cataract Chronic insomnia Erectile dysfunction Hearing impairment History of colon polyps Inguinal hernia Insomnia Leukopenia Mitral regurgitation Nephrolithiasis Sleep apnea Subcutaneous mass of left forearm Trochanteric bursitis Surgical History Surgical History H/O knee surgery bilat History of colectomy Hx of colonoscopy (~11/11/20) Hx of cystoscopy Previous back surgery remove L4 Status post laser lithotripsy of ureteral calculus Tobacco Smoking/Tobacco Use Status: Former Tobacco Use Alcohol Alcohol Intake: current Alcohol intake frequency: 3 or more drinks per day Alcohol type: wine Substance Use Substance use: Never Substance use type: does not use Vital Signs and Lab Results Vital Signs Most Recent Vital Signs in EMR: Most Recent Vital Signs Temp Pulse Resp BP Pulse Ox 36.3 C L 58 L 16 158/77 H 96 10/25/22 11:20 10/25/22 11:20 10/25/22 11:20 10/25/22 11:20 10/25/22 11:20 Lab Results Blood Type / Crossmatch: No Data to Display Complete Blood Count: No Data to Display Complete Metabolic Panel: No Data to Display Liver Function Panel: No Data to Display Coagulation Panel: No Data to Display Cardiac Panel: No Data to Display Arterial Blood Gas: No Data to Display Venous Blood Gas: No Data to Display Pancreas Panel: No Data to Display Thyroid Panel: No Data to Display Infectious Disease: No Data to Display Blood Cultures: No Data to Display Toxicology Panel: No Data to Display Imaging and Studies Imaging and Studies Study information below may be from another EMR and interpreted by another provider. Please see original notes in EMR for more complete details. EKG Summary: 12/12/21 Conclusion Sinus rhythm...normal P axis, V-rate 50- 99 Baseline wander in lead(s) V3 Stress Test Summary: MPI Conclusion Normal myocardial perfusion without evidence of ischemia or prior infarction EF 52%, normal wall motion MPI Conclusion Normal myocardial perfusion without evidence of ischemia or prior infarction EF 52%, normal wall motion Echocardiogram Summary: Conclusion Normal left ventricular wall thickness and chamber size. Estimated ejection fraction is 55 to 60%. Wall motion is normal Normal right ventricular size and systolic function Left atrium is moderately dilated. The right atrium is mildly dilated Trileaflet aortic valve with trace regurgitation Mild mitral annular calcification, moderate mitral regurgitation Normal tricuspid valve with mild regurgitation. Estimated right ventricular systolic pressure is 31 mmHg Normal pulmonic valve with mild to moderate regurgitation Dilated ascending aorta measuring 4.5 cm Compared to an echocardiogram from November 2020, there is no significant interval change Anesthesia Assessment and Plan Anesthesia History Personal History: No History of Anesthesia Complications Family History: No Family History of Anesthesia Complications Exercise Tolerance Exercise Tolerance: Metabolic Equivalents>4 Cardiac & Pulmonary Exam Cardiac Exam: Normal S1/S2 Heart Sounds Pulmonary Exam: Clear Bilateral Breath Sounds Implantable Cardiac Device Does patient have a Pacemaker or an ICD?: No Airway Exam Known Difficult Airway: No Mallampati Class: 3 Mouth Opening: Normal (> 3cm) Thyromental Distance: Greater than 3 cm Neck Range of Motion: Full ROM Neck Circumference: Normal Teeth Condition: Normal Dentition ASA Classification ASA Score: ASA 3 Emergency Case?: No NPO Status NPO Status: NPO Clears >2 hours, Solids >8 hours Anesthesia Plan Resuscitation Status: Full Code Anesthesia Technique: General Anesthesia Airway Planned: LMA Monitors Used: Standard Monitors
--- NOTE | 2022-10-25 12:27 | DI.RAD_ITS ---
Exam(s) XR RETROGRADE IN OR EXAM: XR RETROGRADE IN OR CLINICAL HISTORY: renal stone. TECHNIQUE: Fluoroscopy was provided for the referring physician for guidance with performing retrogr matthias procedure. COMPARISON: No exams were available for comparison FINDINGS: Please see procedure note for details. Fluoro time: 67.2 seconds RADIATION DOSE DELIVERED: karlene Mcintyre=30.34 mGy
[2022-10-25] MEDS: ceFAZolin 2 GM/50 ML BAG IVPB (13:13)
[2022-10-25] MEDS: Lidocaine 2% Jelly 11 ML SYR (13:24)
[2022-10-25] MEDS: Omnipaque 300 MG/ML 50 ML BTL (13:26)
--- NOTE | 2022-10-25 13:57 | PROST_PTH ---
PATIENT: Nathan Krueger LOC: [facility] U#:[id number] AGE/SX: 76/M ROOM: RE10/25/[address]: Philip Johnson MD : 1945 BED: DIS: 10/25/2022 SPEC #: [id number] RECD: 10/25/22 18:20 STATUS: PAWEL REQ #: [id number] SHANTELLE: 10/25/22 13:[address]: Philip Johnson DEPT: Surgical Specimen RECD BY: Anila Estrada ENTERED: 10/25/22 18:21 SP TYPE: PROST OTHR DR: Nathan Diaz Tissues: 1 - PROSTATE CURRETTINGS Procedures: GROSS AND MICRO LEVEL 4 Comments: [id number]
--- NOTE | 2022-10-25 14:07 | PDOC.DSDIS_ITS ---
Date of service: 10/25/22 Time of Service: 14:07 Discharge Plan Disposition Condition: Stable Discharge Details Reason For Visit: cystoscopy Attending Provider: Philip Johnson Primary Care Provider: Nathan Diaz [place] Meds and New Rx's Prescriptions: No Action dutasteride [Avodart] 0.5 mg capsule 0.5 mg PO .weekly Qty: 30 4RF potassium citrate 10 mEq (1,080 mg) tablet extended release See Rx Instructions .ROUTE .COMPLEX Qty: 100 12RF Dose Instruction: TAKE 1 TABLET BY MOUTH TWICE DAILY FOR STONE PREVENTION Rx Instructions: TAKE 1 TABLET BY MOUTH TWICE DAILY FOR STONE PREVENTION (DME) pH test Strip See Rx Instructions .ROUTE .MEDSUPPLY Qty: 100 12RF Rx Instructions: As directed hydrochlorothiazide 12.5 mg capsule 12.5 mg PO DAILY Eliquis 5 mg tablet 5 mg PO BID Hold Instructions: Resume on 06/09/22. Patient Comments: pt. states he has not taken since before last procedure pravastatin [Pravachol] 20 mg tablet 20 mg PO QHS escitalopram oxalate [Lexapro] 10 mg tablet 10 mg PO DAILY flecainide 50 mg tablet 50 mg PO BID cyanocobalamin (vitamin B-12) 1,000 mcg capsule 1,000 mcg PO QMONTH cholestyramine (with sugar) [Questran] 4 gram powder 4 gm PO TID zolpidem [Ambien] 5 mg tablet 5 mg PO QHS PRN sildenafil [Viagra] 50 mg tablet 50 mg PO PRN PRN Rx Instructions: administer 30 minutes to 4 hours before activity diltiazem HCl [Tiazac] 180 mg capsule,extended release 24 hr 180 mg PO DAILY Qty: 90 3RF Discharge Instructions Additional Instructions: followup early next week for stent removal - tell my office pt has string on end of stent followup pathology appt 1 to 2 weeks followup appt 6 to 8 weeks for renal US to be done in office (can be done once patient returns from his upcoming trip) may restart anticoagulants 10/29 Activity:: Activity as Tolerated Shower/Bathe:: 24 hours Diet:: As Tolerated DS: Diagnosis Discharge Diagnosis (1) Gross hematuria: Status: Acute (2) Renal calculus, right: Status: Acute
--- NOTE | 2022-10-25 14:12 | W.PM.OP ---
Date of service: 10/25/22 Time of Service: 14:12 Operative Note Operative Note DATE OF PROCEDURE: 10/25/22 PRE-OP DIAGNOSIS: 1. Hematuria 2. Right kidney stones Right UPJ obstruction PROCEDURE: cystoscopy, right retrograde pyelogram, right ureteral dilation, right ureteroscopy, insert right ureteral stent TUR Prostate lesions with fulguration of prostate mucosa SURGEON: Philip Johnson ANESTHESIA TYPE: General LMA/ETT Refer to Anesthesia Record ESTIMATED BLOOD LOSS: 5 PATHOLOGY: other (prostate tissue) COMPLICATIONS: None Patient was transported to: PACU Patient's condition: stable Implants: 7 [place] by 22 to 30 cm right ureteral stent Indications: This is a 76-year-old gentleman who has a history of gross painless hematuria. He has been evaluated with a CT urogram which showed 2 small stones in the right kidney. On cystoscopy, we found some inflammatory appearing polyps on the prostatic urethra. It was felt that the prostate was likely the source of the hematuria. He was treated with 5 alpha reductase inhibitors, but the hematuria has persisted. He presents now for cystoscopy with fulguration of the prostate. We will plan on taking a biopsy of the abnormal prostate mucosa. We will also attempt ureteroscopy to address his right-sided kidney stones. Findings: 1 papillary lesions on the prostatic urethra 2 right UPJ obstruction Procedure Description: The patient was brought to the operating room on 10/25/2022. After successful induction of general anesthesia, he was placed in the dorsal lithotomy position. His genitalia was prepped and draped. 2% Xylocaine jelly was instilled into the urethra to act as a local anesthetic. I began by passing a 23 [place] rigid cystoscope through the urethra into the bladder. The urethra and bladder were inspected with a 30 degree lens. The pendulous, bulbar and membranous urethra was all appeared normal with no strictures. There were some inflammatory polyps at the region of the verumontanum on the prostatic urethra. No additional abnormalities were seen in the prostate. The bladder neck was then entered and the bladder mucosa was inspected. Both ureteral orifices appeared normal with no blood on either side. Multiple small yellow stones were seen within the bladder. I initially attempted to cannulate the right ureteral orifice with a 5 [place] access catheter. I was not successful, so I passed a guidewire through the cystoscope and maneuvered the wire into the ureteral orifice. I was then able to pass the access catheter over the wire. A retrograde pyelogram was obtained by injecting Omnipaque through the access catheter under fluoroscopic guidance. The ureter showed no filling defects. The renal pelvis and calyces were dilated with a narrowing at the ureteropelvic junction. This was previously identified on his CT urogram and nuclear renogram. I then passed a dual-lumen catheter over the wire and a second wire was positioned. We chose one of the wires as a working wire and the other as a safety wire. We passed a ureteral access sheath over the working wire leaving the safety wire in place. I passed the flexible ureteroscope through the access sheath up to the level of the ureteropelvic junction. I was initially unable to pass the scope through the ureteropelvic junction, but I was subsequently able to dilate the area with a ureteral balloon dilator and passed the scope. The stones in the lower pole calyx where flushed out and down the ureter. The scope was then removed. We passed a 7 [place] variable length stent over the safety wire and positioned the stent with the proximal end curled in the renal pelvis and the distal end curled within the bladder. We left the safety string in place and brought the string through the urethra. We anchored the string onto the dorsum of the penis. We then passed a 24 [place] resectoscope sheath through the urethra into the bladder. Using an [employer] resectoscope and bipolar cautery, we resected the overlying prostatic mucosa that contained the polypoid tissue. The resected tissue was sent to pathology for permanent section. We then switched to a cautery button and cauterized the resection site and the remainder of the prostatic mucosa. At the completion of the procedure there was no active bleeding seen. The bladder was emptied and the resectoscope was removed. He tolerated this procedure well with no complications.
--- NOTE | 2022-10-25 15:43 | W.ANESPOSTOP ---
Postoperative Evaluation Date, Time and Location Date Performed: 10/25/22 Time Performed: 14:53 Patient Location: PACU Vital Signs Most Recent Imported Vital Signs: Most Recent Vital Signs Temp Pulse Resp BP Pulse Ox 36.3 C L 49 L 16 162/89 H 98 10/25/22 15:26 10/25/22 15:26 10/25/22 15:26 10/25/22 15:26 10/25/22 15:26 Pain Score Most Recent Pain Score: Most Recent Pain Score Pain Level 0 10/25/22 15:26 Assessment Mental Status: Awake (Alert & Oriented to Patient Baseline) Airway and Respiratory Function: Patent airway with normal (patient baseline) respiratory exam Cardiovascular Function: Hemodynamically Stable Hydration Status: Adequately Hydrated Nausea & Vomiting: No Nausea or Vomiting Pain: Pain is tolerable per patient Peripheral Nerve Block: Patient did not receive a nerve block
== END 2022-10-25 16:12 | disposition home or self-care (01) ==
PROVIDERS: PCP Family Medicine; Visit Provider Urology
PROC: 0TBB8ZZ Excision of Bladder, Via Natural or Artificial Opening Endoscopic (ICD-10-PCS; CPT 52352; principal; 2022-10-25 13:00)
PROC: (CPT 52352; 2022-10-25 13:00)
DX: R31.0 Gross hematuria (principal); N20.0 Calculus of kidney; N40.0 Benign prostatic hyperplasia without lower urinary tract symptoms
CPT/HCPCS: 52352; 52332; 52214; 00914; 88305; 74420; J0690; J1100; J1885; J2405; J2704; Q9967

== ENCOUNTER → 2022-10-29 11:26 | Outpatient (BNVA) | payer MEDICARE, SELFPAY | PROVIDERS: PCP Family Medicine; Referring Provider Family Medicine; Visit Provider Urology | DX: Z48.816 Encounter for surgical aftercare following surgery on the genitourinary system (principal) ==

== ENCOUNTER 2022-11-01 15:37 | Outpatient (REF) | payer MEDICARE, SELFPAY ==
[2022-11-01 18:39] LABS: Abs Immature Grans 0.01 10^3/uL (0.0-0.06); Absolute Basophil Count 0.04 10^3/uL (0.0-0.2); Absolute Eosinophil Count 0.19 10^3/uL (0.0-0.7); Absolute Lymphocyte Count 2.25 10^3/uL (1.2-3.4); Absolute Monocyte Count 0.71 10^3/uL (0.1-0.8); Absolute Neutrophil Count 3.45 10^3/uL (1.2-6.7); Basophils % 0.6; Eosinophils % 2.9; HCT 37.8 % (40.0-50.0); HGB 12.9 g/dL (13.5-17.5); Immature Grans % 0.2; Lymphocytes % 33.8; MCH 31.5 pg (27.0-33.0); MCHC 34.1 % (32.0-36.0); MCV 92 fL (80-95); MPV 10.5 fL (8.0-11.0); Monocytes % 10.7; Neutrophils % 51.8; Platelet Count 171 10^3/uL (130-400); RBC 4.09 10^6/uL (4.36-5.78); RDW 12.1 % (11.8-14.1); WBC 6.65 10^3/uL (4.4-10.8)
[2022-11-01 19:16] LABS: ALT 36 U/L (16-63); AST 22 U/L (15-37); Albumin 3.6 g/dL (3.4-5.0); Alkaline Phosphatase 106 U/L (46-116); Anion Gap 9.1 mmol/L (3-11); BUN 19 mg/dL (7-18); Bilirubin, Total 0.7 mg/dL (0.2-1.0); CO2 25.9 mmol/L (21.0-32.0); CREATININE 1.1 mg/dL (0.70-1.30); Calcium 8.7 mg/dL (8.5-10.1); Chloride 104 mmol/L (98-107); Estimated GFR 69.14 (mL/min/1.73m2); Glucose 128 mg/dL (74-106); Potassium 3.8 mmol/L (3.5-5.1); Sodium 139 mmol/L (136-145); Total Protein 7.4 g/dL (6.4-8.2); Vitamin B12 451 pg/mL (193-986)
== END 2022-11-01 15:38 | disposition home or self-care (01) ==
LOC: NCHCN 15:37
PROVIDERS: PCP Family Medicine; Visit Provider Family Medicine
DX: E53.8 Deficiency of other specified B group vitamins (principal); D64.9 Anemia, unspecified; D72.819 Decreased white blood cell count, unspecified
CPT/HCPCS: 80053; 82607; 85025

== ENCOUNTER → 2022-11-13 14:55 | Outpatient (BNVA) | payer MEDICARE, SELFPAY | PROVIDERS: PCP Family Medicine; Referring Provider Family Medicine; Visit Provider Urology | DX: R31.0 Gross hematuria (principal) | CPT/HCPCS: 81003; 99214 ==

== ENCOUNTER 2022-12-05 03:01 | Outpatient (CLI) | payer MEDICARE, SELFPAY ==
[2022-12-05 15:13] LABS: HCT 37.9 % (40.0-50.0); HGB 12.9 g/dL (13.5-17.5)
== END 2022-12-05 03:02 | disposition home or self-care (01) ==
LOC: LBO 03:01
PROVIDERS: PCP Family Medicine; Visit Provider Urology
DX: R31.0 Gross hematuria (principal); I10 Essential (primary) hypertension
CPT/HCPCS: 36415; 85014; 85018

== ENCOUNTER → 2022-12-07 11:24 | Outpatient (BNVA) | payer MEDICARE, SELFPAY | PROVIDERS: PCP Family Medicine; Referring Provider Family Medicine; Visit Provider Urology | DX: N13.30 Unspecified hydronephrosis (principal); R31.0 Gross hematuria | CPT/HCPCS: 76775; 99213 ==

== ENCOUNTER 2023-02-26 18:47 | Outpatient (REF) | payer MEDICARE, SELFPAY ==
[2023-02-26 14:36] LABS: Abs Immature Grans 0.01 10^3/uL (0.0-0.06); Absolute Basophil Count 0.04 10^3/uL (0.0-0.2); Absolute Eosinophil Count 0.22 10^3/uL (0.0-0.7); Absolute Lymphocyte Count 1.82 10^3/uL (1.2-3.4); Absolute Monocyte Count 0.55 10^3/uL (0.1-0.8); Absolute Neutrophil Count 2.62 10^3/uL (1.2-6.7); Basophils % 0.8; Eosinophils % 4.2; HCT 38.4 % (40.0-50.0); HGB 13.7 g/dL (13.5-17.5); Immature Grans % 0.2; Lymphocytes % 34.6; MCH 32.2 pg (27.0-33.0); MCHC 35.7 % (32.0-36.0); MCV 90 fL (80-95); MPV 10.4 fL (8.0-11.0); Monocytes % 10.5; Neutrophils % 49.7; Platelet Count 161 10^3/uL (130-400); RBC 4.25 10^6/uL (4.36-5.78); RDW 11.9 % (11.8-14.1); RDW-SD 39.2 fL; WBC 5.26 10^3/uL (4.4-10.8)
[2023-02-26 15:00] LABS: ALT 35 U/L (16-63); AST 25 U/L (15-37); Albumin 3.8 g/dL (3.4-5.0); Alkaline Phosphatase 119 U/L (46-116); Anion Gap 10.3 mmol/L (3-11); BUN 19 mg/dL (7-18); Bilirubin, Total 0.6 mg/dL (0.2-1.0); CO2 26.7 mmol/L (21.0-32.0); CREATININE 1.1 mg/dL (0.70-1.30); Chloride 103 mmol/L (98-107); Estimated GFR 68.71 (mL/min/1.73m2); Glucose 102 mg/dL (74-106); Potassium 3.7 mmol/L (3.5-5.1); Sodium 140 mmol/L (136-145); Total Protein 7.9 g/dL (6.4-8.2)
== END 2023-02-26 18:48 | disposition home or self-care (01) ==
LOC: LBN 18:47
PROVIDERS: PCP Family Medicine; Visit Provider Nurse Practitioner Family
DX: D64.9 Anemia, unspecified (principal); N28.9 Disorder of kidney and ureter, unspecified
CPT/HCPCS: 80053; 85025

== ENCOUNTER 2023-03-06 00:44 | Outpatient (CLI) | payer MEDICARE, SELFPAY ==
--- NOTE | 2023-03-06 08:00 | DI.US_ITS ---
APPROVED REPORT EXAM: Comprehensive 2D, Doppler, and color-flow Echocardiogram Patient Location: Out-Patient Boat Garnisher: Sanford Trinidad RDMS, RVT Indications: check ascending aorta, HTN, afib Other Information Study Quality: Adequate Conclusion Normal left ventricular wall thickness and chamber size. Ejection fraction is 65%. Wall motion is n ormal Normal right ventricular size and systolic function Left atrium is mildly dilated. Right atrial size is normal Aortic valve is trileaflet without stenosis or regurgitation Structurally normal mitral valve with moderate regurgitation Normal tricuspid valve with mild to moderate regurgitation. Estimated right ventricular systolic pre ssure is 32 mmHg Dilated ascending aorta measuring 4.45 cm Wall motion Left Ventricle The left ventricle is normal size. The left ventricular systolic function is normal. The left ventric ular ejection fraction is within the normal range. There is normal left ventricular wall thickness. T here is normal LV segmental wall motion. There is no ventricular septal defect visualized. LVEF is 65 %. Right Ventricle Right ventricle is grossly normal in size. Right ventricular systolic function is grossly normal. The RVSP is 32.2 mmHg. Atria Left atrium is mildly dilated. The right atrium size is normal. Aortic Valve The aortic valve is normal in structure. Aortic valve is trileaflet. There is no aortic valvular sten osis. No aortic regurgitation is present. Mitral Valve The mitral valve is normal in structure. No evidence of mitral valve stenosis. Moderate mitral regurg itation. Tricuspid Valve The tricuspid valve is normal in structure. There is no tricuspid valve stenosis. Mild to moderate tr icuspid regurgitation. Pulmonic Valve The pulmonary valve is normal in structure. There is no pulmonic valvular stenosis. Moderate pulmonic regurgitation. Great Vessels The aortic root is normal in size. The ascending aorta is moderately dilated. Aortic arch is not well visualized. IVC is normal in size and collapses >50% with inspiration. Pericardium There is no pericardial effusion. 2D Dimensions IVSD d PLAX 0.87 cm M: 0.6-1.2 LV Vol A2C d MOD 98.8 mL LVPW d PLAX 0.88 cm M: 0.6 - 1.2 LV Vol A4C d MOD 193.3 mL LVID d PLAX 5.50 cm M: 4.2 - 5.8 LA vol/ BSA A4C s A-L 42.6 mL/m2 LVDs 3.45 cm M: 2.5 - 4.0 LA Area A4C s MOD 26.06 cm2 Ao Root d 3.59 cm M: 3.1 - 3.7 LV EF A4C MOD 62.8 % Ao Asc Diam d 4.45 cm M: 2.6 - 3.4 LV EF A2C MOD 69.4 % LV EF Teichholz 65.6 % LV EF Biplane MOD 65.4 % LVEF (Dang's) 65.44 % M: 52 - 72 SV 95.26 mL LV Volume 105.28 mL M: 62 - 150 SV Index 42.51 mL/m2 LV Volume Index 47.00 mL/m2 M: 34 - 74 LV Vol Biplane MOD 145.6 mL FS 36.45 % M-Mode TAPSE 2.77 cm (M/F) >1.7 LV Diastology MV E' medial 0.173 (>0.07 m/s) E/A Ratio 1.4 LV E/e MED 5.80 (<14) MV E Vmax 1.00 (0.4-1.3 m/s) MV E' lateral 0.117 (>0.1 m/s) MV A Vmax 0.70 (0.4-1.3 m/s) LV E/e LAT 8.50 (<14) MV E/A Ratio 1.40 MV E/E' medial 5.80 MV E/E' lateral 8.54 Aortic Valve LVOT Area 4.11 cm2 AoV Area Vmax 3.33 cm2 LVOT Vmax 1.03 m/s AoV Area/ BSA (Vmax) 1.49 cm2/m2 LVOT Mean Gil. 0.71 m/s EDWARD Mean Gil. 3.24 cm2 LVOT Peak Grad 4.3 mmHg EDWARD Mean Gil. Index 1.44 cm2/m2 LVOT Mean Grad 2.3 mmHg LVOT VTI 0.255 m LVOT Diam s 2.25 cm AoV Vmax 1.28 m/s Velocity Ratio 0.80 AoV Mean Gil. 0.90 m/s AoV Peak Grad 6.5 mmHg LVOT SV 104.71 mL AoV Mean Grad 3.7 mmHg AoV VTI 0.304 m AoV Area VTI 3.44 cm2 AoV Area/ BSA (VTI) 1.54 cm/m2 Mitral Valve MV DT 164 (160-240 msec) MR Vmax 5.35 m/s MV PHT 47 msec MR VTI 2.058 m MV Area PHT 4.64 cm2 MR Peak Grad 114.3 mmHg MV VTI 0.352 m MR Mean Grad 82.7 mmHg MV Area VTI 2.97 (4.0-6.0 cm2) MR PISA Radius 0.31 cm MR EROA 0.04 cm2 MR Aliasing Velocity 0.35 m/s MR PISA 0.61 cm2 Pulmonary Valve PV Vmax 1.15 (0.5-1.5 m/s) RVOT Peak Gr. 2.00 mmHg PV Peak Grad 5.3 mmHg RVOT Mean Gr. 0.95 mmHg PV Mean Grad 2.6 mmHg RVOT VTI 0.175 m PV VTI 0.258 m RVOT Vmax 0.71 m/s Tricuspid Valve TR Peak Grad 29.2 mmHg TR Vmax 2.70 m/s RA Pressure 3.00 mmHg RVSP (TR) 32.2 mmHg
== END 2023-03-06 01:04 ==
LOC: DI 00:44
PROVIDERS: PCP Family Medicine; Visit Provider Internal Medicine Cardiovascular Disease
DX: I10 Essential (primary) hypertension (principal); I48.0 Paroxysmal atrial fibrillation
CPT/HCPCS: 93306

== ENCOUNTER → 2023-03-19 14:26 | Outpatient (BNVA) | payer MEDICARE, SELFPAY | PROVIDERS: PCP Family Medicine; Referring Provider Family Medicine; Visit Provider Urology | DX: R31.0 Gross hematuria (principal) | CPT/HCPCS: 99213 ==

== ENCOUNTER 2023-03-20 14:55 | Outpatient (REF) | payer MEDICARE, SELFPAY ==
--- NOTE | 2023-03-20 14:50 | PAPNONF_PTH ---
PATIENT: Nathan Krueger LOC: [facility] U#:[id number] AGE/SX: 77/M ROOM: RE03/20/[address]: Philip Johnson MD : 1945 BED: DIS: 03/20/2023 SPEC #: [id number] RECD: 03/20/23 17:57 STATUS: PAWEL RELizzette #: [id number] SHANTELLE: 03/20/23 14:[address]: Philip Johnson DEPT: [facility] Cytology RECD BY: Anila Estrada ENTERED: 03/20/23 17:58 SP TYPE: NICHO LOPEZ DR: Nathan Diaz Tissues: 1 - BODY FLUID CYTO(SPUTUM/URINE)[facility] Procedures: BODY FLUID CYTO(URINE/SPUTUM) Comments: [id number] (TV = 75 ml, 30 mL CYTOLYT ADDED) (REFRIGERATED)
[2023-03-20 15:40] LABS: Bilirubin Negative (Negative); Blood Large (Negative); Clarity Clear (Clear); Glucose Negative (Negative); Ketones Negative (Negative); Leukocyte Esterase Negative (Negative); Nitrite Negative (Negative); Specific Gravity 1.025 (1.005-1.025); Urobilinogen 0.2 mg/dL (Up to 0.2); pH 5.5 (5-8)
[2023-03-20 15:46] LABS: WBC 0-2 HPF (0-5)
[2023-03-20 15:47] LABS: Bacteria Moderate HPF (Negative); C & S Indicated? No; Casts Negative LPF (Negative); Crystals Negative HPF (Negative); Epithelial Cells Rare HPF (Negative); Mucus Trace (Negative); Other Cells Negative (Negative)
== END 2023-03-20 14:56 | disposition home or self-care (01) ==
LOC: LBN 14:55
PROVIDERS: PCP Family Medicine; Visit Provider Urology
DX: R31.0 Gross hematuria (principal)
CPT/HCPCS: 81003; 81015; 88104

== ENCOUNTER 2023-03-21 15:22 | Outpatient (CLI) | payer MEDICARE, SELFPAY ==
[2023-03-21 15:16] LABS: D-Dimer 910 ng/mlFEU (<500)
== END 2023-03-21 15:23 | disposition home or self-care (01) ==
PROVIDERS: PCP Family Medicine; Visit Provider Family Medicine
DX: M79.89 Other specified soft tissue disorders (principal)
CPT/HCPCS: 36415; 85379

== ENCOUNTER 2023-03-25 09:24 | Outpatient (CLI) | payer MEDICARE, SELFPAY ==
--- NOTE | 2023-03-25 09:15 | RT.EKG_ITS ---
APPROVED REPORT Exam: Resting ECG Reason for Exam: PAF Patient Location: O HR:60 bpm ECG Measurements Heart Rate 60 AXIS PA 208 P 9 QRSd 111 QRS 4 QT 488 T 49 QTc 488 Conclusion Sinus rhythm...normal P axis, V-rate 50- 99 Probable left atrial enlargement...P >50mS, <-0.10mV V1 borderline IVCD
== END 2023-03-25 09:25 | disposition home or self-care (01) ==
LOC: DI.CARD 09:26
PROVIDERS: PCP Family Medicine; Visit Provider Internal Medicine Cardiovascular Disease
DX: I48.0 Paroxysmal atrial fibrillation (principal); Z51.81 Encounter for therapeutic drug level monitoring
CPT/HCPCS: 93010

== ENCOUNTER → 2023-03-25 13:14 | Outpatient (BNVA) | payer MEDICARE, SELFPAY | PROVIDERS: PCP Family Medicine; Visit Provider Internal Medicine Cardiovascular Disease | DX: I10 Essential (primary) hypertension (principal); I48.0 Paroxysmal atrial fibrillation; I77.810 Thoracic aortic ectasia | CPT/HCPCS: 99214 ==

== ENCOUNTER 2023-03-25 14:57 | Outpatient (CLI) | payer MEDICARE, SELFPAY ==
--- NOTE | 2023-03-25 | DI.US_ITS ---
Exam(s) US LOWER EXTREMITY VENOUS LT EXAM: US LOWER EXTREMITY VENOUS LT CLINICAL HISTORY: SWELLING OF LT LEG, M79.89. TECHNIQUE: Lower extremity venous ultrasound performed using grayscale, color-flow, and spectral Do ppler analysis. COMPARISON: No exams were available for comparison FINDINGS: The common femoral, femoral and popliteal veins demonstrate normal compressibility, augmentation, and color Doppler. The posterior tibial veins are patent. No saphenous vein thrombosis or other superfi cial venous thrombosis is seen. Vazquez's cyst measuring 5.9 x 1.6 x 2.9 cm. IMPRESSION: Vazquez's cyst.. No evidence of DVT. DATA REPOSITORY:
--- NOTE | 2023-03-25 | DI.RAD_ITS ---
Exam(s) XR KNEE LT 3V AP,LAT,XENA EXAM: XR KNEE LT 3V AP,LAT,XENA CLINICAL HISTORY: LT KNEE PAIN, M25.562. TECHNIQUE: 2D digital imaging was performed. Three views. COMPARISON: No exams were available for comparison FINDINGS: BONES: No acute fracture is present. No bony destructive lesion is seen. JOINTS: There is severe narrowing of the medial femoral tibial joint space with a [id number] appear ance. There is permanent periarticular spurring. The there is also spurring at the patellofemoral j oint, tibial spines and lateral tibial plateau. A small joint effusion is seen. Chondrocalcinosis is visible in the lateral femoral tibial joint. SOFT TISSUE: Normal. IMPRESSION: end-stage degenerative changes of the medial femoral tibial joint. DATA REPOSITORY: RADIATION DOSE DELIVERED:
== END 2023-03-25 15:17 ==
LOC: DI 14:59
PROVIDERS: PCP Family Medicine; Visit Provider Family Medicine
DX: M17.12 Unilateral primary osteoarthritis, left knee; M79.89 Other specified soft tissue disorders
CPT/HCPCS: 73562; 93005; 99214; 93971

== ENCOUNTER → 2023-04-18 12:51 | Outpatient (BNVA) | payer MEDICARE, SELFPAY | PROVIDERS: PCP Family Medicine; Referring Provider Family Medicine | DX: M17.12 Unilateral primary osteoarthritis, left knee (principal) | CPT/HCPCS: 99213 ==

== ENCOUNTER → 2023-06-24 13:58 | Outpatient (BNVA) | payer MEDICARE, SELFPAY | PROVIDERS: PCP Family Medicine; Referring Provider Family Medicine; Visit Provider Student in an Organized Health Care Education/Training Program | DX: M17.12 Unilateral primary osteoarthritis, left knee (principal); I48.91 Unspecified atrial fibrillation | CPT/HCPCS: 99213 ==

== ENCOUNTER → 2023-06-25 14:26 | Outpatient (BNVA) | payer MEDICARE, SELFPAY | PROVIDERS: PCP Family Medicine; Visit Provider Urology | DX: R31.0 Gross hematuria (principal); Z87.442 Personal history of urinary calculi | CPT/HCPCS: 81003; 99215 ==

== ENCOUNTER 2023-07-22 03:57 | Outpatient (CLI) | payer MEDICARE, SELFPAY ==
--- OUTSIDE RECORDS SUMMARY | 2023-07-22 04:02 | XMS_ITS | Continuity of Care Document ---
Author Name Unknown Organization [facility] Address [address] [place] [id number] Care Team Providers Care Benefits Clerk Name Role Phone ABDI GUNN, ELENITA Stevens Primary Care Physician [phone] Encounter [facility] NBR [id number] Date(s): 01/17/23 - 01/17/[address] [address]- Encounter Diagnosis Basal cell carcinoma of face(Discharge Diagnosis) - 01/17/23 Discharge Disposition: Home f/u Internal Provider Attending Physician: Mikie Galvan DO Admitting Physician: Mikie Galvan DO Referring Physician: Mikie Galvan DO Allergies, Adverse Reactions, Alerts No Known Medication Allergies Substance Reaction Severity Status Adhesive Bandage Rash Mild Active Assessment and Plan Future Appointments Functional Status 01/17/23 Family Member Travel History No recent t ravel Recent Travel History No recent travel Other exposure to Infectious Disease Non e Medications !-Keflex 500 mg oral capsule 500 mg = 1 cap, Oral, BID, # 10 cap, 0 Refill(s), Pharmacy: [facility], 188, cm, 01/16/23 13:37:00 EDT, Height/Length Dosing, 98, kg, 01/16/23 13:37:00 EDT, Weight Dosing Start Date: 01/17/23 Stop Date: 01/22/23 Status: Ordered cholestyramine 4 g/9 g oral powder for reconstitution 1 packets, Oral, TID, 0 Refill(s) Start Date: 01/16/23 Status: Ordered cyanocobalamin 1000 mcg/mL injectable solution 1,000 mcg = 1 mL, IM, every month, 0 Refill(s) Start Date: 01/16/23 Status: Ordered DilTIAZem (Eqv-Cardizem CD) 180 mg/24 hours oral capsule, extended release 180 mg = 1 cap, Oral, Daily, 0 Refill(s) Start Date: 01/16/23 Status: Ordered dutasteride 0.5 mg oral capsule 0.5 mg = 1 cap, Oral, Daily, 0 Refill(s) Start Date: 01/16/23 Status: Ordered escitalopram 10 mg oral tablet 10 mg = 1 tab, Oral, Daily, 0 Refill(s) Start Date: 01/16/23 Status: Ordered flecainide 50 mg oral tablet 50 mg = 1 tab, Oral, every 12 hr, 0 Refill(s) Start Date: 01/16/23 Status: Ordered hydroCHLOROthiazide 12.5 mg oral tablet 12.5 mg = 1 tab, Oral, Daily, 0 Refill(s) Start Date: 01/16/23 Status: Ordered potassium citrate 10 mEq oral tablet, extended release 10 mEq = 1 tab, Oral, BID, 0 Refill(s) Start Date: 01/16/23 Status: Ordered pravastatin 20 mg oral tablet 20 mg = 1 tab, Oral, Daily, 0 Refill(s) Start Date: 01/16/23 Status: Ordered zolpidem 5 mg oral tablet 5 mg = 1 tab, Oral, every day at bedtime, PRN as needed for insomnia, 0 Refill(s) Start Date: 01/16/23 Status: Ordered Problem List Condition Confirmation Course Effective Dates Status H ealth Status Informant Anemia Confirmed Active Aortic root dilatation Confirmed Active BCC - Basal cell carcinoma of skin Confirmed Active BPH - benign prostatic hyperplasia Confirmed Active CD - Crohn's disease Confirmed Active Colonic polyp Confirmed Active Hearing impaired 1 Confirmed Active History of COVID-19 2 Confirmed 10/18/21 Active HTN - Hypertension Confirmed Active Leukopenia Confirmed Active Mitral regurgitation Confirmed Active Nephrolithiasis Confirmed Active BRITTANY - Obstructive sleep apnea 3 Confirmed Active PAF - Paroxysmal atrial fibrillation Confirmed Active Renal insufficiency Confirmed Active Vertigo Confirmed Active 1wears bilat aids 2mild resp sx 3wears cpap at [facility] Procedures Procedure Date Related Diagnosis Body Site Status Basal Cell Excision Frozen S ection (Right) 1 01/17/23 Completed Prostate excision Complet ed Small bowel resection Com pleted Transurethral resection - bl adder polypectomy Completed 1auto-populated from documented surgical case Vital Signs Most recent to oldest [Reference Range]: 1 2 Temperature Temporal Artery [36-38 Deg C ] 37.1 Deg C (01/17/23 5:07 PM) 36.5 Deg C (01/17/23 1:22 PM) Temperature Temporal Artery (DegF) [97.3-100 Deg F] 98.78 Deg F (01/17/23 5:07 PM) Peripheral Pulse Rate [60-100 bpm] 58 bp m *LOW* (01/17/23 5:07 PM) Heart Rate Monitored [60-100 bpm] 58 bpm *LOW* (01/17/23 1:22 PM) Respiratory Rate [12-24 br/min] 16 br/mi n (01/17/23 1:22 PM) Blood Pressure [90-140/60-90 mmHg] 176/8 8mmHg *HI* (01/17/23 5:07 PM) 164/80mmHg *HI* (01/17/23 1:22 PM) Mean Arterial Pressure, Cuff [65-140 mmH g] 117 mmHg (01/17/23 5:07 PM) Mean Arterial Pressure Cuff 113 mmHg (01/17/23 5:07 PM) Weight 98.000 kg (01/16/23 1:29 PM) Weight Dosing 98.000 kg (01/16/23 1:29 PM) Height 188.000 cm (01/16/23 1:29 PM) Height/Length Dosing 188.000 cm (01/16/23 1:29 PM) Social History Social History Type Response Tobacco Never tobacco user T obacco Use:. Sex History and physical note * YORDY Means: PERFORM, MODIFY Event Display: History and Physical Authored Date: [id number] ELENITA SILVERMAN :1945 Age:77 years Sex:Male Primary Care Physician: ELENITA PATTON MD Chief Complaint Preoperative history and physical History of Present Illness Elenita is a 77-year-old male patient presenting today for surgical excision of the right mormon basalcell carcinoma superficial and nodular type positive at base and periphery.?? This was biopsied initially by primary care/outside pathology.?? Past medical history is reviewed and significant for atrial fibrillation, aortic root dilation, type retention, Crohn's disease, sleep apnea and mitral regurg.?? Anesthesia was with local anesthesia only.?? He denies any new medications, allergies, medicalproblems or significant illness since last office visit 11/30/[address] Galvan in [place] office. Not currently on anticoagulation following prostate surgery with hematuria. Review of Systems Fatigue?? Negative.?? Fever?? Negative.?? Weight Loss?? Negative.?? Snoring?? Negative.?? Hoarseness?? Negative.? Cough?? Negative.??Rashes?? Negative.?? Eczema?? Negative.?? Headaches?? Negative.? Environmental allergies?? Negative.?? Hay Fever?? Negative.?? Reflux??positive.?? Obstructive sleep apnea: Positive. Physical Exam Vitals & Measurements HT:??188.000??cm?? WT:??98.000??kg?? GENERAL APPEARANCE:??The patient is awake, alert, and oriented and in no acute distress, Appears nutritionally sound, Healthy in appearance, Voice is strong, with no stridor or stertor, Handling secretions without difficulty.?PSYCH:??affect normal, good eye contact, oriented to person, oriented to place, oriented to time.?NEURO:??CN's II-XII grossly intact,?HEENT:??The patient is normocephalic with a normal facies with cranial nerves 2 through 12 bilaterally equal and intact. Pupils are equal and reactive to light with extraocular movements bilaterally equal and intact. There is no proptosis or enophthalmos,??ORAL CAVITY:, no trismus, tongue and floor of mouth are normal to inspection and palpation. Mucosa is moist and healthy throughout. the palate is intact and elevates symmetrically in midline,??OROPHARYNX:, Uvula midline, soft palate symmetric.?NECK:??There is no palpable lymphadenopathy.?HEART:??Irregularly irregular rhythm??consistent with atrial fibrillation and rhythm.?LUNGS:??clear to auscultation bilaterally, no wheezes/rhonchi/rales.?SKIN:??Prior??scar consistent with??biopsy site right mormon. ? Assessment/Plan 1.??Basal cell carcinoma of face??C44.310 There was a full discussion of all treatment options including conservative management, and surgical intervention. The patient has opted to proceed with surgical intervention. We have discussed risksand complications as it relates to the procedure and postoperative period, including but not limited to those listed on the consent. All of their questions were answered, consent was reviewed??from the office and??OR consent was signed. There is no history of any bleeding disorders or anesthesia complications. We will proceed. Problem List/Past Medical History Ongoing Anemia Aortic root dilatation BCC - Basal cell carcinoma of skin BPH - benign prostatic hyperplasia CD - Crohn's disease Colonic polyp Hearing impaired History of COVID-19 HTN - Hypertension Leukopenia Mitral regurgitation Nephrolithiasis BRITTANY - Obstructive sleep apnea PAF - Paroxysmal atrial fibrillation Renal insufficiency Vertigo Historical Cataract Procedure/Surgical History ???Prostate excision???Small bowel resection???Transurethral resection - bladder polypectomy Medications Inpatient No active inpatient medications Home cholestyramine 4 g/9 g oral powder for reconstitution, 1 packets, Oral, TID cyanocobalamin 1000 mcg/mL injectable solution, 1000 mcg= 1 mL, IM, every month DilTIAZem (Eqv-Cardizem CD) 180 mg/24 hours oral capsule, extended release, 180 mg= 1 cap, Oral, Daily dutasteride 0.5 mg oral capsule, 0.5 mg= 1 cap, Oral, Daily escitalopram 10 mg oral tablet, 10 mg= 1 tab, Oral, Daily flecainide 50 mg oral tablet, 50 mg= 1 tab, Oral, every 12 hr hydroCHLOROthiazide 12.5 mg oral tablet, 12.5 mg= 1 tab, Oral, Daily potassium citrate 10 mEq oral tablet, extended release, 10 mEq= 1 tab, Oral, BID pravastatin 20 mg oral tablet, 20 mg= 1 tab, Oral, Daily zolpidem 5 mg oral tablet, 5 mg= 1 tab, Oral, every night at bedtime, PRN Allergies Adhesive Bandage??(Rash) No Known Medication Allergies Social History Alcohol Current, Several times per day Electronic Cigarette/Vaping Electronic Cigarette Use: Never. Substance Use Never Tobacco Never tobacco user Tobacco Use:. Electronically Signed on 01/17/23 03:19 PM YORDY Means Patient Care team information Care Team Personnel Name: ABDI GUNN, ELENITA Stevens Position: No Access Member Role: Primary Care Physician Address: Address: [address] [place] [id number]- Care Team Related Persons Name: FARSHAD SILVERMAN
[2023-07-22 14:50] LABS: HGB 13.3 g/dL (13.5-17.5); MCH 31.8 pg (27.0-33.0); MCHC 34.1 % (32.0-36.0); MCV 93 fL (80-95); Platelet Count 155 10^3/uL (130-400); RBC 4.18 10^6/uL (4.36-5.78); RDW 12.4 % (11.8-14.1); RDW-SD 42.8 fL
[2023-07-22 15:20] LABS: Anion Gap 8.2 mmol/L (3-11); BUN 20 mg/dL (7-18); CO2 28.8 mmol/L (21.0-32.0); CREATININE 1.4 mg/dL (0.70-1.30); Calcium 9.1 mg/dL (8.5-10.1); Chloride 104 mmol/L (98-107); Estimated GFR 51.45 (mL/min/1.73m2); Glucose 83 mg/dL (74-106); Potassium 3.6 mmol/L (3.5-5.1); Sodium 141 mmol/L (136-145)
== END 2023-07-22 03:58 | disposition home or self-care (01) ==
LOC: LBO 03:57
PROVIDERS: PCP Family Medicine; Visit Provider Student in an Organized Health Care Education/Training Program
DX: M17.12 Unilateral primary osteoarthritis, left knee (principal); Z01.818 Encounter for other preprocedural examination
CPT/HCPCS: 36415; 80048; 85027; 73560; 77073

== ENCOUNTER 2023-07-22 16:02 | Outpatient (CLI) | payer MEDICARE, SELFPAY ==
--- NOTE | 2023-07-22 13:15 | DI.RAD_ITS ---
Exam(s) XR KNEE LT 1V XR STANDING ALIGNMENT EXAM: XR STANDING ALIGNMENT CLINICAL HISTORY: PREOP LEFT TKR. TECHNIQUE: 2D digital imaging was performed. Standing AP views were performed from the pelvis throu gh the ankles. COMPARISON: No exams were available for comparison FINDINGS: BONES: No acute fracture is present. No bony destructive lesion is seen. Leg length discrepancy: None. JOINTS: Knees: Severe narrowing of left medial femoral tibial joint space.Chondrocalcinosis bilateral ly. Mild narrowing medial femoral tibial joint space of right knee.. The ankle joints are unremarkable. The hip joints show moderate narrowing. SOFT TISSUE: Normal. IMPRESSION: Severe degenerative changes of the medial femoral tibial joint of the left knee. . No significant leg length discrepancy. DATA REPOSITORY: RADIATION DOSE DELIVERED:
== END 2023-07-22 16:03 | disposition home or self-care (01) ==
LOC: DIORS 16:03
PROVIDERS: PCP Family Medicine; Visit Provider Physician Assistant
DX: M17.12 Unilateral primary osteoarthritis, left knee (principal); Z01.818 Encounter for other preprocedural examination
CPT/HCPCS: 73560; 77073

== ENCOUNTER 2023-08-01 13:30 | Outpatient (CLI) | payer MEDICARE, SELFPAY ==
[2023-08-01 16:03] LABS: HCT 37.3 % (40.0-50.0); HGB 12.8 g/dL (13.5-17.5)
== END 2023-08-01 13:31 | disposition home or self-care (01) ==
LOC: LBO 08-02 13:30
PROVIDERS: PCP Family Medicine; Visit Provider Physician Assistant
DX: R31.0 Gross hematuria (principal)
CPT/HCPCS: 36415; 85014; 85018

== ENCOUNTER 2023-08-06 06:06 | Day surgery (SDC) | payer MEDICARE, SELFPAY ==
--- NOTE | 2023-08-05 17:52 | W.ANESPRE ---
General Info Date of Service Date Performed: 08/06/23 Height: 6 ft 2 in Weight: 100.698 kg Body Mass Index (BMI): 28.5 Surgical Procedure: Operation Date: 08/06/23 07:40 Proposed Procedure Side Surgeon p Knee Total Arthroplasty, Cementless CR Left Pee Loera MD Meds Allergies and Home Medications Allergies Allergy/AdvReac Type Severity Reaction Status Date / Time paper tape AdvReac Mild Uncoded 08/06/23 06:18 Home Medication Medication Instructions Recorded cholestyramine (with sugar) 4 gram 4 gm PO TID 06/29/19 oral powder (Questran) cyanocobalamin (vitamin B-12) 1,000 mcg PO QMONTH 06/29/19 1,000 mcg capsule flecainide 50 mg tablet 50 mg PO BID 06/29/19 pravastatin 20 mg tablet 20 mg PO QHS 06/29/19 (Pravachol) zolpidem 5 mg tablet (Ambien) 5 mg PO QHS PRN 06/29/19 pH test #100 ea 11/13/19 diltiazem HCl 180 mg capsule,24 180 mg PO DAILY #90 caps 11/29/20 hr,extended release (Tiazac) dutasteride 0.5 mg capsule 0.5 mg PO DAILY 11/13/22 (Avodart) hydrochlorothiazide 12.5 mg capsule 25 mg PO DAILY 03/19/23 escitalopram oxalate 10 mg tablet 5 mg PO DAILY 04/09/23 (Lexapro) tadalafil 5 mg tablet 5 mg PO DAILY 04/09/23 potassium citrate 10 mEq (1,080 See Rx Instructions .Route 08/05/23 mg) tablet,extended release .COMPLEX #200 tabs Current Visit Medications: Current Medications Generic Name Dose Route Start Last Admin Trade Name Freq PRN Reason Stop Dose Admin Acetaminophen 1,000 mg 08/06/23 06:00 Acetaminophen 500 Mg Tab PO 09/05/23 05:59 PREOP COREY Celecoxib 400 mg 08/06/23 06:00 Celecoxib 200 Mg Cap PO 09/05/23 05:59 PREOP COREY Gabapentin 300 mg 08/06/23 06:00 Gabapentin 300 Mg Cap PO 09/05/23 05:59 PREOP COREY Tranexamic Acid 1,000 mg/ 60 mls @ 360 mls/hr 08/06/23 06:00 Sodium Chloride IVPB 09/05/23 05:59 PREOP COREY Ringer's Solution 1,000 mls @ 80 mls/hr 08/06/23 06:00 IV 08/06/23 23:59 INFUSION COREY Cefazolin Sodium/Dextrose 2 gm in 50 mls @ 100 mls/hr 08/06/23 06:00 Ancef Duplex IVPB 08/06/23 23:59 PREOP COREY IV Miscellaneous Supplies 1 each 08/06/23 06:00 Iv Access IV 08/06/23 23:59 DIRECTED COREY Sodium Chloride 0 ml 08/06/23 06:00 Normal Saline Flush 10 Ml Syr IV 08/06/23 23:59 PRN PRN Sodium Chloride 0 ml 08/06/23 06:00 Normal Saline 10 Ml Vial IJ 08/06/23 23:59 DIRECTED PRN Sterile Water 0 ml 08/06/23 06:00 Water,Injection,Sterile 10 Ml Vial IJ 08/06/23 23:59 DIRECTED PRN PFSH Active Problems Active Problems: Problem Status Onset Code Degenerative arthritis of left knee M17.12 BPH (benign prostatic hyperplasia) N40.0 Hypertension I10 Vitamin B 12 deficiency E53.8 Crohn's disease K50.90 Alcohol use Z72.89 BRITTANY (obstructive sleep apnea) G47.33 PAF (paroxysmal atrial fibrillation) I48.0 Ascending aortic aneurysm I71.2 Gross hematuria R31.0 Hydronephrosis, right N13.30 History of resection of terminal ileum Z98.890, Z90.49 PAF (paroxysmal atrial fibrillation) I48.0 Sensorineural hearing loss of both ears H90.3 Therapeutic drug monitoring Z51.81 Basal cell carcinoma C44.91 Medical History Medical History Renal insufficiency Vertigo Depression Hearing impairment Mitral regurgitation Leukopenia Trochanteric bursitis Erectile dysfunction Sleep apnea Insomnia Inguinal hernia Cataract Aortic root dilation Actinic keratitis Subcutaneous mass of left forearm History of colon polyps Anemia Renal calculus, right Chronic insomnia Blurred vision Nephrolithiasis Surgical History Surgical History Left inguinal hernia Previous back surgery remove L4 H/O knee surgery bilat - open mensicus 1950s Hx of colonoscopy (~11/11/20) Status post laser lithotripsy of ureteral calculus Hx of cystoscopy History of colectomy Tobacco Smoking/Tobacco Use Status: Former Tobacco Use Alcohol Alcohol Intake: current Alcohol intake frequency: 3 or more drinks per day Alcohol type: wine Substance Use Substance use: Never Substance use type: does not use Vital Signs and Lab Results Vital Signs Most Recent Vital Signs in EMR: Temp Pulse Resp BP Pulse Ox 36.3 C L 55 L 14 166/79 H 95 08/06/23 06:28 08/06/23 06:28 08/06/23 06:28 08/06/23 06:28 08/06/23 06:28 Lab Results Blood Type / Crossmatch: No Data to Display Complete Blood Count: White Blood Count 6.70 10^3/uL (4.4-10.8) 07/22/23 14:44 Red Blood Count 4.18 10^6/uL (4.36-5.78) L 07/22/23 14:44 Hemoglobin 12.8 g/dL (13.5-17.5) L 08/01/23 15:50 Hematocrit 37.3 % (40.0-50.0) L 08/01/23 15:50 Platelet Count 155 10^3/uL (130-400) 07/22/23 14:44 Complete Metabolic Panel: Sodium 141 mmol/L (136-145) 07/22/23 14:44 Potassium 3.6 mmol/L (3.5-5.1) 07/22/23 14:44 Chloride 104 mmol/L (98-107) 07/22/23 14:44 Carbon Dioxide 28.8 mmol/L (21.0-32.0) 07/22/23 14:44 BUN 20 mg/dL (7-18) H 07/22/23 14:44 Creatinine 1.4 mg/dL (0.70-1.30) H 07/22/23 14:44 Est GFR (CKD-EPI 2020) 51.45 (mL/min/1.73m2) 07/22/23 14:44 Calcium 9.1 mg/dL (8.5-10.1) 07/22/23 14:44 Glucose 83 mg/dL (74-106) 07/22/23 14:44 Liver Function Panel: No Data to Display Coagulation Panel: No Data to Display Cardiac Panel: No Data to Display Arterial Blood Gas: No Data to Display Venous Blood Gas: No Data to Display Pancreas Panel: No Data to Display Thyroid Panel: No Data to Display Infectious Disease: No Data to Display Blood Cultures: No Data to Display Toxicology Panel: No Data to Display Imaging and Studies Imaging and Studies Study information below may be from another EMR and interpreted by another provider. Please see original notes in EMR for more complete details. EKG Summary: 04/10: sinus, prob LAE. Stress Test Summary: 02/07: 7 METS 65%peak HR achieved. MPI Conclusion Normal myocardial perfusion without evidence of ischemia or prior infarction EF 52%, normal wall motion Echocardiogram Summary: 03/10: LVEF 65%, moderate MR, moderate TR, ascending Ao 4.45 cm. RVSP 32 mmhg Anesthesia Assessment and Plan Anesthesia History Personal History: No History of Anesthesia Complications Family History: No Family History of Anesthesia Complications Exercise Tolerance Exercise Tolerance: Metabolic Equivalents>4 Cardiac & Pulmonary Exam Cardiac Exam: Normal S1/S2 Heart Sounds Pulmonary Exam: Clear Bilateral Breath Sounds Implantable Cardiac Device Does patient have a Pacemaker or an ICD?: No Airway Exam Known Difficult Airway: No Mallampati Class: 3 Mouth Opening: Normal (> 3cm) Thyromental Distance: Greater than 3 cm Neck Range of Motion: Full ROM Neck Circumference: Normal Teeth Condition: Normal Dentition ASA Classification ASA Score: ASA 3 Emergency Case?: No NPO Status NPO Status: NPO Clears >2 hours, Solids >8 hours Anesthesia Plan Resuscitation Status: Full Code Anesthesia Technique: Spinal Anesthesia Airway Planned: Natural Airway Pain Management: Surgeon and patient request nerve block Monitors Used: Standard Monitors Preoperative Comments:: 77 yo male for TKA. Sig PMHx: HTN (HCTZ), pAFib (flecainide, dilt, no anticoag due to hematuria), ascending Ao aneurysm, BRITTANY, discectomy 20+ years ago, former smoker (1959), daily EtOH. Previous Anes: - TURBT/stones, glide 3 grade 1 (after failed igel LMA 4) - hernia, igel 4. - colo, prop, natural airway, no issues. - cysto x , natural airway, no issues.
[2023-08-06] VITALS (12 sets, daily range): BP systolic 158–183; BP diastolic 63–90; PULSE 50–62; RESP 14–22; TEMP 36.3–36.7; O2SAT 94–98; BMI 28.5
[2023-08-06] MEDS: Acetaminophen 500 MG TAB 1000 MG PO (06:33)
[2023-08-06] MEDS: Gabapentin 300 MG CAP PO (06:33)
[2023-08-06] MEDS: Celecoxib 200 MG CAP 400 MG PO (06:33)
[2023-08-06] MEDS: Lactated Ringers 1,000 ML 80 ML IV (06:50)
--- NOTE | 2023-08-06 07:20 | W.PM.DS.N ---
Date of service: 08/06/23 Time of Service: 07:25 DS: Diagnosis Discharge Diagnosis (1) Degenerative arthritis of left knee: Status: Resolved Discharge Plan Disposition Patient Disposition: Home Condition: Good Discharge Details Reason For Visit: Left knee DJD Attending Provider: Pee Loera Primary Care Provider: Nathan Diaz Warren Meds and New Rx's Prescriptions: New acetaminophen 500 mg tablet 1,000 mg PO Q8H PRN Qty: 90 0RF Rx Instructions: Take two tablets up to every 8 hours as needed for pain celecoxib [Celebrex] 200 mg capsule 200 mg PO BID PRNQty: 60 0RF Rx Instructions: Take one tablet twice daily for pain and inflammation docusate sodium [Colace] 100 mg capsule 100 mg PO BID Qty: 30 0RF pantoprazole 40 mg tablet,delayed release (DR/EC) 40 mg PO DAILY 14 Days Qty: 14 0RF dexamethasone 4 mg tablet 4 mg PO DAILY Qty: 2 0RF Rx Instructions: Take one tablet once daily for two days gabapentin 300 mg capsule 300 mg PO QHS Qty: 14 0RF Rx Instructions: Take one tablet at bedtime oxycodone 5 mg tablet 5 mg PO Q4H PRNQty: 18 0RF Rx Instructions: Take one tablet up to every 4 hours as needed for severe postoperative pain aspirin 81 mg tablet,delayed release (DR/EC) 81 mg PO ONCE 30 Days Qty: 30 0RF Continued dutasteride [Avodart] 0.5 mg capsule 0.5 mg PO DAILY (DME) pH test Strip See Rx Instructions .ROUTE .MEDSUPPLY Qty: 100 12RF Rx Instructions: As directed pravastatin [Pravachol] 20 mg tablet 20 mg PO QHS flecainide 50 mg tablet 50 mg PO BID cyanocobalamin (vitamin B-12) 1,000 mcg capsule 1,000 mcg PO QMONTH cholestyramine (with sugar) [Questran] 4 gram powder 4 gm PO TID zolpidem [Ambien] 5 mg tablet 5 mg PO QHS PRN diltiazem HCl [Tiazac] 180 mg capsule,extended release 24 hr 180 mg PO DAILY Qty: 90 3RF hydrochlorothiazide 12.5 mg capsule 25 mg PO DAILY Patient Comments: pt .reports taking BID tadalafil 5 mg tablet 5 mg PO DAILY escitalopram oxalate [Lexapro] 10 mg tablet 5 mg PO DAILY potassium citrate 10 mEq (1,080 mg) tablet extended release See Rx Instructions .ROUTE .COMPLEX Qty: 200 3RF Dose Instruction: TAKE 1 TABLET BY MOUTH TWICE DAILY FOR STONE PREVENTION Rx Instructions: TAKE 1 TABLET BY MOUTH TWICE DAILY FOR STONE PREVENTION Discharge Instructions Additional Instructions: Total Knee Discharge Instructions Activity: The most important activity is to walk and to work on gentle motion (both flexion and extension). You should try to take short walks a few times a day. It is important that when resting you work on keeping the knee straight. Avoid putting a pillow behind the knee as this will encourage flexion. Work on range of motion exercises as provided by Physical Therapy. - Start outpatient physical therapy within 2 weeks. - You should wear the JORGE hose on both legs for 2 weeks. You may remove these at night. You may also use any compression sock in place of the JORGE hose. - Utilize [employer] to review exercises, see videos on exercises and obtain basic information pertaining to your surgery and your recovery. Dressing: Remove the Estevan wrap by 2 days after your surgery and put on the JORGE stocking given to you from the hospital. Keep the surgical dressing (underneath the ESTEVAN wrap) in place for at least one week. After the first week it may be removed and replaced with light gauze and tape or nothing. The wound and dressing may get wet after 3 days but avoid soaking the dressing or otherwise it will need to be changed. Many people prefer covering the dressing with cling wrap (saran wrap) to minimize it from getting soaked. If it gets wet, just pat dry. If it starts to peel off then it will need to be changed. Medications: - You should take Tylenol and anti-inflammatory Celebrex as your primary pain control medications. If the Celebrex is too expensive or not covered, please call the office for another alternative (Advil/Ibuprofen or Naproxen/Aleve) - You have been prescribed a stronger pain medication Oxycodone for breakthrough pain, take as needed as prescribed. - You have also been prescribed a stomach acid reduction agent Pantoprozole to help reduce stomach acid and reflux. - You have been prescribed Gabapentin to take at night for restlessness and nerve pain. - You will be taking Aspirin 81mg once a day for DVT prevention unless instructed otherwise. - You have also been prescribed Decadron to take to control post-operative nausea and pain. You will start this tomorrow. - If you have constipation you should take Colace (which has been prescribed) or Miralax (which is available [id number]). It takes most people 3-4 days to have a bowel movement. Follow-up: 2 weeks If you have any acute concerns or questions, please do not hesitate to contact the office at [phone]. You may contact Dr. Loera with any questions after hours through the hospital at [phone] or on his cell phone at [phone]. Stand Alone Forms: Anesthesia Discharge Inst., Anes.Nerve Block Instructions, Mark Maxwell (DSU) Referrals: Pee Loera MD [ [facility] STAFF PHYSICIAN] - Equipment/Supplies: Walker Activity:: Elevate Remove Dressings/Wound Care:: Do Not Remove Shower/Bathe:: 72 hours and Cover Diet:: As Tolerated Discharge Orders Discharge Orders: Discharge Order (Routine); Ordered 08/06/23 Ordered By: Justine Nagel Discharge Data Discharge Date/Time-TO BE ENTERED AT DEPARTURE: 08/06/23 13:22 DS: Summary Time Spent with Patient providing and/or coordinating discharge services: Less than 30 minutes Status at Discharge Functional status at discharge: uses cane/walker Overall status at discharge: patient is progressing back to baseline Mental Status: mental status grossly normal Speech and Movement: speech and movement normal Mood: congruent mood Affect: normal affect Exam Psych Mental Status: mental status grossly normal Speech and Movement: speech and movement normal Mood: congruent mood Affect: normal affect DS: Data Vitals/I&O Vitals and I&O: Vital Signs Temperature 97.3 F L 08/06/23 06:28 Pulse 55 L 08/06/23 06:28 Respiratory Rate 14 08/06/23 06:28 Respiratory Depth Normal 08/06/23 06:28 Blood Pressure 166/79 H 08/06/23 06:28 Pulse Oximetry 95 08/06/23 06:28 Oxygen Delivery Method Room Air 08/06/23 06:28 Oxygen Flow Rate 0 08/06/23 06:28 Pain Level 3 08/06/23 06:28 Intake & Output 08/05/23 08/05/23 08/06/23 11:59 23:59 11:59 Weight 222 lb 0.017 oz 220 lb 10.923 oz PFSH All Active Problems (Updated 08/06/23 @ 14:13 by Victor M Lujan RN) History of total left knee replacement (Acute 08/06/23) BPH (benign prostatic hyperplasia) (Chronic) Hypertension (Chronic) Vitamin B 12 deficiency (Acute) Crohn's disease (Chronic) Alcohol use (Acute) BRITTANY (obstructive sleep apnea) (Chronic) PAF (paroxysmal atrial fibrillation) (Acute) Following up with Dr. Bauer in 3 weeks per pt. 10/16/19 Ascending aortic aneurysm (Acute) Gross hematuria (Acute) Hydronephrosis, right (Acute) History of resection of terminal ileum (Acute) PAF (paroxysmal atrial fibrillation) (Acute) Sensorineural hearing loss of both ears (Acute) Therapeutic drug monitoring (Acute) flecainide Basal cell carcinoma (Acute) face Medical History (Updated 08/06/23 @ 14:13 by Victor M Lujan RN) Renal insufficiency Vertigo Depression Hearing impairment Mitral regurgitation Leukopenia Trochanteric bursitis Erectile dysfunction Sleep apnea Insomnia Inguinal hernia Cataract Aortic root dilation Actinic keratitis Subcutaneous mass of left forearm History of colon polyps Anemia Renal calculus, right Chronic insomnia Blurred vision Nephrolithiasis Surgical History (Updated 08/06/23 @ 14:13 by Victor M Lujan RN) Left inguinal hernia Previous back surgery remove L4 H/O knee surgery bilat - open mensicus 1949s Hx of colonoscopy (~11/11/20) Status post laser lithotripsy of ureteral calculus Hx of cystoscopy History of colectomy Social History Smoking/Tobacco Use Status: Former Tobacco Use Quit Date: 08/19/1959 Tobacco: How many years used: 5 Smoking risk assessment performed?: Yes Alcohol Intake: current Alcohol Intake frequency: 3 or more drinks per day Alcohol type: wine Drug use: Never Substance use type: does not use Details: alcohol: t-3, 1.5 glasses Housing: house What type of physical activity do you participate in: swimming Duration: 15-30 minutes/day Frequency: 5-6 times per week Do you feel safe at home: Yes Do you feel safe in your relationship?: Yes Additional Social history: uanble to assess privately Time Spent with Patient Time Spent with Patient: <45 minutes Time was spent: preparing to see the patient(eg.review tests), ordering medications,tests, procedures, indepentently interpreting results and counseling the patient
[2023-08-06] MEDS: ceFAZolin 2 GM/50 ML BAG IVPB (07:38)
--- NOTE | 2023-08-06 07:44 | ANES.NERVE_ITS ---
Nerve Block Single Injection Procedure Date and Time Date Performed: 08/06/23 Procedure Start: 07:18 Location Where Procedure Performed Procedure Location: Day Surgery Unit Reason Performed: Postoperative Analgesia Requesting Provider: Pee Loera Timeout Performed Timeout Performed: Yes Monitoring Used ECG, Blood Pressure and SpO2 Sterility Sterility: Hand Hygiene, Surgical Cap, Surgical Mask, Sterile Gloves and Chlorhexidine Sedation Given During Procedure Sedation Given (Indicate Dose Given): No Sedation given Patient Mental Status Patient Mental Status: Awake Nerve Block 1st Nerve Block: Laterality: Left Block Type: Adductor Canal Ultrasound Image Saved?: Yes Needle / Catheter Used: 100mm SonoPlex II Local Anesthetic Bolus (Indicate Dose Given): Lidocaine used for local infiltration of skin, Injected in 3-5ml increments after negative blood aspiration and Bupivacaine 0.25% Dose:: 10 mL Additives (Indicate Dose Given): None Ultrasound: Sterile probe cover and gel used Nerve Stimulator: Supplement to Ultrasound use and No twitch or parasth esia noted < 0.5 mA Paresthesia: None Procedure Tolerated: No Complications Procedure Outcome: Successful Performed By: Mustapha Duffy 2nd Nerve Block: Laterality: Left Block Type: Other (anterior femoral cutaneous. ) Ultrasound Image Saved?: Yes Needle / Catheter Used: 100mm SonoPlex II Local Anesthetic Bolus (Indicate Dose Given): Bupivacaine 0.25% Dose:: 5 mL Additives (Indicate Dose Given): None Ultrasound: Sterile probe cover and gel used Nerve Stimulator: Supplement to Ultrasound use and No twitch or parasthesia noted < 0.5 mA Paresthesia: None Procedure Tolerated: No Complications Procedure Outcome: Successful Performed By: Mustapha Duffy
--- NOTE | 2023-08-06 09:14 | ROE_ITS ---
Date of service: 08/06/23 Time of Service: 07:45 Operative Note Operative Note DATE OF PROCEDURE: 08/06/23 PRE-OP DIAGNOSIS: Left Knee Osteoarthritis POST-OP DIAGNOSIS: same PROCEDURE: Left Total Knee Replacement SURGEON: Pee Loera DUMP GROUNDS CHECKER: Justine Nagel ANESTHESIA TYPE: Spinal Refer to Anesthesia Record ESTIMATED BLOOD LOSS: 300 PATHOLOGY: none sent TOURNIQUET TIME: 0 COMPLICATIONS: None Patient was transported to: PACU Patient's condition: stable Implants: 1. Depuy Attune Cementless Cruciate Retaining Femoral Component, Size 7 2. Depuy Attune Cementless Fixed Bearing Tibial Component, Size 8 3. Depuy Attune 7x6 CR/FB Poly 4. Depuy Attune Patellar Component, Size 41 Indications: I have seen Nathan in clinic for symptoms of knee arthritis, confirmed with radiographic findings. He has exhausted nonoperative methods and was having s ignificant limitations in daily function and desired better function and less pain. I discussed the technical details of a knee replacement. I explained the risks of the procedure to include, but not limited to, bleeding, infection, pain, stiffness, fracture, damage to nerves and vessels, damage to muscles and tendons, loosening, need for repeat procedure, blood clot and cardiopulmonary demise. Despite these risks, Nathan elected to proceed. Findings: There was significant signs of arthritis throughout the knee involving all 3 compartments. Procedure Description: Nathan was greeted in the preoperative holding area where the correct side was identified and marked. The consent was reviewed with the patient and signed. The history and physical was updated. All questions were answered. Preoperative medications were administered: Acetaminophen 1000mg, Celebrex 400mg, and Gabapentin 300mg. An adductor canal block was then administered by the anesthesia team in the DSU. Nathan was taken back to the operating room. A spinal anesthestic was then administered. The patient was placed into the supine position on the operating room table. A nonsterile tourniquet was placed high onto the leg but only used for cementing. Posts were placed for positioning during the procedure. All bony prominences were well padded. Prophylactic antibiotics in the form of Cefazolin were administered. 1g of Tranxemic Acid was given intravenously within 30 minutes of incision. The left leg was then prepped with Chloraprep and draped in a standard fashion with impervious stockinette. A second prep with Chloraprep was performed prior to application of Iodine impregnated skin protection. A timeout to confirm correct identity, side and site, procedure, allergies, anesthesia, and medical concerns was performed. With the knee in some flexion, a midline incision was made overlying the knee. Full thickness skin flaps were raised once the extensor mechanism was encountered. These were raised medially and laterally. Any bleeding was controlled with electrocautery. Once the extensor mechanism was fully exposed, a medial parapatellar arthrotomy was performed in a flexed position. All bleeding from the arthrotomy and the geniculate arteries was coagulated. A medial subperiosteal peel was performed with electrocautery to the midcoronal plane. The fat pad was removed while keeping the patellar tendon protected. The anterior distal femur synovium was removed for later visualization. The ACL and PCL were resected and the anterior horn of the lateral meniscus was transected. The knee was then flexed with the patella everted. Large osteophytes from the tibia were removed. Large o steophytes from the femur were removed. Using a step drill, and based on preoperative templating, the femoral canal was entered. This was done with a step drill without any difficulty. The intram edullary distal femoral cut guide was inserted, set to a 6 degree valgus cut and 9mm cut thickness. The distal femoral cut guide was then held in position and pinned. With the soft tissues protected, the distal cut was performed. This was passed over a few times to ensure a planar cut. I then turned attention to the tibia. The extramedullary guide was placed onto the leg. The distal aspect was slid medial to adjust for position of center of ankle and stay in line with shaft of the tibia. Approximately 3-5 degrees of posterior slope was kept in the proximal cutting guide. The center of the guide was aligned with the PCL. The stylus was used to assess cut thickness. The medial side, most involved side, was set for a 4mm cut. This was then held in position and pinned into place wi th 2 additional pins and a cross pin for stability. The medial and lateral collateral ligaments were protected and the cut was performed. With this completed, it was assessed and noted to be of appropriate dimensions. The guide was removed. A spacer block was inserted and the knee was brought into extension. The 6mm spacer block provided full extension, without hyperextension and with stability of both the medial and lateral collateral ligaments was assessed. The pins from the femur and the tibia were then removed. The distal femur was then sized. The anterior stylus was placed onto the lateral ridge of the anterior femur. This indicated a size 7 femur. The external rotation of the guide was adjusted to 0 degrees to match the epicondylar axis, perpendicular to Kerry?s line. The 4-in-1 cutting guide was the placed. The posterior medial femur cut was evaluated and appeared of good thickness. The spacer block was inserted underneath the cutting guide and stability was confirmed in 90 degrees of flexion. An bry wing was used to confirm appropriate position of the anterior cut to avoid notching. This cutting guide was ensured to be flush on the cut surface and then pinned into place with headed pins. While protecting the soft tissues, quad tendon, and collateral ligaments, the anterior and posterior cuts were performed with a saw. The central two pins were removed and the posterior and anterior chamfers were cut next. The notch-cutting guide was placed. This was pinned to lateralize the femoral component as much as possible while keeping it flush on the cut surface. This was then pinned into position. A reciprocating saw was used to make the notch cut. A rasp smoothed the cut surfaces. The medial and lateral menisci were removed. A trial femoral component was then inserted, impacted down to the cut surfaces, and the lug holes were drilled. A provisional trial tibial component was placed and the knee was brought through range of motion. There was noted to be excellent extension and flexion. There was no significant instability. The patella was tracking without thumbs. A size 6mm polyethylene component provided the best range of motion and stability with less than 2mm gapping with medial and lateral stress and full extension without significant hyperextension. The tibial cut surface was fully exposed. The tibia was then sized as a 8. The tibia had been previously marked during trialing to correspond to the center of the tibial component to help with rotation. The trial was aligned to this joel, approximately rotated to the medial 1/3rd of the tibial tubercle. The trial was pinned into place. The tibia was prepared with a reamer and a keel punch and lug holes. The knee was then brought into extension and the patella was measured as 34mm. Using the patellar clamp and cut guide, this was resected to a flat surface with at least 13mm of thickness remaining. The size 41 patella fit the best. This was oriented and then clamped into position. The lugs were drilled. The trial components were removed. The final components were opened on the back table. The periosteal and capsular tissues, especially posteriorly, around the knee were then systematically injected with a periarticular cocktail consisting of 246mg of Ropivacaine, 0.5mg of Epinephrine, 0.08mg of Clonidine, and 30mg of Ketorolac, diluted to 100cc. On the back table, with the implants opened, the cement was mixed. One batch of high viscosity cement was prepared with vacuum assistance. After the cement was ready a small amount was placed on the cut surface of the patella and the patellar button was clamped into position and held. While the cement was hardening, the cementless knee components were placed. Starting with the tibial component, the tibia was subluxed anteriorly and the lug holes of the component were lined up. The tibia was then impacted with an impactor and mallet until the tibial component was in contact with the tibia. The final polyethylene component was inserted. Then, the femoral component was inserted. The lug holes were aligned and the component was impacted into position. The knee was irrigated with Irrisept Chlorhexadine solution. This was allowed to sit in the knee for 3 minutes and then it was irrigated out with saline. After the cement had finally cured, approximately 15min, the clamp was removed from the patella and the knee was taken through range of motion. The patella was tracking with a no-thumbs technique. The capsule was then reapproximated with a No. 1 Vicryl at multiple locations. The capsule was finally closed with a No. 2 Stratafix, barbed suture. The second dosing of 1g TXA was started. Deep tissues were then reapproximated with 0 Vicryl and 2-0 Vicryl. The skin was closed with a running 3-0 Monocryl in a subcuticular fashion. This was reinforced with skin glue. A Mepilex silver dressing was applied along with a [id number] ALLISON wrap. A CryoCuff was applied. Nathan was transferred to the hospital bed without difficulty an suffering no apparent complication. Nathan has a good prognosis. Physical therapy will start today and without restrictions, weight-bearing as tolerated. Aspirin 81mg Daily will be used for DVT prophylaxis.
[2023-08-06] MEDS: fentaNYL 100 MCG/2 ML VIAL IVP ×2 (10:00→10:10)
--- NOTE | 2023-08-06 10:57 | W.ANESPOSTOP ---
Postoperative Evaluation Date, Time and Location Date Performed: 08/06/23 Time Performed: 10:24 Patient Location: PACU Vital Signs Most Recent Imported Vital Signs: Most Recent Vital Signs Temp Pulse Resp BP Pulse Ox 36.3 C L 55 L 16 170/90 H 96 08/06/23 10:31 08/06/23 10:31 08/06/23 10:31 08/06/23 10:31 08/06/23 10:31 Pain Score Most Recent Pain Score: Most Recent Pain Score Pain Level 4 08/06/23 10:31 Assessment Mental Status: Awake (Alert & Oriented to Patient Baseline) Airway and Respiratory Function: Patent airway with normal (patient baseline) respiratory exam Cardiovascular Function: Hemodynamically Stable Hydration Status: Adequately Hydrated Nausea & Vomiting: No Nausea or Vomiting Pain: Pain is tolerable per patient Peripheral Nerve Block: Regional nerve block not resolved at time of post operative discharge
[2023-08-06] MEDS: oxyCODONE 5 MG TAB PO (11:03)
--- NOTE | 2023-08-06 11:40 | IN_ITS ---
PT Notes Visit Reasons: Left knee DJD Physical Therapy Day Surgery Initial Evaluation Date: 08/06/2023 Referring Doctor: YORDY Wright PT Orders: PT CONSULT: S/P Ortho Surgery Precautions: WBAT on the L LE with AD. Patient Profile/Admitting Diagnosis: Nathan is a 77-year-old male with degenerative joint disease of the left knee and status post left total knee arthroplasty on postoperative day 0. PMHX: Medical History (Updated 07/19/23 @ 14:06 by Justine Nagel) Renal insufficiency Vertigo Depression Hearing impairment Mitral regurgitation Leukopenia Trochanteric bursitis Erectile dysfunction Sleep apnea Insomnia Inguinal hernia Cataract Aortic root dilation Actinic keratitis Subcutaneous mass of left forearm History of colon polyps Anemia Renal calculus, right Chronic insomnia Blurred vision Nephrolithiasis Surgical History (Updated 07/22/23 @ 13:49 by Justine Nagel) Left inguinal hernia Previous back surgery remove L4 H/O knee surgery bilat - open mensicus 1950s Hx of colonoscopy (~11/11/20) Status post laser lithotripsy of ureteral calculus Hx of cystoscopy History of colectomy Social History/Home Situation: Lives with in a private home with 2 steps to enter through the garage. Independent with all aspects of ADLs prior to surgery although has had increasing difficulty to worsening pain from DJD. Equipment Owned/DME: [facility] Subjective: Reports 2?3/10 pain in the left knee at rest and with walking. Denies headache, chest pain, and lightheadedness throughout session. Objective: General Observation: Resting in bed. ALLISON wraps to left LE. Cryo/Cuff to left knee. TEDS to right leg. present in room throughout session. Mental Status: A and O x 4 Pain: As above ROM: Right Lower Extremity: Hip flexion WFL. Hip abduction WFL. Knee flexion WFL. Ankle dorsiflexion WFL. Ankle plantarflexion WFL. Left Lower Extremity: Hip flexion WFL. Hip abduction WFL. Knee flexion 0 to 110 degrees. Ankle dorsiflexion WFL. Ankle plantarflexion WFL. Strength: Right Lower Extremity: Hip flexors 5/5. Hip abductors 5/5. Knee flexors 5/5. K nee extensors 5/5. Ankle dorsiflexors 5/5. Ankle plantarflexors 5/5. Left Lower Extremity:Hip flexors 4/5. Hip abductors 4/5. Knee flexors 3-/5. Knee extensors 4-/5. Ankle dorsiflexors 5/5. Ankle plantarflexors 5/5. Sensation: Intact as to pain and light pressure in bilateral lower extremities Bed Mobility/Transfers: Minimal cueing provided for use of B hands as needed for support, movement sequence, Ad management, and and posture to reduce fall risk and minimize pain report Supine to sit stand by assist Sit to stand contact-guard assist with FWW Stand to sit standby assist Bed to chair standby assist Gait: Facilitated safe and correct performance of level surface ambulation covering a distance of 150 feet using front-wheeled walker with reciprocal step through heel-toe gait pattern with a standby assist provided requiring minimal verbal cueing for AD management, posture, increased knee flexion on the left during swing phase, and overall safety. Stairs: Guided patient with safe and correct negotiation of 6 x 4 inch steps and 4 x 6 inch steps while holding onto bilateral rails with step to gait pattern requiring only standby assist without report of increased pain in the left knee throughout. Balance: Static Sitting: Normal Dynamic Sitting: Normal Static Standing: Fair Dynamic Standing: Fair Special Tests: Mobility Limitations Standardized Measure [facility] AM-PAC 6 clicks Basic Mobility Inpatient Short Form: Raw Score: 23 CMS Score: 11% deficit Informed Consent/Education: Patient instructed in purpose of PT consult. Packet containing TKA exercise protocol has been given to patient. Education and training on initial set of exercises that can be done at home have been completed with patient. Trained patient with correct performance of exercises below to maximize motor control, joint flexibility, soft tissue extensibility of the L knee musculature: Access Code: [email or web address] URL: [email or web address] Date: 08/06/2023 Prepared by: Cece Huerta Exercises - Supine Quad Set - 1 x daily - 7 x weekly - 1 sets - 10 reps - 5 hold - Supine Heel Slide - 1 x daily - 7 x weekly - 1 sets - 10 reps - 5 hold - Supine Ankle Pumps - 1 x daily - 7 x weekly - 1 sets - 10 reps - 5 hold - Small Range Straight Leg Raise - 1 x daily - 7 x weekly - 1 sets - 10 reps - 5 hold - Seated March - 1 x daily - 7 x weekly - 1 sets - 10 reps - 5 hold Assessment: Patient requires the use of a front wheeled walker for all mobility ADL performance to maximize independence and reduce fall risk. Patient presents with clinical signs and symptoms consistent with current/admitting diagnoses that have resulted to mobility limitations, gait instability, generalized weakness, and impairment of motor control as demonstrated by the following impairment level findings: 1. Decreased strength to left knee major muscle groups 2. Impaired standing balance 3. Limitation of joint range of motion in left knee Impairments are contributing to the following functional limitations: 1. Inability to safely ambulate without assistive device 2. Increase completion time for mobility ADL performance 3. Increased fall risk Patient is assessed as a 49077 complexity based on the following: History: 77 [id number] with impairment level findings, functional limitations, and past medical history as indicated above Examination: Demonstrable impairment in strength, balance, and mobility level with underlying impairments and functional limitations as documented above Presentation: Evolving Decision Makin moderate complexity Goals: N/A. PT evaluation and 1-2 treatment sessions only for functional mobility training using recommended AD and for HEP instruction. Plan of Care/Treatment Plan: N/A. PT evaluation and 1-2 treatment session only for functional mobility training using recommended AD and for HEP instruction. DISCHARGE RECOMMENDATIONS: Home when medically cleared by orthopedic surgeon. Recommend outpatient PT services in order to optimize functional mobility outcomes and facilitate return to independent community ambulation without an assistive device. TREATMENT CODE/TIME: 51515 x 20 minutes for 1 unit, 65356 x 15 minutes for 1 unit beginning at 11:40 AM thank you for the opportunity to participate in the care of this patient. Cece Huerta PT, DPT, CLT [facility] [place], [place] . Thank you for the opportunity to participate in the care of this patient.
== END 2023-08-06 13:22 | disposition home or self-care (01) ==
PROVIDERS: PCP Family Medicine; Visit Provider Student in an Organized Health Care Education/Training Program
PROC: (CPT 27447; principal; 2023-08-06 07:30)
DX: M17.12 Unilateral primary osteoarthritis, left knee (principal); I48.0 Paroxysmal atrial fibrillation; G47.33 Obstructive sleep apnea (adult) (pediatric); I10 Essential (primary) hypertension
CPT/HCPCS: 27447; C1776; 76942; 97162; 97530; J0690; J1100; J2371; J2405; J3010

== ENCOUNTER 2023-08-15 19:49 | Outpatient (REF) | payer MEDICARE, SELFPAY ==
[2023-08-15 21:13] LABS: Source Nasal/Nares
[2023-08-15 21:20] LABS: Abs Immature Grans 0.08 10^3/uL (0.0-0.06); Absolute Basophil Count 0.08 10^3/uL (0.0-0.2); Absolute Eosinophil Count 0.21 10^3/uL (0.0-0.7); Absolute Lymphocyte Count 1.81 10^3/uL (1.2-3.4); Absolute Monocyte Count 0.98 10^3/uL (0.1-0.8); Absolute Neutrophil Count 6.05 10^3/uL (1.2-6.7); Basophils % 0.9; Eosinophils % 2.3; HCT 31.3 % (40.0-50.0); HGB 10.5 g/dL (13.5-17.5); Immature Grans % 0.9; Lymphocytes % 19.7; MCH 31.3 pg (27.0-33.0); MCHC 33.5 % (32.0-36.0); MCV 93 fL (80-95); MPV 9.4 fL (8.0-11.0); Monocytes % 10.6; Neutrophils % 65.6; Platelet Count 306 10^3/uL (130-400); RBC 3.36 10^6/uL (4.36-5.78); RDW 12.3 % (11.8-14.1); RDW-SD 41.5 fL; WBC 9.21 10^3/uL (4.4-10.8)
[2023-08-15 21:34] LABS: Anion Gap 10.5 mmol/L (3-11); BUN 24 mg/dL (7-18); CO2 25.5 mmol/L (21.0-32.0); CREATININE 1.3 mg/dL (0.70-1.30); Calcium 9.1 mg/dL (8.5-10.1); Chloride 99 mmol/L (98-107); Estimated GFR 56.23 (mL/min/1.73m2); Glucose 130 mg/dL (74-106); Potassium 3.6 mmol/L (3.5-5.1); Sodium 135 mmol/L (136-145)
[2023-08-15 21:51] LABS: COVID-19 PCR Negative (Negative)
== END 2023-08-15 19:50 | disposition home or self-care (01) ==
LOC: LBN 19:49
PROVIDERS: PCP Family Medicine; Visit Provider Physician Assistant Medical
DX: I48.0 Paroxysmal atrial fibrillation (principal); R31.9 Hematuria, unspecified; Z20.822 Contact with and (suspected) exposure to COVID-19
CPT/HCPCS: 80048; 87077; 87635; 85025; 87086; 87186

== ENCOUNTER 2023-08-20 10:06 | Outpatient (CLI) | payer MEDICARE, SELFPAY ==
[2023-08-20 11:59] LABS: Iron 62 ug/dL (65-175); Total Iron Binding Capacity 378 ug/dL (250-450); Transferrin Sat 16 % (20-55)
[2023-08-20 12:22] LABS: Ferritin 550 ng/mL (26-388); Folate 15.6 ng/mL (8.6-20.0); Vitamin B12 830 pg/mL (193-986)
== END 2023-08-20 10:07 | disposition home or self-care (01) ==
LOC: LBO 10:09
PROVIDERS: PCP Family Medicine; Visit Provider Family Medicine
DX: D64.9 Anemia, unspecified (principal); I48.0 Paroxysmal atrial fibrillation
CPT/HCPCS: 36415; 82607; 82728; 82746; 83540; 83550; 83735

== ENCOUNTER 2023-08-23 09:26 | Outpatient (CLI) | payer MEDICARE, SELFPAY ==
--- NOTE | 2023-08-23 09:15 | DI.RAD_ITS ---
Exam(s) XR KNEE LT 1V XR STANDING ALIGNMENT EXAM: XR STANDING ALIGNMENT and XR knee LT 1 V CLINICAL HISTORY: 1ST POST OP S/P L TKA. TECHNIQUE: 2D digital imaging was performed. Five images were obtained. COMPARISON: CR XR STANDING ALIGNMENT from 07/22/2023 CR XR KNEE LT 1V from 07/22/2023 FINDINGS: BONES: Moderate degenerative changes are seen in the hips bilaterally. There are postsurgical change s of a left total knee replacement. The orthopedic hardware appears in good position. No suspicious lucencies are seen in or about the orthopedic hardware. There is mild soft tissue swelling around t he left knee. In the right knee, there is medial compartment joint space narrowing and medial and la teral compartment chondrocalcinosis present. The ankles are well maintained.There is no significant leg length discrepancy. SOFT TISSUE: Normal. IMPRESSION: 1. Left total knee replacement. 2. Right knee arthrosis. DATA REPOSITORY: RADIATION DOSE DELIVERED:
== END 2023-08-23 09:27 | disposition home or self-care (01) ==
LOC: DIORS 09:26
PROVIDERS: PCP Family Medicine; Referring Provider Family Medicine
DX: Z96.652 Presence of left artificial knee joint (principal); Z47.1 Aftercare following joint replacement surgery
CPT/HCPCS: 73560; 77073

== ENCOUNTER → 2023-09-26 10:13 | Outpatient (BNVA) | payer MEDICARE, SELFPAY | PROVIDERS: PCP Family Medicine; Referring Provider Family Medicine | DX: Z47.1 Aftercare following joint replacement surgery (principal); Z96.652 Presence of left artificial knee joint ==

== ENCOUNTER → 2023-10-04 08:53 | Outpatient (BNVA) | payer MEDICARE, SELFPAY | PROVIDERS: Referring Provider Family Medicine; Visit Provider Urology | DX: R31.0 Gross hematuria (principal) | CPT/HCPCS: 99214 ==

== ENCOUNTER → 2023-10-11 08:55 | Outpatient (BNVA) | payer MEDICARE, SELFPAY | PROVIDERS: Visit Provider Urology | DX: R31.0 Gross hematuria (principal) | CPT/HCPCS: 52000; 81003 ==

== ENCOUNTER 2023-10-11 09:54 | Outpatient (REF) | payer MEDICARE, SELFPAY ==
--- NOTE | 2023-10-11 09:45 | PAPNONF_PTH ---
PATIENT: Nathan Krueger LOC: [facility] U#:[id number] AGE/SX: 77/M ROOM: RE10/11/[address]: Philip Johnson MD : 1945 BED: DIS: 10/11/2023 SPEC #: [id number] RECD: 10/11/23 13:12 STATUS: PAWEL RELizzette #: [id number] SHANTELLE: 10/11/23 09:[address]: Philip Johnson DEPT: [facility] Cytology RECD BY: Anila Estrada ENTERED: 10/11/23 13:12 SP TYPE: NICHO LOPEZ DR: Unknown,Unknown Tissues: 1 - BODY FLUID CYTO(SPUTUM/URINE)[facility] Procedures: BODY FLUID CYTO(URINE/SPUTUM) Comments: [id number] (TV = 60 ml, 30 ml CYTOLYT ADDDED) (REFRIGERATED)
== END 2023-10-11 09:55 | disposition home or self-care (01) ==
LOC: LBN 09:54
PROVIDERS: Visit Provider Urology
DX: R31.0 Gross hematuria (principal)
CPT/HCPCS: 88104

== ENCOUNTER 2023-10-28 07:12 | Day surgery (SDC) | payer MEDICARE, SELFPAY ==
[2023-10-28 07:35] VITALS: BP 143/78; PULSE 55; RESP 18; TEMP 36.5; O2SAT 97
[2023-10-28] MEDS: Lactated Ringers 1,000 ML 80 ML IV (07:50)
--- NOTE | 2023-10-28 09:31 | W.PM.HP.N ---
Date of service: 10/28/23 Time of Service: 09:31 Assessment and Plan Assessment and plan (1) Gross hematuria: Status: Acute Assessment and plan: With his recent findings of erythematous patches in the bladder and normal appearing prostatic urethral mucosa, we will plan a cystoscopy, bladder biopsy and fulguration. History of Present Illness History of Present Illness Chief Complaint: Hematuria Narrative: This is a 77-year-old gentleman who has a history of kidney stones and BPH. He has had episodes of gross painless hematuria. There appeared to be some polypoid mucosa on the prostate. I biopsied and fulgurated the area. There was no underlying malignancy. His hematuria has persisted and spite of 5 alpha reductase inhibitor therapy. He then had an embolization of the prostatic arteries. His follow-up cystoscopy showed normal prostatic mucosa, but he still has microscopic hematuria on testing. During that same cystoscopy, we identified some patchy erythema edema on the bladder mucosa. These findings were not present previously. He comes in now for biopsy of these areas and fulguration. He continues to find microscopic hematuria when he tests, but he does not see any gross hematuria. Review of Systems Narrative: No fevers or chills No vision change or dysphasia No diabetes or thyroid dysfunction Sleep apnea. No shortness of breath, cough or hemoptysis Hx atrial fibrillation. No chest pain or palpitations Crohns disease. No nausea, vomiting, hepatitis, ulcers, jaundice No seizures, strokes or peripheral neuropathy No bleeding disorders or anemia No gout PFSH All Active Problems History of total left knee replacement (Acute 08/06/23) BPH (benign prostatic hyperplasia) (Chronic) Hypertension (Chronic) Vitamin B 12 deficiency (Acute) Crohn's disease (Chronic) Alcohol use (Acute) BRITTANY (obstructive sleep apnea) (Chronic) PAF (paroxysmal atrial fibrillation) (Acute) Following up with Dr. Bauer in 3 weeks per pt. 10/16/19 Ascending aortic aneurysm (Acute) Gross hematuria (Acute) Hydronephrosis, right (Acute) History of resection of terminal ileum (Acute) PAF (paroxysmal atrial fibrillation) (Acute) Sensorineural hearing loss of both ears (Acute) Therapeutic drug monitoring (Acute) flecainide Basal cell carcinoma (Acute) face Medical History Painful total knee replacement, left Renal insufficiency Vertigo Depression Hearing impairment Mitral regurgitation Leukopenia Trochanteric bursitis Erectile dysfunction Sleep apnea Insomnia Inguinal hernia Cataract Aortic root dilation Actinic keratitis Subcutaneous mass of left forearm History of colon polyps Anemia Renal calculus, right Chronic insomnia Blurred vision Nephrolithiasis Surgical History Left inguinal hernia Previous back surgery remove L4 H/O knee surgery bilat - open mensicus 1950s Hx of colonoscopy (~11/11/20) Status post laser lithotripsy of ureteral calculus Hx of cystoscopy History of colectomy Social History Smoking/Tobacco Use Status: Former Tobacco Use Quit Date: 08/19/1959 Tobacco: How many years used: 5 Smoking risk assessment performed?: Yes Alcohol Intake: current Alcohol Intake frequency: 3 or more drinks per day Alcohol type: wine Drug use: Never Substance use type: does not use Details: alcohol: t-1, 2-3 glasses Housing: house What type of physical activity do you participate in: swimming Duration: 15-30 minutes/day Frequency: 5-6 times per week Do you feel safe at home: Yes Do you feel safe in your relationship?: Yes Additional Social history: unable to assess privately Meds Allergies and Home Medications Allergies Allergy/AdvReac Type Severity Reaction Status Date / Time paper tape AdvReac Mild Topical Uncoded 10/28/23 07:29 Irritation Home Medications Medication Instructions Recorded Confirmed Type cholestyramine (with sugar) 4 gram 4 gm PO TID 06/29/19 10/28/23 History oral powder (Questran) cyanocobalamin (vitamin B-12) 1,000 mcg PO QMONTH 06/29/19 10/28/23 History 1,000 mcg capsule flecainide 50 mg tablet 50 mg PO BID 06/29/19 10/28/23 History pravastatin 20 mg tablet 20 mg PO QHS 06/29/19 10/28/23 History (Pravachol) zolpidem 5 mg tablet (Ambien) 5 mg PO QHS PRN 06/29/19 10/28/23 History pH test #100 ea 11/13/19 10/11/23 Rx diltiazem HCl 180 mg capsule,24 180 mg PO DAILY #90 caps 11/29/20 10/28/23 Rx hr,extended release (Tiazac) dutasteride 0.5 mg capsule 0.5 mg PO DAILY 11/13/22 10/28/23 History (Avodart) hydrochlorothiazide 12.5 mg capsule 25 mg PO DAILY 03/19/23 10/28/23 History escitalopram oxalate 10 mg tablet 5 mg PO DAILY 04/09/23 10/28/23 History (Lexapro) tadalafil 5 mg tablet 5 mg PO DAILY 04/09/23 10/28/23 History potassium citrate 10 mEq (1,080 See Rx Instructions .Route 08/05/23 10/28/23 Rx mg) tablet,extended release .COMPLEX #200 tabs acetaminophen 500 mg tablet 1,000 mg (2 x 500 mg) PO Q8H PRN 08/06/23 10/28/23 Rx pain #90 tabs Exam Const General: cooperative Neck Neck: supple Resp Auscultation: clear to auscultation bilaterally Cardio Rate: regular rate Rhythm: regular rhythm GI Palpation: soft and no masses Neuro General: patient alert, patient awake and patient oriented x3 Results Last Vital Signs Temp 36.5 C 10/28/23 07:35 Pulse 55 L 10/28/23 07:35 Resp 18 10/28/23 07:35 BP 143/78 H 10/28/23 07:35 Pulse Ox 97 10/28/23 07:35 Time Spent Time spent with Patient: <40 minutes Time was spent: other
--- NOTE | 2023-10-28 09:59 | W.ANESPRE ---
General Info Date of Service Date Performed: 10/28/23 Height: 6 ft 2 in Weight: 101.6 kg Body Mass Index (BMI): 28.8 Surgical Procedure: Operation Date: 10/28/23 09:10 Proposed Procedure Side Surgeon p Cystoscopy with Bladder Biopsy Philip Johnson MD Meds Allergies and Home Medications Allergies Allergy/AdvReac Type Severity Reaction Status Date / Time paper tape AdvReac Mild Topical Uncoded 10/28/23 07:29 Irritation Home Medication Medication Instructions Recorded cholestyramine (with sugar) 4 gram 4 gm PO TID 06/29/19 oral powder (Questran) cyanocobalamin (vitamin B-12) 1,000 mcg PO QMONTH 06/29/19 1,000 mcg capsule flecainide 50 mg tablet 50 mg PO BID 06/29/19 pravastatin 20 mg tablet 20 mg PO QHS 06/29/19 (Pravachol) zolpidem 5 mg tablet (Ambien) 5 mg PO QHS PRN 06/29/19 pH test #100 ea 11/13/19 diltiazem HCl 180 mg capsule,24 180 mg PO DAILY #90 caps 11/29/20 hr,extended release (Tiazac) dutasteride 0.5 mg capsule 0.5 mg PO DAILY 11/13/22 (Avodart) hydrochlorothiazide 12.5 mg capsule 25 mg PO DAILY 03/19/23 escitalopram oxalate 10 mg tablet 5 mg PO DAILY 04/09/23 (Lexapro) tadalafil 5 mg tablet 5 mg PO DAILY 04/09/23 potassium citrate 10 mEq (1,080 See Rx Instructions .Route 08/05/23 mg) tablet,extended release .COMPLEX #200 tabs acetaminophen 500 mg tablet 1,000 mg (2 x 500 mg) PO Q8H PRN 08/06/23 pain #90 tabs Current Visit Medications: Current Medications Generic Name Dose Route Start Last Admin Trade Name Freq PRN Reason Stop Dose Admin Cefazolin Sodium/Dextrose 2 gm in 50 mls @ 100 mls/hr 10/28/23 06:00 Ancef Duplex IVPB 10/28/23 23:59 PREOP COREY Ringer's Solution 1,000 mls @ 80 mls/hr 10/28/23 06:30 10/28/23 07:50 IV 11/27/23 06:29 80 mls/hr INFUSION COREY Administration IV Miscellaneous Supplies 1 each 10/28/23 06:00 Iv Access IV 10/28/23 23:59 DIRECTED COREY IV Miscellaneous Supplies 1 each 10/28/23 06:30 Iv Access IV 11/27/23 06:29 DIRECTED COREY Sodium Chloride 0 ml 10/28/23 06:00 Normal Saline Flush 10 Ml Syr IV 10/28/23 23:59 PRN PRN Sodium Chloride 0 ml 10/28/23 06:00 Normal Saline 10 Ml Vial IJ 10/28/23 23:59 DIRECTED PRN Sodium Chloride 0 ml 10/28/23 06:17 Normal Saline Flush 10 Ml Syr IVP 11/27/23 06:16 PRN PRN Sodium Chloride 0 ml 10/28/23 08:30 Normal Saline Flush 10 Ml Syr IVP 11/27/23 08:29 BID COREY Sodium Chloride 0 ml 10/28/23 06:17 Normal Saline 10 Ml Vial IJ 11/27/23 06:16 DIRECTED PRN Sterile Water 0 ml 10/28/23 06:00 Water,Injection,Sterile 10 Ml Vial IJ 10/28/23 23:59 DIRECTED PRN PFSH Active Problems Active Problems: Problem Status Onset Code History of total left knee replacement 08/06/23 Z96.652 BPH (benign prostatic hyperplasia) N40.0 Hypertension I10 Vitamin B 12 deficiency E53.8 Crohn's disease K50.90 Alcohol use Z72.89 BRITTANY (obstructive sleep apnea) G47.33 PAF (paroxysmal atrial fibrillation) I48.0 Ascending aortic aneurysm I71.2 Gross hematuria R31.0 Hydronephrosis, right N13.30 History of resection of terminal ileum Z98.890, Z90.49 PAF (paroxysmal atrial fibrillation) I48.0 Sensorineural hearing loss of both ears H90.3 Therapeutic drug monitoring Z51.81 Basal cell carcinoma C44.91 Medical History Medical History Painful total knee replacement, left Renal insufficiency Vertigo Depression Hearing impairment Mitral regurgitation Leukopenia Trochanteric bursitis Erectile dysfunction Sleep apnea Insomnia Inguinal hernia Cataract Aortic root dilation Actinic keratitis Subcutaneous mass of left forearm History of colon polyps Anemia Renal calculus, right Chronic insomnia Blurred vision Nephrolithiasis Surgical History Surgical History Left inguinal hernia Previous back surgery remove L4 H/O knee surgery bilat - open mensicus 1950s Hx of colonoscopy (~11/11/20) Status post laser lithotripsy of ureteral calculus Hx of cystoscopy History of colectomy Tobacco Smoking/Tobacco Use Status: Former Tobacco Use Alcohol Alcohol Intake: current Alcohol intake frequency: 3 or more drinks per day Alcohol type: wine Substance Use Substance use: Never Substance use type: does not use Details: alcohol: t-1, 2-3 glasses Vital Signs and Lab Results Vital Signs Most Recent Vital Signs in EMR: Most Recent Vital Signs Temp Pulse Resp BP Pulse Ox 36.5 C 55 L 18 143/78 H 97 10/28/23 07:35 10/28/23 07:35 10/28/23 07:35 10/28/23 07:35 10/28/23 07:35 Lab Results Blood Type / Crossmatch: No Data to Display Complete Blood Count: No Data to Display Complete Metabolic Panel: No Data to Display Liver Function Panel: No Data to Display Coagulation Panel: No Data to Display Cardiac Panel: No Data to Display Arterial Blood Gas: No Data to Display Venous Blood Gas: No Data to Display Pancreas Panel: No Data to Display Thyroid Panel: No Data to Display Infectious Disease: No Data to Display Blood Cultures: No Data to Display Toxicology Panel: No Data to Display Imaging and Studies Imaging and Studies Study information below may be from another EMR and interpreted by another provider. Please see original notes in EMR for more complete details. EKG Summary: 04/10: sinus, prob LAE. Stress Test Summary: 02/07: 7 METS 65%peak HR achieved. MPI Conclusion Normal myocardial perfusion without evidence of ischemia or prior infarction EF 52%, normal wall motion Echocardiogram Summary: 03/10: LVEF 65%, moderate MR, moderate TR, ascending Ao 4.45 cm. RVSP 32 mmhg Anesthesia Assessment and Plan Anesthesia History Personal History: No History of Anesthesia Complications Family History: No Family History of Anesthesia Complications Exercise Tolerance Exercise Tolerance: Metabolic Equivalents>4 Pertinent Negatives Pertinent Negatives: No Symptoms of GERD, No Major Cardiovascular Symptoms or Complaints, No Major Pulmonary Symptoms or Complaints and No History of CVA/TIA Cardiac & Pulmonary Exam Cardiac Exam: Normal S1/S2 Heart Sounds Pulmonary Exam: Clear Bilateral Breath Sounds Implantable Cardiac Device Does patient have a Pacemaker or an ICD?: No Airway Exam Known Difficult Airway: No Mallampati Class: 3 Mouth Opening: Normal (> 3cm) Thyromental Distance: Greater than 3 cm Neck Range of Motion: Full ROM Neck Circumference: Normal Teeth Condition: Normal Dentition ASA Classification ASA Score: ASA 2 Emergency Case?: No NPO Status NPO Status: NPO Clears >2 hours, Solids >8 hours Anesthesia Plan Resuscitation Status: Full Code Anesthesia Technique: General Anesthesia Airway Planned: Natural Airway Monitors Used: Standard Monitors and SedLine
[2023-10-28] MEDS: ceFAZolin 2 GM/50 ML BAG IVPB (10:07)
[2023-10-28] MEDS: Lidocaine 2% Jelly 11 ML SYR (10:20)
--- NOTE | 2023-10-28 10:20 | BLADDER_PTH ---
PATIENT: Nathan Krueger LOC: [facility] U#:[id number] AGE/SX: 77/M ROOM: RE10/28/[address]: Philip Johnson MD : 1945 BED: DIS: 10/28/2023 SPEC #: [id number] RECD: 10/28/23 12:41 STATUS: PAWEL REQ #: [id number] SHANTELLE: 10/28/23 10:[address]: Philip Johnson DEPT: Surgical Specimen RECD BY: Anila Estrada ENTERED: 10/28/23 12:43 SP TYPE: Bladder OTHR DR: Ronak Saeed Tissues: 1 - BLADDER BIOPSY Procedures: GROSS AND MICRO LEVEL 4 Comments: [id number]
[2023-10-28 10:28] VITALS: BMI 28.8
--- NOTE | 2023-10-28 10:34 | ROE_ITS ---
Date of service: 10/28/23 Time of Service: 10:35 Operative Note Operative Note DATE OF PROCEDURE: 10/28/23 PRE-OP DIAGNOSIS: hematuria POST-OP DIAGNOSIS: same PROCEDURE: cystoscopy, bladder biopsy with fulguration SURGEON: Philip Johnson ANESTHESIA TYPE: Local By Surgeon and General:No Airway Refer to Anesthesia Record ESTIMATED BLOOD LOSS: 5 PATHOLOGY: other (bladder biopsies) COMPLICATIONS: None Patient was transported to: same day Patient's condition: stable Indications: This is a 77-year-old gentleman who has a history of kidney stones and BPH. He has had persistent gross and microscopic hematuria over the years. Based on his initial evaluation, we believed that his hematuria was from an enlarged vascular prostate. We treated him with 5 alpha reductase inhibitors. When he started on anticoagulants for atrial fibrillation, his gross hematuria returned. There was some papillary areas of growth on the prostatic mucosa out toward the verumontanum. I biopsied and cauterized these areas and no malignancy was found. The patient ultimately elected to have prostatic artery embolization to help control prostatic bleeding. Since the procedure, the patient has not had any gross hematuria, but has had persistent microscopic hematuria. I read did cystoscopy and his prostatic urethral mucosa now looks completely normal. He did however has some flat small (less than 2 cm) hemorrhagic areas in the bladder. I did not see any papillary component to these lesions and his urine cytologies have been normal. He comes in now for biopsy and fulguration of these hemorrhagic areas. Findings: Multiple small flat erythematous patches with no papillary component Procedure Description: The patient was given IV antibiotics and brought to the operating room on 10/28/2023. After successful induction of general anesthesia without intubation, he was placed in the dorsal lithotomy position. His genitalia was prepped and draped. 2% Xylocaine jelly was instilled into the urethra to act as a local anesthetic. A 22 Estonian rigid cystoscope was passed through the urethra into the bladder. The urethra and bladder were inspected with the 30 degree lens. The pendulous, bulbar and membranous urethra's appeared normal with no strictures. The prostatic urethra showed smooth mucosa with no papillary or nodular lesions. No prominent blood vessels were seen on the prostatic mucosa. The bladder neck was entered and the bladder mucosa was inspected. Both ureteral orifices appeared normal. No blood was seen coming from either orifice. Multiple small flat erythematous patches were seen on the posterior bladder wall. Each of these areas was biopsied and the biopsies were sent to pathology for permanent section. The biopsy sites were then fulgurated using bipolar cautery. At the completion of the procedure, no active bleeding was seen. The bladder was emptied and the scope was removed. The patient tolerated this procedure well with no complications. He was taken back to the day surgery unit in stable condition.
[2023-10-28 10:35] VITALS: BP 124/65; PULSE 55; RESP 16; TEMP 36.5; O2SAT 98
--- NOTE | 2023-10-28 10:36 | W.PM.DSUDISC ---
Date of service: 10/28/23 Time of Service: 10:36 Discharge Plan Disposition Patient Disposition: Home Condition: Stable Discharge Details Reason For Visit: bladder biopsies Attending Provider: Philip Johnson Primary Care Provider: Ronak Saeed Home Meds and New Rx's Prescriptions: No Action dutasteride [Avodart] 0.5 mg capsule 0.5 mg PO DAILY (DME) pH test Strip See Rx Instructions .ROUTE .MEDSUPPLY Qty: 100 12RF Rx Instructions: As directed pravastatin [Pravachol] 20 mg tablet 20 mg PO QHS flecainide 50 mg tablet 50 mg PO BID cyanocobalamin (vitamin B-12) 1,000 mcg capsule 1,000 mcg PO QMONTH cholestyramine (with sugar) [Questran] 4 gram powder 4 gm PO TID zolpidem [Ambien] 5 mg tablet 5 mg PO QHS PRN diltiazem HCl [Tiazac] 180 mg capsule,extended release 24 hr 180 mg PO DAILY Qty: 90 3RF hydrochlorothiazide 12.5 mg capsule 25 mg PO DAILY Patient Comments: pt .reports taking BID tadalafil 5 mg tablet 5 mg PO DAILY escitalopram oxalate [Lexapro] 10 mg tablet 5 mg PO DAILY potassium citrate 10 mEq (1,080 mg) tablet extended release See Rx Instructions .ROUTE .COMPLEX Qty: 200 3RF Dose Instruction: TAKE 1 TABLET BY MOUTH TWICE DAILY FOR STONE PREVENTION Rx Instructions: TAKE 1 TABLET BY MOUTH TWICE DAILY FOR STONE PREVENTION acetaminophen 500 mg tablet 1,000 mg PO Q8H PRN Qty: 90 0RF Rx Instructions: Take two tablets up to every 8 hours as needed for pain Discharge Instructions Additional Instructions: followup 1 to 2 weeks to review biopsy results Activity:: Activity as Tolerated Shower/Bathe:: 24 hours Diet:: As Tolerated Discharge Orders Discharge Orders: Discharge Order (Routine); Ordered 10/28/23 Ordered By: Philip Johnson DS: Diagnosis Discharge Diagnosis (1) Gross hematuria: Status: Acute
--- NOTE | 2023-10-28 10:45 | W.ANESPOSTOP ---
Postoperative Evaluation Date, Time and Location Date Performed: 10/28/23 Time Performed: 10:35 Patient Location: Day [facility] Unit Vital Signs Most Recent Imported Vital Signs: Most Recent Vital Signs Temp Pulse Resp BP Pulse Ox 36.5 C 55 L 16 124/65 98 10/28/23 10:35 10/28/23 10:35 10/28/23 10:35 10/28/23 10:35 10/28/23 10:35 Pain Score Most Recent Pain Score: Most Recent Pain Score Pain Level 0 10/28/23 10:35 Assessment Mental Status: Awake (Alert & Oriented to Patient Baseline) Airway and Respiratory Function: Patent airway with normal (patient baseline) respiratory exam Cardiovascular Function: Hemodynamically Stable Hydration Status: Adequately Hydrated Nausea & Vomiting: No Nausea or Vomiting Pain: Pt. Denies Any Pain Peripheral Nerve Block: Patient did not receive a nerve block
[2023-10-28] MEDS: Phenazopyridine 200 MG TAB PO (11:02)
[2023-10-28 11:03] VITALS: BP 136/74; PULSE 54; RESP 16; TEMP 36.3; O2SAT 98
== END 2023-10-28 11:24 | disposition home or self-care (01) ==
PROVIDERS: PCP Family Medicine; Visit Provider Urology
PROC: 0TBB8ZX Excision of Bladder, Via Natural or Artificial Opening Endoscopic, Diagnostic (ICD-10-PCS; CPT 52204; principal; 2023-10-28 09:00)
DX: N32.89 Other specified disorders of bladder (principal); R31.0 Gross hematuria; Z79.01 Long term (current) use of anticoagulants; I48.91 Unspecified atrial fibrillation
CPT/HCPCS: 52204; 88305; J0690; J1100; J1885; J2001; J2405; J2704

== ENCOUNTER → 2023-11-07 13:30 | Outpatient (BNVA) | payer MEDICARE, SELFPAY | PROVIDERS: PCP Family Medicine; Visit Provider Student in an Organized Health Care Education/Training Program | DX: Z47.1 Aftercare following joint replacement surgery (principal); Z96.652 Presence of left artificial knee joint ==

== ENCOUNTER → 2023-11-15 14:58 | Outpatient (BNVA) | payer MEDICARE, SELFPAY | PROVIDERS: PCP Family Medicine; Referring Provider Family Medicine; Visit Provider Urology | DX: R31.0 Gross hematuria (principal) | CPT/HCPCS: 99214 ==

== ENCOUNTER 2023-11-29 16:09 | Emergency (ER) | payer MEDICARE, SELFPAY ==
[2023-11-29] VITALS (22 sets, daily range): BP systolic 151–180; BP diastolic 71–104; PULSE 52–104; RESP 11–30; TEMP 36.6; O2SAT 94–98
--- NOTE | 2023-11-29 16:00 | RT.EKG_ITS ---
APPROVED REPORT Exam: Resting ECG Reason for Exam: irregualr HR Patient Location: E HR:95 bpm ECG Measurements Heart Rate 95 AXIS [place] [id number] P [id number] QRSd 114 QRS -15 QT 445 T -23 QTc 533 Conclusion Atrial flutter with predominant 2:1 AV block...A-rate 211, multiple Ps Inferior infarct, age indeterminate...Q>35mS, T neg, II III aVF Prolonged QT interval...QTc >500mS Rate controlled atrial flutter at a rate of 95 bpm. Left axis deviation no signs of LVH. Prolonged QRS. Prolonged QTc at [address] segment abnormalities. No T wave inversions. No acute injury pattern. Compared to prior dated last year atrial flutter is new.
--- NOTE | 2023-11-29 16:22 | W.ED.GENAD ---
Discharge Plan Disposition Patient Disposition: Home Discharge Details Clinical Impression: Atrial fibrillation Primary Care Provider: Ronak Saeed ED Provider: Nathan Romeo Home Meds and New Rx's Prescriptions: Continued (DME) pH test Strip See Rx Instructions .ROUTE .MEDSUPPLY Qty: 100 12RF Rx Instructions: As directed aminocaproic acid [Amicar] 500 mg tablet 500 mg PO Q6H Qty: 120 0RF pravastatin [Pravachol] 20 mg tablet 20 mg PO QHS flecainide 50 mg tablet 50 mg PO BID cyanocobalamin (vitamin B-12) 1,000 mcg capsule 1,000 mcg PO QMONTH cholestyramine (with sugar) [Questran] 4 gram powder 4 gm PO TID zolpidem [Ambien] 5 mg tablet 5 mg PO QHS PRN diltiazem HCl [Tiazac] 180 mg capsule,extended release 24 hr 180 mg PO DAILY Qty: 90 3RF hydrochlorothiazide 12.5 mg capsule 25 mg PO DAILY Patient Comments: pt .reports taking BID escitalopram oxalate [Lexapro] 10 mg tablet 5 mg PO DAILY Discharge Instructions Instructions: A-fib (Atrial Fibrillation) (ED) Additional Instructions: You were seen in the emergency department for your palpitations. You are in atrial fibrillation and as we discussed this rhythm can make you at increased risk for a stroke. Please begin taking your apixaban again tomorrow morning 5 mg by mouth twice daily. Please return to the emergency department if you develop palpitations chest pain shortness of breath or if you pass out. Otherwise please follow-up with your primary care provider next week. Discharge Data Discharge Date/Time-TO BE ENTERED AT DEPARTURE: 11/29/23 18:08 HPI General Date/Time Provider Initiated Documentation: 11/29/23 16:22. HPI Narrative: MDM This is an overall very well-appearing mildly tachycardic but normothermic 78-year-old male with paroxysmal atrial fibrillation not on anticoagulation having failed outpatient pill in pocket approach with diltiazem and flecainide for which he will receive 10 mg of IV diltiazem. No chest pain to suggest ACS however will obtain a troponin to assess for myocardial injury. ECG not consistent with ACS so I do not feel the patient would require lytics. No lower extremity edema to suggest acute heart failure. No abdominal pain to suggest intra-abdominal infection. Clear lungs and no history of trauma so doubt pneumothorax. Will check magnesium and TSH along with basic electrolytes. Will maintain the patient on the monitor. Given symptom onset less than 48 hours will pursue rhythm control. Patient had a normal ejection fraction last year. He also has history of hematuria but denies dysuria and frequency so we will defer UA at this point in time. 5:20 PM CBC showing mild improved normocytic anemia. No leukocytosis. No thrombocytopenia. Patient feels markedly improved. His heart rate is 66 however he remains in atrial fibrillation. No anticoagulation has been considered in the past with this patient and he was previously on apixaban however he has not been on this secondary to his hematuria. There is certainly some risks in the setting of mild movement of the coagulation we will discuss these with the patient. 5:45 PM Basic metabolic panel showing no ANGELIC. Very mild hypokalemia. Normal bicarbonate and no anion gap. Portable chest x-ray read as no acute cardiopulmonary process. Negative troponin. Magnesium within normal limits. TSH within normal limits. I met with the patient and explained his reassuring evaluation in the emergency department. He felt markedly improved. He remained in atrial fibrillation at a rate of 60. He does have a history of hematuria but I also explained that there is a risk of stroke. I explained that the patient is in a difficult position as he has an elevated [id number] 2 score making him appropriate for anticoagulation with apixaban which he has at home still. I also explained that he has an elevated HAS bled score making him high risk for bleeding secondary to his age history of hypertension and history of bleeding history and age greater than 65. Ultimately, after shared decision-making, patient elected to pursue anticoagulation. I provided initial dose of apixaban in the ED. He will continue taking his anticoagulation at home. He patient and I discussed return to the ED for chest pain syncope recurrent palpitations or any shortness of breath. Patient understood his return indications and was discharged with empiric trial of expectant outpatient management. I have asked health munitions handler supervisor Teresita to have the patient seen in the next 3 to 4 days by cardiology at [facility]. Patient will also call his boiler shop mechanic. Chronic conditions affecting the care of the patient: Atrial fibrillation History obtained from an outside historian: N/A External record review: [facility] [place] Diagnostic interpretations performed by me: Per my independent interpretation chest x-ray shows: No acute cardiopulmonary process. Per my independent interpretation EKG shows: Rate controlled atrial flutter at a rate of 95 bpm. Left axis deviation no signs of LVH. Prolonged QRS. Prolonged QTc at [address] segment abnormalities. No T wave inversions. No acute injury pattern. Compared to prior dated last year atrial flutter is new. ]Medications: Diltiazem Social determinants of health affecting disposition: N/A Management discussed with: N/A Treatment/interventions considered: Hospitalization for monitoring but deferred based on improved symptoms Response to therapies provided: Improved rate in the ED HPI This is a 78-year-old male with a history of paroxysmal atrial fibrillation on as needed diltiazem and flecainide arriving to the emergency department via private vehicle in the setting of palpitations. Patient has history of atrial fibrillation and several times a year he developed palpitations for which cardiology has prescribed pill in the pocket diltiazem and flecainide. He noted that last night he had palpitations. He took his oral diltiazem and flecainide and this improved his symptoms. Today after an exercise class at approximately 2:30 PM patient developed recurrent palpitations and took an additional dose of flecainide and diltiazem. He has persistent palpitations and came to the emergency department. He does drink 3 glasses of wine per day but denies history of withdrawal. He is having no chest pain no lower extremity swelling no difficulty breathing nausea nor vomiting. Patient notes hematuria for the past approximately 1 year. He denies dysuria frequency and any clot hematuria. Exam General: Well-appearing in no acute distress speaking in complete sentences. Head: Normocephalic, atraumatic. Eye: Extraocular eye movements intact. No conjunctival injection. No scleral icterus. Ear, nose, mouth, throat: Grossly normal inspection. Normal voice, handling secretions normally. Neck: Trachea midline. Cardiovascular: Well-perfused distal extremities. Irregularly irregular rhythm Respiratory: Nonlabored respiration. Clear lungs bilaterally. Gastrointestinal: Nondistended abdomen. Musculoskeletal: No significant lower extremity pitting edema. Moving all 4 extremities spontaneously. Skin: Normal for age and race, grossly normal temperature and turgor. No acute rash. Neurologic: Alert and appropriate, no apparent acute deficits. Psychiatric: Mood and manner are appropriate. Grooming and personal hygiene are appropriate. Related Data Home Medications Medication Instructions Recorded Confirmed cholestyramine (with sugar) 4 gram 4 gm PO TID 06/29/19 11/29/23 oral powder (Questran) cyanocobalamin (vitamin B-12) 1,000 mcg PO QMONTH 06/29/19 11/29/23 1,000 mcg capsule flecainide 50 mg tablet 50 mg PO BID 06/29/19 11/29/23 pravastatin 20 mg tablet 20 mg PO QHS 06/29/19 11/29/23 (Pravachol) zolpidem 5 mg tablet (Ambien) 5 mg PO QHS PRN 06/29/19 11/29/23 pH test #100 ea 11/13/19 11/29/23 diltiazem HCl 180 mg capsule,24 180 mg PO DAILY #90 caps 11/29/20 11/29/23 hr,extended release (Tiazac) hydrochlorothiazide 12.5 mg capsule 25 mg PO DAILY 03/19/23 11/29/23 escitalopram oxalate 10 mg tablet 5 mg PO DAILY 04/09/23 11/29/23 (Lexapro) aminocaproic acid 500 mg tablet 500 mg PO Q6H hematuria #120 tabs 11/15/23 11/29/23 (Amicar) Previous Rx's Medication Instructions Recorded pH test #100 ea 11/13/19 diltiazem HCl 180 mg capsule,24 180 mg PO DAILY #90 caps 11/29/20 hr,extended release (Tiazac) aminocaproic acid 500 mg tablet 500 mg PO Q6H hematuria #120 tabs 11/15/23 (Amicar) Allergies Allergy/AdvReac Type Severity Reaction Status Date / Time sorbitol Allergy Intermediate Diarrhea Verified 11/29/23 16:23 paper tape AdvReac Mild Topical Uncoded 11/29/23 16:23 Irritation General Stated Complaint: Arrhythmia MAURA: 2 Course Vital Signs Vital signs: Vital Signs Temperature 36.6 C 11/29/23 16:13 Pulse 102 H 11/29/23 16:13 Blood Pressure 179/83 H 11/29/23 16:13 Pulse Oximetry 97 11/29/23 16:13 Temperature 36.6 C 11/29/23 16:13 Temperature Source Oral 11/29/23 16:13 Pulse 102 H 11/29/23 16:13 Blood Pressure 179/83 H 11/29/23 16:13 Blood Pressure Position Sitting 04/12/24 16:13 Pulse Oximetry 97 11/29/23 16:13 Oxygen Delivery Method Room Air 11/29/23 16:13 Oxygen Flow Rate 0 11/29/23 16:13 Pain Level 0 11/29/23 16:13 Medical Decision Making Quality:SDOH Health Related Social Needs: No Data to Display Critical Care Time Critical Care Time Critical Care Time: Yes Total Critical Care Time: 30 Attestation: IV antiarrhythmics for rate and rhythm control PFSH All Active Problems (Updated 11/29/23 @ 17:58 by Nathan Rmoeo MD) Atrial fibrillation (Chronic) History of total left knee replacement (Acute 08/06/23) BPH (benign prostatic hyperplasia) (Chronic) Hypertension (Chronic) Vitamin B 12 deficiency (Acute) Crohn's disease (Chronic) Alcohol use (Acute) BRITTANY (obstructive sleep apnea) (Chronic) PAF (paroxysmal atrial fibrillation) (Acute) Following up with Dr. Bauer in 3 weeks per pt. 10/16/19 Ascending aortic aneurysm (Acute) Gross hematuria (Acute) Hydronephrosis, right (Acute) History of resection of terminal ileum (Acute) PAF (paroxysmal atrial fibrillation) (Acute) Sensorineural hearing loss of both ears (Acute) Therapeutic drug monitoring (Acute) flecainide Basal cell carcinoma (Acute) face Medical History Painful total knee replacement, left Renal insufficiency Vertigo Depression Hearing impairment Mitral regurgitation Leukopenia Trochanteric bursitis Erectile dysfunction Sleep apnea Insomnia Inguinal hernia Cataract Aortic root dilation Actinic keratitis Subcutaneous mass of left forearm History of colon polyps Anemia Renal calculus, right Chronic insomnia Blurred vision Nephrolithiasis Surgical History Left inguinal hernia Previous back surgery remove L4 H/O knee surgery bilat - open mensicus 1950s Hx of colonoscopy (~11/11/20) Status post laser lithotripsy of ureteral calculus Hx of cystoscopy History of colectomy Social History Smoking/Tobacco Use Status: Former Tobacco Use Quit Date: 08/19/1959 Tobacco: How many years used: 5 Smoking risk assessment performed?: Yes Alcohol Intake: current Alcohol Intake frequency: 3 or more drinks per day Alcohol type: wine Drug use: Never Substance use type: does not use Details: alcohol: t-1, 2-3 glasses Housing: house What type of physical activity do you participate in: swimming Duration: 15-30 minutes/day Frequency: 5-6 times per week Do you feel safe at home: Yes Do you feel safe in your relationship?: Yes Additional Social history: unable to assess privately
[2023-11-29] MEDS: dilTIAZem 25 MG/5 ML VIAL 10 MG IVP (17:10)
[2023-11-29 17:11] LABS: Abs Immature Grans 0.01 10^3/uL (0.0-0.06); Absolute Basophil Count 0.06 10^3/uL (0.0-0.2); Absolute Eosinophil Count 0.16 10^3/uL (0.0-0.7); Absolute Lymphocyte Count 2.44 10^3/uL (1.2-3.4); Absolute Monocyte Count 0.78 10^3/uL (0.1-0.8); Absolute Neutrophil Count 3.17 10^3/uL (1.2-6.7); Basophils % 0.9; Eosinophils % 2.4; HCT 38.4 % (40.0-50.0); HGB 13.1 g/dL (13.5-17.5); Immature Grans % 0.2; Lymphocytes % 36.9; MCH 30.6 pg (27.0-33.0); MCHC 34.1 % (32.0-36.0); MCV 90 fL (80-95); MPV 9.8 fL (8.0-11.0); Monocytes % 11.8; Neutrophils % 47.8; Platelet Count 156 10^3/uL (130-400); RBC 4.28 10^6/uL (4.36-5.78); RDW 13.5 % (11.8-14.1); RDW-SD 44.3 fL; WBC 6.62 10^3/uL (4.4-10.8)
--- NOTE | 2023-11-29 17:16 | DI.RAD_ITS ---
Exam(s) XR PORTABLE CHEST AP EXAM: XR PORTABLE CHEST AP CLINICAL HISTORY: Palpitations TECHNIQUE: 2D digital imaging was performed of the chest. Two images were obtained. AP views were obtained. COMPARISON: No exams were available for comparison FINDINGS: MEDIASTINUM: Normal. HEART: Normal. PULMONARY VASCULATURE: Normal. LUNGS: Clear. PLEURAL SPACE: No pleural effusion or pneumothorax. BONE:Within normal limits for the patient's age. OTHER FINDINGS:Normal. IMPRESSION: No acute pulmonary findings. DATA REPOSITORY: RADIATION DOSE DELIVERED:
[2023-11-29 17:35] LABS: Anion Gap 10.2 mmol/L (3-11); BUN 22 mg/dL (7-18); CO2 25.8 mmol/L (21.0-32.0); CREATININE 1.1 mg/dL (0.70-1.30); Chloride 106 mmol/L (98-107); Estimated GFR 68.29 (mL/min/1.73m2); Glucose 90 mg/dL (74-106); Potassium 3.4 mmol/L (3.5-5.1); Sodium 142 mmol/L (136-145); TSH (W/Ref FT4) 1.55 uIU/mL (0.36-3.74); Troponin I < 50 ng/L (< or =60)
--- NOTE | 2023-11-29 18:03 | NUR.NOTE ---
Nursing Note:PT needs follow up early next week with cardiology for AFIB. Teresita, ED
[2023-11-29] MEDS: Apixaban 5 MG TAB PO (18:04)
== END 2023-11-29 18:08 | disposition home or self-care (01) ==
PROVIDERS: Emergency Provider Emergency Medicine; PCP Family Medicine
DX: I48.91 Unspecified atrial fibrillation (principal); D64.9 Anemia, unspecified; E87.6 Hypokalemia
CPT/HCPCS: 80048; 93005; 96374; 99291; 71045; 83735; 84443; 84484; 85025; 93010

== ENCOUNTER → 2023-12-02 13:23 | Outpatient (BNVA) | payer MEDICARE, SELFPAY | PROVIDERS: PCP Family Medicine; Referring Provider Family Medicine; Visit Provider Internal Medicine Cardiovascular Disease | DX: I51.7 Cardiomegaly (principal); I48.0 Paroxysmal atrial fibrillation | CPT/HCPCS: 93005; 99213 ==

== ENCOUNTER → 2023-12-09 15:31 | Outpatient (BNVA) | payer MEDICARE, SELFPAY | PROVIDERS: PCP Family Medicine; Referring Provider Family Medicine; Visit Provider Urology | DX: R31.0 Gross hematuria (principal) | CPT/HCPCS: 99443 ==

== ENCOUNTER 2024-01-14 08:35 | Outpatient (CLI) | payer MEDICARE, SELFPAY ==
--- NOTE | 2024-01-14 08:30 | RT.EKG_ITS ---
APPROVED REPORT Exam: Resting ECG Reason for Exam: afib Patient Location: O HR:57 bpm ECG Measurements Heart Rate 57 AXIS NV [id number] P [id number] QRSd 118 QRS -1 QT 479 T -10 QTc 467 Conclusion Atrial fibrillation...? atrial activity Nonspecific intraventricular conduction delay...QRSd >115mS, not LBBB/RBBB Baseline wander in lead(s) II,III,aVF
== END 2024-01-14 08:36 | disposition home or self-care (01) ==
LOC: DI.CARD 08:35
PROVIDERS: PCP Family Medicine; Visit Provider Internal Medicine Cardiovascular Disease
DX: I48.0 Paroxysmal atrial fibrillation (principal)
CPT/HCPCS: 93010

== ENCOUNTER → 2024-01-14 10:15 | Outpatient (BNVA) | payer MEDICARE, SELFPAY | PROVIDERS: PCP Family Medicine; Referring Provider Family Medicine; Visit Provider Internal Medicine Cardiovascular Disease | DX: R31.0 Gross hematuria (principal); I48.0 Paroxysmal atrial fibrillation | CPT/HCPCS: 93005; 99213 ==

== ENCOUNTER → 2024-02-18 10:42 | Outpatient (BNVA) | payer MEDICARE, SELFPAY | PROVIDERS: PCP Family Medicine; Referring Provider Family Medicine; Visit Provider Urology | DX: R31.29 Other microscopic hematuria (principal) | CPT/HCPCS: 99443 ==

== ENCOUNTER → 2024-03-10 01:05 | Outpatient (CLI) | payer MEDICARE, SELFPAY ==
--- NOTE | 2024-03-10 14:30 | DI.US_ITS ---
APPROVED REPORT EXAM: Comprehensive 2D, Doppler, and color-flow Echocardiogram Patient Location: Out-Patient [employer] Offbearer: Nelia Larson RDCS (AE) Indications: Ascending aortic aneurysm, sleep apnea, Atrial fibrillation Other Information Study Quality: Adequate Conclusion Mild concentric left ventricular hypertrophy. Ejection fraction is 60%. Wall motion is normal Normal right ventricular size and function Both atria are mildly enlarged Trileaflet aortic valve with trivial regurgitation Normal mitral valve with trace regurgitation Normal tricuspid valve with mild regurgitation. Estimated right ventricular systolic pressure is 26 mmHg Ascending aorta measures 4.54 cm Wall motion Left Ventricle The left ventricle is normal size. The left ventricular systolic function is normal. The left ventric ular ejection fraction is within the normal range. Mild concentric left ventricular hypertrophy. Ther e is normal LV segmental wall motion. There is no ventricular septal defect visualized. LVEF is 60%. Right Ventricle The right ventricle is normal size. The right ventricular systolic function is normal. Atria Left atrium is mildly dilated. Right atrium is mildly dilated. The interatrial septum is intact with no evidence for an atrial septal defect. Aortic Valve The aortic valve is normal in structure. Aortic valve is trileaflet. There is no aortic valvular sten osis. Trivial aortic regurgitation. Mitral Valve The mitral valve is normal in structure. No evidence of mitral valve stenosis. Trace mitral regurgit ation. Tricuspid Valve The tricuspid valve is normal in structure. There is no tricuspid valve stenosis. Mild tricuspid regu rgitation. The RVSP is 25.6 mmHg. Pulmonic Valve The pulmonary valve is normal in structure. There is no pulmonic valvular stenosis. Mild to moderate pulmonic regurgitation. Great Vessels The aortic root is normal in size. The ascending aorta is severely dilated. Aortic arch is not well v isualized. IVC is normal in size and collapses >50% with inspiration. Pericardium There is no pericardial effusion. 2D Dimensions IVSD d PLAX 1.30 cm M: 0.6-1.2 Ao Root d 3.62 cm M: 3.1 - 3.7 LVPW d PLAX 1.30 cm M: 0.6 - 1.2 Ao Asc Diam d 4.54 cm M: 2.6 - 3.4 LVID d PLAX 5.30 cm M: 4.2 - 5.8 LVDs 3.66 cm M: 2.5 - 4.0 LV EF Teichholz 58.1 % FS 30.94 % LV EDV (Teich) 135.6 mL LV ESV (Teich) 56.7 mL M-Mode TAPSE 2.25 cm (M/F) >1.7 Auto EF LV EDV A4C 193.7 mL LV EDV A2C 191.6 mL LV EDV BP 194.0 mL LV ESV A4C 77.9 mL LV ESV A2C 79.2 mL LV ESV BP 78.2 mL LVEF(%) A4C 59.8 % LVEF(%) A2C 58.7 % LVEF(%) BP 59.7 % LV SV A4C 115.8 ml LV SV A2C 112.5 ml LV SV BP 115.8 ml LV CO A4C 6.1 L/min LV CO A2C 6.2 L/min LV CO BP 6.2 L/min HR A4C 52.93 BPM HR A2C 55.30 BPM LV EDV Index (BP) LA Volume LA Length A4C 5.4 cm LA Length A2C 6.9 cm LA Area A4C s 23.65 cm2 LA Area A2C s 25.03 cm2 LA Vol A4C A-L 88.30 mL LA Vol A2C A-L 77.27 mL LA Vol Biplane A-L 93.4 mL LA Vol/BSA A4C A-L LA Vol/BSA A2C A-L LA Vol/BSA BP A-L 41.3 mL/m2 LA Vol A4C MOD 82.0 mL LA Vol A2C MOD 75.4 mL LA Vol BP MOD 88.0 mL RA Volume RA Area A4C 20.4 cm2 RA ESV A4C (A-L) 66.7mL RA Vol/BSA A4C A-L RA Length A4C 5.3 cm RA ESV A4C (MOD) 60.4mL LV Diastology MV E' medial 0.087 (>0.07 m/s) MV E Vmax 0.86 (0.4-1.3 m/s) MV E/E' MED 9.81 (<14) MV A Vmax 0.75 (0.4-1.3 m/s) MV E' lateral 0.092 (>0.1 m/s) E/A Ratio 1.1 MV E/E' LAT 9.33 (<14) MV E' Average 0.090 m/s MV E/E'(average) 9.56 Aortic Valve AoV Vmax 1.24 m/s LVOT Vmax 1.19 m/s AoV Peak Grad 6.2 mmHg LVOT Peak Grad 5.6 mmHg AoV Area (Vmax) 3.52 cm2 LVOT VTI 0.273 m AoV VTI 0.322 m LVOT Mean Grad 2.8 mmHg AoV Mean Gil. 0.86 m/s LVOT SV 100.39 mL AoV Mean Grad 3.4 mmHg LVOT Diam s 2.15 cm AoV Area (VTI) 3.12 cm2 AV Regurg Peak Gr. 6.15 mmHg Velocity Ratio 0.96 Mitral Valve MV DT 240 (160-240 msec) MV Vmax TIPS 0.74 m/s MV Mean Grad 0.9 (<2mmHg) MV VTI 0.392 m Pulmonary Valve PV Vmax 1.19 (0.5-1.5 m/s) RVOT Vmax 0.88 m/s PV Peak Grad 5.7 mmHg RVOT Peak Gr. 3.1 mmHg PV Mean Gil 0.79 m/s RVOT VTI 0.200 m PV Mean Grad 2.9 mmHg RVOT Mean Gr. 1.6 mmHg Tricuspid Valve RA Pressure 3.00 mmHg TR Vmax 2.37 m/s TV S' 0.18 m/s TR Peak Grad 22.5 mmHg RVSP (TR) 25.6 mmHg
== END ==
PROVIDERS: PCP Family Medicine; Visit Provider Internal Medicine Cardiovascular Disease
DX: G47.33 Obstructive sleep apnea (adult) (pediatric) (principal); I71.20 Thoracic aortic aneurysm, without rupture, unspecified; I48.0 Paroxysmal atrial fibrillation
CPT/HCPCS: 93306

== ENCOUNTER → 2024-03-26 12:53 | Outpatient (BNVA) | payer MEDICARE, SELFPAY | PROVIDERS: PCP Family Medicine; Visit Provider Internal Medicine Cardiovascular Disease | DX: I71.21 Aneurysm of the ascending aorta, without rupture (principal); I48.0 Paroxysmal atrial fibrillation | CPT/HCPCS: 99213 ==

== ENCOUNTER → 2024-04-06 10:56 | Outpatient (BNVA) | payer MEDICARE, SELFPAY | PROVIDERS: PCP Family Medicine; Visit Provider Urology | DX: R31.0 Gross hematuria (principal); R31.29 Other microscopic hematuria | CPT/HCPCS: 99213 ==

== ENCOUNTER → 2024-05-18 12:04 | Outpatient (BNVA) | payer MEDICARE, SELFPAY | PROVIDERS: PCP Family Medicine; Referring Provider Family Medicine; Visit Provider Urology | DX: R31.0 Gross hematuria (principal) | CPT/HCPCS: 81003; 99213 ==

== ENCOUNTER 2024-05-19 19:55 | Emergency (ER) | payer MEDICARE, SELFPAY ==
[2024-05-19 19:58] VITALS: BP 163/93; PULSE 81; RESP 16; TEMP 36.8; O2SAT 96
[2024-05-19 20:08] VITALS: BP 163/93; PULSE 81; RESP 16; TEMP 36.8; O2SAT 96
[2024-05-19 20:44] LABS: Clarity Sl Cloudy (Clear)
--- NOTE | 2024-05-19 20:45 | DI.CT_ITS ---
Exam(s) CT ABDOMEN PELVIS WO EXAM: CT ABDOMEN PELVIS WO CLINICAL HISTORY: right flank pain, hematuria. TECHNIQUE: Imaging Protocol: Axial computed tomography images with coronal and sagittal reformatted images were created and reviewed. Oral: / no COMPARISON: CT CT ABDOMEN PELVIS WO/W from 08/07/2022 FINDINGS: Lung Bases: No acute findings. Liver: Normal density. Stable low-density lesions. Cyst no suspicious mass. Gallbladder and biliary tract: No radiodense calculus or biliary dilation. Pancreas: Normal density. No abnormal calcifications or inflammatory process. Spleen: Normal. Kidneys: Normal size, contour and axis. 10 millimeter stone right lower pole collecting system. Two adjacent stones measuring 12 millimeters located within the right renal pelvis, in the dependent por tion. Dilatation of the right renal pelvis but no visible obstructing stone. Findings are new since the previous exam. Previous study showed small stones. Left kidney is unremarkable. No suspicious masses seen. Adrenal glands: No masses seen. Lymph nodes: Within normal limits. Vasculature: Abdominal aorta non-dilated. Retroaortic left renal vein. Soft tissues: Midline suture material. Bladder: No wall thickening. No mass or calculi. Bowel: No obstruction or bowel wall thickening. Status post right hemicolectomy. Diverticulosis. No evidence of diverticulitis. Moderate quantity of stool. Stool mildly distending the rectum. Peritoneal cavity: No ascites. No focal collection. No mesenteric inflammatory response. Reproductive organs: Large bilateral hydroceles. Prostate upper normal size. Bones: Degenerative changes in the spine and hips. Pole IMPRESSION: Moderate right hydronephrosis without visible cause for obstruction. Two nonobstructing stones locat ed in the renal pelvis and additional nonobstructing lower pole renal calculus also noted. RADIATION DOSE DELIVERED: 661.45mGy.cm Total DLP DATA REPOSITORY: All CT scans at this facility are submitted to the National Radiology Data Registry (NRDR) Dose Index Registry (DIR) with the [employer] (ACR). RADIATION OPTIMIZATION: All CT scans at this facility use at least one of these dose optimization te chniques: automated exposure control; mA and/or kV adjustment per patient size (includes targeted exa ms where dose is matched to clinical indication); or iterative reconstruction.
[2024-05-19 20:46] LABS: Bilirubin Color Interference (Negative); Blood Color Interference (Negative); Glucose Color Interference mg/dL (Negative); Ketones Color Interference mg/dL (Negative); Leukocyte Esterase Color Interference (Negative); Nitrite Color Interference (Negative); RBC >50 HPF (0-2); Urobilinogen Color Interference mg/dL (Up to 0.2)
[2024-05-19 20:47] LABS: C & S Indicated? Yes
[2024-05-19 21:14] LABS: Abs Immature Grans 0.02 10^3/uL (0.0-0.06); Absolute Basophil Count 0.06 10^3/uL (0.0-0.2); Absolute Eosinophil Count 0.24 10^3/uL (0.0-0.7); Absolute Lymphocyte Count 2.57 10^3/uL (1.2-3.4); Absolute Monocyte Count 1.04 10^3/uL (0.1-0.8); Absolute Neutrophil Count 4.24 10^3/uL (1.2-6.7); Basophils % 0.7 %; Eosinophils % 2.9 %; HCT 41.3 % (40.0-50.0); HGB 14.2 g/dL (13.5-17.5); Immature Grans % 0.2 %; Lymphocytes % 31.5 %; MCH 31.8 pg (27.0-33.0); MCHC 34.4 % (32.0-36.0); MCV 93 fL (80-95); MPV 9.5 fL (8.0-11.0); Monocytes % 12.7 %; Platelet Count 158 10^3/uL (130-400); RBC 4.46 10^6/uL (4.36-5.78); RDW 12.3 % (11.8-14.1); RDW-SD 41.8 fL; WBC 8.17 10^3/uL (4.4-10.8)
[2024-05-19 21:25] LABS: ALT 34 U/L (16-63); AST 26 U/L (15-37); Albumin 3.6 g/dL (3.4-5.0); Alkaline Phosphatase 109 U/L (46-116); Anion Gap 10.4 mmol/L (3-11); BUN 27 mg/dL (7-18); Bilirubin, Total 0.67 mg/dL (0.2-1.0); CO2 26.6 mmol/L (21.0-32.0); CREATININE 1.4 mg/dL (0.70-1.30); Chloride 99 mmol/L (98-107); Estimated GFR 51.13 (mL/min/1.73m2); Glucose 126 mg/dL (74-106); Potassium 3.5 mmol/L (3.5-5.1); Sodium 136 mmol/L (136-145); Total Protein 8.5 g/dL (6.4-8.2)
--- NOTE | 2024-05-19 22:32 | DI.VRAD_ITS ---
PROCEDURE INFORMATION: Exam: CT Abdomen And Pelvis Without Contrast Exam date and time: 05/19/2024 9:08 PM Age: 78 years old Clinical indication: Abdominal pain; Flank; Right; Prior surgery; Surgery date: 6+ months; Surgery type: Bowel resection 40+ years ago TECHNIQUE: Imaging protocol: Computed tomography of the abdomen and pelvis without contrast. COMPARISON: CT ABDOMEN PELVIS WO/W 08/07/2022 8:44 AM FINDINGS: Liver: Small indeterminate hypoattenuating hepatic lesions, incompletely characterized but most likely small cysts and/or hemangiomas. Gallbladder and biliary ducts: Gallbladder largely collapsed. No calcified gallstones seen. No biliary dilatation. Pancreas: Grossly unremarkable unenhanced pancreas. Spleen: Grossly unremarkable unenhanced spleen. Adrenal glands: Normal appearing adrenal glands. Kidneys and ureters: Nonobstructing stones in the right renal collecting system and renal pelvis with the largest measuring 8 mm x 11 mm. Moderate right-sided hydronephrosis with abrupt caliber transition at the ureteropelvic junction and collapse of the downstream ureter suggesting obstructive physiology at the ureteropelvic junction, cause not demonstrated. No calcified obstructing stone at the ureteropelvic junction. Mild asymmetric perinephric edema. Stomach and bowel: No oral contrast. Stomach partially distended with fluid, ingested material, and gas. No small bowel dilatation to suggest obstruction. Prior segmental ileocolectomy with an ileocolic anastomosis in the right mid abdomen. Moderate fecal material in the colon. Diverticulosis through the distal descending and sigmoid colon but no evidence of diverticulitis or colitis. Rectum moderately distended with fecal material. Appendix: Presumed surgically absent in the setting of a prior ileocolectomy. Intraperitoneal space: No gross ascites or free air. Vasculature: Normal caliber abdominal aorta. Retroaortic left renal vein, anatomic variant. Lymph nodes: Scattered small mesenteric and retroperitoneal lymph nodes. Urinary bladder: Normal appearing urinary bladder. Reproductive: Normal-appearing prostate gland and seminal vesicles. Bones/joints: No acute fracture seen among the bones of the abdomen or pelvis. Spinal degenerative change with anterior osteophytes and facet arthrosis at several levels. Fusion across both sacroiliac joints. 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 Soft tissues: Diastasis recti. No significant ventral or inguinal hernia. IMPRESSION: 1. Moderate right-sided hydronephrosis but no ureterectasis suggesting obstructive physiology at the ureteropelvic junction. Non radiopaque causes of obstruction would include: neoplasm, anatomic cause, infection, prior surgery, sloughed papilla, fungus ball, cell cast, hematoma, debris, radiolucent medicine stone. Urology consultation recommended. 2. Large nonobstructing stones in the right renal pelvis and collecting system with the largest measuring 8 mm x 11 mm. 3. Prior segmental ileocolectomy. Moderate amount of retained fecal material in the colon and rectum. Dictated and Authenticated by: Adeel Ibanez MD. Ordering:ULISES High MD
[2024-05-19 23:27] VITALS: BP 157/84; PULSE 61; RESP 20; TEMP 36.8; O2SAT 94
--- NOTE | 2024-05-19 23:46 | ED.GENADUL_ITS ---
Discharge Plan Disposition Patient Disposition: Home Discharge Details Clinical Impression: Hematuria, Hydronephrosis Primary Care Provider: Ronak Saeed ED Provider: Anila Lui Home Meds and New Rx's Prescriptions: Continued (DME) pH test Strip See Rx Instructions .ROUTE .MEDSUPPLY Qty: 100 12RF Rx Instructions: As directed diltiazem HCl 30 mg tablet 30 mg PO TID PRN doxepin 10 mg capsule 10 mg PO DAILY fexofenadine [Robyn Allergy] 60 mg tablet 60 mg PO DAILY pravastatin [Pravachol] 20 mg tablet 20 mg PO QHS cyanocobalamin (vitamin B-12) 1,000 mcg capsule 1,000 mcg PO QMONTH cholestyramine (with sugar) [Questran] 4 gram powder 4 gm PO TID zolpidem [Ambien] 5 mg tablet 5 mg PO QHS PRN diltiazem HCl [Tiazac] 180 mg capsule,extended release 24 hr 180 mg PO DAILY Qty: 90 3RF hydrochlorothiazide 12.5 mg capsule 25 mg PO DAILY Patient Comments: pt .reports taking BID oxybutynin chloride 5 mg tablet extended release 24hr 15 mg PO TID Discharge Instructions Instructions: Hydronephrosis in adults, Blood in Urine (Hematuria), Adult ED Additional Instructions: Please follow-up with Dr. Johnson tomorrow, you will need a cystoscopy to figure out why you have fluid on your kidney and a blockage in your ureter Increase your fluids, recommendation to continue on your aspirin and call your auto wheel alignment specialist about when you are able to discontinue this At least eight 8 ounce glasses of water daily Please return should you develop weakness, dizziness, fever, chills, or any new or worsening complaints Referrals: Ronak Saeed MD [Primary Care Provider] - 1 day Phliip Johnson MD [ [facility] STAFF PHYSICIAN] - 1 day Discharge Data Discharge Date/Time-TO BE ENTERED AT DEPARTURE: 05/19/24 23:51 HPI General Date/Time Provider Initiated Documentation: 05/19/24 20:01 . HPI Narrative: This 78-year-old male presents with gross hematuria which has been intermittent for the past several days. He is status post Watchman procedure for atrial fibrillation has been taking Plavix and aspirin at home. The Plavix was discontinued yesterday. Patient states he had a hematuria in the past but was concerned as this has been coming and going more frequently. He has had some scant pain in the suprapubic and right flank region. He denies any fever or chills. He is able to urinate without difficulty per patient. He has discontinued the Plavix but is taking the aspirin, 81 mg at this time. Denies any weakness or dizziness. Does have a history of kidney stones, this was approximately 5 years ago per patient. Related Data Home Medications ?Medication ?Instructions ?Recorded ?Confirmed cholestyramine (with sugar) 4 gram 4 gm PO TID 06/29/19 05/19/24 oral powder (Questran) cyanocobalamin (vitamin B-12) 1,000 mcg PO QMONTH 06/29/19 05/19/24 1,000 mcg capsule pravastatin 20 mg tablet 20 mg PO QHS 06/29/19 05/19/24 (Pravachol) zolpidem 5 mg tablet (Ambien) 5 mg PO QHS PRN 06/29/19 05/19/24 pH test #100 ea 11/13/19 03/26/24 diltiazem HCl 180 mg capsule,24 180 mg PO DAILY #90 caps 11/29/20 05/19/24 hr,extended release (Tiazac) hydrochlorothiazide 12.5 mg capsule 25 mg PO DAILY 03/19/23 05/19/24 diltiazem HCl 30 mg tablet 30 mg PO TID PRN 12/02/23 05/19/24 doxepin 10 mg capsule 10 mg PO DAILY 01/14/24 05/19/24 fexofenadine 60 mg tablet (Robyn 60 mg PO DAILY 05/01/24 05/19/24 Allergy) oxybutynin chloride 5 mg 15 mg PO TID 05/19/24 05/19/24 tablet,extended release 24 hr Previous Rx's ?Medication ?Instructions ?Recorded pH test #100 ea 11/13/19 diltiazem HCl 180 mg capsule,24 180 mg PO DAILY #90 caps 11/29/20 hr,extended release (Tiazac) Allergies Allergy/AdvReac Type Severity Reaction Status Date / Time sorbitol Allergy Intermediate Diarrhea Verified 05/19/24 20:01 paper tape AdvReac Mild Topical Uncoded 05/19/24 20:01 Irritation General Stated Complaint: Urinary MAURA: 3 Exam Narrative Exam Narrative: 78-year-old male in no acute distress, alert and oriented, lungs clear to auscultation, cardiac rate rhythm regular, no abdominal or flank tenderness appreciated no pallor, no acute distress, no abdominal bruit or pulsatile mass Course Vital Signs Vital signs: Vital Signs Temperature 36.8 C 05/19/24 19:58 Pulse 81 05/19/24 19:58 Respiratory Rate 16 05/19/24 19:58 Blood Pressure 163/93 H 05/19/24 19:58 Pulse Oximetry 96 05/19/24 19:58 Temperature 36.8 C 05/19/24 23:27 Temperature Source Temporal Artery Scan 05/19/24 23:27 Pulse 61 05/19/24 23:27 Respiratory Rate 20 05/19/24 23:27 Respiratory Effort Normal, Non-Labored 05/19/24 20:08 Blood Pressure 157/84 H 05/19/24 23:27 Blood Pressure Position Sitting 05/19/24 20:08 Pulse Oximetry 94 05/19/24 23:27 Oxygen Delivery Method Room Air 05/19/24 23:27 Oxygen Flow Rate 0 05/19/24 23:27 Pain Level 2 05/19/24 20:08 Lab/Test Results Lab/Test Results: 05/19/24 20:14 Urine - Reflex from Ua Urine Culture - Pending Laboratory Tests Range/Units 05/19/24 05/19/24 20:14 21:01 WBC (4.4-10.8) 10^3/uL 8.17 RBC (4.36-5.78) 10^6/uL 4.46 Hgb (13.5-17.5) g/dL 14.2 Hct (40.0-50.0) % 41.3 MCV (80-95) fL 93 MCH (27.0-33.0) pg 31.8 MCHC (32.0-36.0) % 34.4 RDW (11.8-14.1) % 12.3 Plt Count (130-400) 10^3/uL 158 MPV (8.0-11.0) fL 9.5 Immature Gran % % 0.2 Neutrophils % % 52.0 Lymphocytes % % 31.5 Monocytes % % 12.7 Eosinophils % % 2.9 Basophils % % 0.7 Nucleated RBC % (0.0-0.3) % 0.0 Absolute Neutrophils (1.2-6.7) 10^3/uL 4.24 Absolute Lymphocytes (1.2-3.4) 10^3/uL 2.57 Absolute Monocytes (0.1-0.8) 10^3/uL 1.04 H Absolute Eosinophils (0.0-0.7) 10^3/uL 0.24 Absolute Basophils (0.0-0.2) 10^3/uL 0.06 Sodium (136-145) mmol/L 136 Potassium (3.5-5.1) mmol/L 3.5 Chloride (98-107) mmol/L 99 Carbon Dioxide (21.0-32.0) mmol/L 26.6 Anion Gap (3-11) mmol/L 10.4 BUN (7-18) mg/dL 27 H Creatinine (0.70-1.30) mg/dL 1.4 H Est GFR (CKD-EPI 2020) (mL/min/1.73m2) 51.13 Glucose (74-106) mg/dL 126 H Calcium (8.5-10.1) mg/dL 9.0 Total Bilirubin (0.2-1.0) mg/dL 0.67 AST (15-37) U/L 26 ALT (16-63) U/L 34 Alkaline Phosphatase (46-116) U/L 109 Total Protein (6.4-8.2) g/dL 8.5 H Albumin (3.4-5.0) g/dL 3.6 Urine Color (Yellow) Red Urine Clarity (Clear) Sl Cloudy Urine pH Not Applicable Ur Specific Hollister (1.005-1.025) 1.010 Urine Protein (Neg-Trace) mg/dL Color Interference Urine Ketones (Negative) mg/dL Color Interference Urine Blood (Negative) Color Interference Urine Nitrite (Negative) Color Interference Urine Bilirubin (Negative) Color Interference Urine Urobilinogen (Up to 0.2) mg/dL Color Interference Ur Leukocyte Esterase (Negative) Color Interference Urine RBC (0-2) HPF >50 H Urine WBC (0-5) HPF Ur Epithelial Cells Not Applicable Urine Crystals Not Applicable Urine Bacteria Not Applicable Urine Mucus Not Applicable Ur Culture Indicated? Yes Urine Glucose (Negative) mg/dL Color Interference ABO/Rh O Positive Antibody Screen NEGATIVE Medical Decision Making This 78-year-old male is presenting with report of blood in urine. Saw Dr. Johnson for this yesterday and came off Plavix. Secondary to more persistent bleeding he presents today. Secondary to age and comorbidities history, I did order CT abdomen and pelvis, right hydronephrosis, moderate noted which patient actually has had before. He does have evidence of a possible obstruction at the UPJ, no evidence of obvious stone there is a stone in the kidney which is 8 x 11 mm per the radiologist. Patient otherwise feels well and denies any systemic signs of illness. His CBC and CMP are reassuring and his urinalysis shows greater than 50 white blood cells without any obvious white blood cells. I spoke with the urologist, Dr. Davenport at [facility] and he does not feel antibiotics are necessarily warranted at this time and does recommend close outpatient follow-up with our urologist here. Patient feels comfortable with this plan, he asked if he could discontinue his aspirin but secondary to having the Watchman procedure I think that the risk may outweigh the benefit and I encouraged him to call his auto wheel alignment specialist tomorrow to discuss whether or not coming off the aspirin is appropriate at this time. As patient is hemodynamically stable I encouraged him to continue on the aspirin. Urine culture is pending and patient is placed on urgent referral list, concern the patient will need cystoscopy in the outpatient setting. Will need follow-up closely this week with With urology. Return precautions reviewed and patient expressed understanding Quality:SDOH Health Related Social Needs: No Data to Display PFSH All Active Problems (Updated 05/19/24 @ 23:20 by YORDY Howard) Hydronephrosis (Acute) Hematuria (Acute) Eczema of external ear (Acute) Cerumen impaction (Acute) Interstitial cystitis (Acute) Adverse food reaction (Acute) History of total left knee replacement (Acute 08/06/23) BPH (benign prostatic hyperplasia) (Chronic) Hypertension (Chronic) Vitamin B 12 deficiency (Acute) Crohn's disease (Chronic) Alcohol use (Acute) BRITTANY (obstructive sleep apnea) (Chronic) PAF (paroxysmal atrial fibrillation) (Acute) Ascending aortic aneurysm (Acute) Gross hematuria (Acute) Hydronephrosis, right (Acute) History of resection of terminal ileum (Acute) PAF (paroxysmal atrial fibrillation) (Acute) Sensorineural hearing loss of both ears (Acute) Therapeutic drug monitoring (Acute) flecainide Basal cell carcinoma (Acute) face Medical History Painful total knee replacement, left Renal insufficiency Vertigo Depression Hearing impairment Mitral regurgitation Leukopenia Trochanteric bursitis Erectile dysfunction Sleep apnea Insomnia Inguinal hernia Cataract Aortic root dilation Actinic keratitis Subcutaneous mass of left forearm History of colon polyps Anemia Renal calculus, right Chronic insomnia Blurred vision Nephrolithiasis Surgical History Left inguinal hernia Previous back surgery remove L4 H/O knee surgery bilat - open mensicus 1949s Hx of colonoscopy (~11/11/20) Status post laser lithotripsy of ureteral calculus Hx of cystoscopy History of colectomy Social History Smoking/Tobacco Use Status: Former Tobacco Use Quit Date: 08/19/1959 Tobacco: How many years used: 5 Smoking risk assessment performed?: Yes Alcohol Intake: current Alcohol Intake frequency: 3 or more drinks per day Alcohol type: wine Drug use: Never Substance use type: does not use Details: alcohol: t-1, 2-3 glasses Housing: house What type of physical activity do you participate in: swimming Duration: 15-30 minutes/day Frequency: 5-6 times per week Do you feel safe at home: Yes Do you feel safe in your relationship?: Yes Additional Social history: unable to assess privately
[2024-05-19 23:50] VITALS: BP 157/84; PULSE 61; RESP 20; TEMP 36.8; O2SAT 94
--- NOTE | 2024-05-23 07:51 | NUR.NOTE ---
Accessed Pt chart to see if Pt was given antibiotics. It appears that he was not prescribed. Document given to Dr Fisher
== END 2024-05-19 23:51 | disposition home or self-care (01) ==
PROVIDERS: Emergency Provider Physician Assistant; PCP Family Medicine
DX: R31.9 Hematuria, unspecified (principal); N13.30 Unspecified hydronephrosis; R10.31 Right lower quadrant pain
CPT/HCPCS: 36415; 80053; 86850; 86900; 86901; 87077; 99284; 74176; 81003; 81015; 85025; 87086; 87186; 99283

== ENCOUNTER → 2024-05-21 13:54 | Outpatient (BNVA) | payer MEDICARE, SELFPAY ==
--- NOTE | 2024-05-23 08:33 | W.EDPROG ---
Date of service: 05/23/24 Time of Service: 08:34 Medical Decision Making Patient's culture growing Enterococcus faecalis, I called and spoke with the patient is feeling well has no fevers or urinary symptoms currently other than continued hematuria, culture sensitivities show that the bacteria is susceptible to Cipro so this was sent into the pharmacy. He will follow-up with urology and return precautions given Quality:SDOH Health Related Social Needs: No Data to Display Discharge Plan Discharge Details Reason For Visit: Follow up Attending Provider: Philip Johnson Primary Care Provider: Ronak Saeed Home Meds and New Rx's Prescriptions: New ciprofloxacin HCl 500 mg tablet 500 mg PO BID Qty: 14 0RF No Action (DME) pH test Strip See Rx Instructions .ROUTE .MEDSUPPLY Qty: 100 12RF Rx Instructions: As directed diltiazem HCl 30 mg tablet 30 mg PO TID PRN doxepin 10 mg capsule 10 mg PO DAILY fexofenadine [Robyn Allergy] 60 mg tablet 60 mg PO DAILY pravastatin [Pravachol] 20 mg tablet 20 mg PO QHS cyanocobalamin (vitamin B-12) 1,000 mcg capsule 1,000 mcg PO QMONTH cholestyramine (with sugar) [Questran] 4 gram powder 4 gm PO TID zolpidem [Ambien] 5 mg tablet 5 mg PO QHS PRN diltiazem HCl [Tiazac] 180 mg capsule,extended release 24 hr 180 mg PO DAILY Qty: 90 3RF hydrochlorothiazide 12.5 mg capsule 25 mg PO DAILY Patient Comments: pt .reports taking BID oxybutynin chloride 5 mg tablet extended release 24hr 15 mg PO TID
== END ==
PROVIDERS: PCP Family Medicine; Referring Provider Family Medicine; Visit Provider Urology
DX: R31.9 Hematuria, unspecified (principal); N20.0 Calculus of kidney; N13.30 Unspecified hydronephrosis
CPT/HCPCS: 00123; 99213

== ENCOUNTER 2024-06-08 16:39 | Outpatient (REF) | payer MEDICARE, SELFPAY ==
[2024-06-08 18:50] LABS: Bilirubin Negative (Negative); Blood Large (Negative); Clarity Turbid (Clear); Glucose Negative (Negative); Ketones Negative (Negative); Leukocyte Esterase Small (Negative); Nitrite Negative (Negative); Specific Gravity >= 1.030 (1.005-1.025); Urobilinogen 0.2 mg/dL (Up to 0.2); pH 5.5 (5-8)
[2024-06-08 19:02] LABS: Bacteria Negative HPF (Negative); C & S Indicated? C&S Done As Ordered; Crystals Many Amorphous HPF (Negative); Epithelial Cells Rare HPF (Negative); Mucus Negative (Negative); RBC 20-50 HPF (0-2)
== END 2024-06-08 16:40 | disposition home or self-care (01) ==
LOC: LBN 16:39
PROVIDERS: PCP Family Medicine; Visit Provider Urology
DX: N39.0 Urinary tract infection, site not specified (principal)
CPT/HCPCS: 87077; 81003; 81015; 87086; 87186

== ENCOUNTER 2024-06-12 21:44 | Outpatient (CLI) | payer MEDICARE, SELFPAY ==
[2024-06-17 13:17] LABS: Baker's Yeast, IgE 0.15 kU/L (<0.70); Banana, IgE <0.10 kU/L (<0.70); Barley, IgE <0.10 kU/L (<0.70); Beef IgE <0.10 kU/L (<0.70); Black/White Pepper IgE <0.10 kU/L (<0.70); Broccoli IgE <0.10 kU/L (<0.70); Cacao/Cocoa, IgE <0.10 kU/L (<0.70); Cinnamon, IgE <0.10 kU/L (<0.70); Corn-Food IgE 0.11 kU/L (<0.70); Egg Whole IgE <0.10 kU/L (<0.70); Milk, IgE <0.10 kU/L (<0.70); Onion, IgE <0.10 kU/L (<0.70); Soybean IgE <0.10 kU/L (<0.70); Strawberry, IgE <0.10 kU/L (<0.70); White Potato, IgE <0.10 kU/L (<0.70)
== END 2024-06-12 21:45 | disposition home or self-care (01) ==
PROVIDERS: PCP Family Medicine; Referring Provider Physician Assistant; Visit Provider Physician Assistant
DX: N30.10 Interstitial cystitis (chronic) without hematuria; T78.1XXA Other adverse food reactions, not elsewhere classified, initial encounter; J30.5 Allergic rhinitis due to food
CPT/HCPCS: 36415; 86003

== ENCOUNTER 2024-07-03 15:15 | Outpatient (REF) | payer MEDICARE, SELFPAY ==
[2024-07-03 11:35] LABS: Bilirubin Negative (Negative); Blood Large (Negative); Clarity Clear (Clear); Glucose Negative (Negative); Ketones Negative (Negative); Leukocyte Esterase Negative (Negative); Nitrite Negative (Negative); Specific Gravity >= 1.030 (1.005-1.025); Urobilinogen 0.2 mg/dL (Up to 0.2); pH 5.5 (5-8)
[2024-07-03 11:50] LABS: Bacteria Rare HPF (Negative); C & S Indicated? C&S Done As Ordered; Crystals Few Calcium Oxalate HPF (Negative); Epithelial Cells Negative HPF (Negative); Mucus Negative (Negative); WBC Negative HPF (0-5)
== END 2024-07-03 15:16 | disposition home or self-care (01) ==
LOC: LBN 15:15
PROVIDERS: PCP Family Medicine; Visit Provider Urology
DX: N39.0 Urinary tract infection, site not specified (principal); R31.0 Gross hematuria; R82.89 Other abnormal findings on cytological and histological examination of urine
CPT/HCPCS: 81003; 81015; 87086

== ENCOUNTER 2024-07-23 08:56 | Outpatient (CLI) | payer MEDICARE, SELFPAY ==
--- NOTE | 2024-07-23 08:56 | RT.EKG_ITS ---
APPROVED REPORT Exam: Resting ECG Reason for Exam: Follow Up Watchman Monitor placement Patient Location: O HR:60 bpm ECG Measurements Heart Rate 60 AXIS SD [id number] P [id number] QRSd 94 QRS -14 QT 448 T 48 QTc 448 Conclusion Atrial fibrillation...
== END 2024-07-23 08:57 | disposition home or self-care (01) ==
LOC: DI.CARD 08:57
PROVIDERS: PCP Family Medicine; Visit Provider Internal Medicine Cardiovascular Disease
DX: I71.21 Aneurysm of the ascending aorta, without rupture; R42 Dizziness and giddiness
CPT/HCPCS: 93010

== ENCOUNTER → 2024-07-23 13:17 | Outpatient (BNVA) | payer MEDICARE, SELFPAY | PROVIDERS: PCP Family Medicine; Visit Provider Internal Medicine Cardiovascular Disease | DX: I48.20 Chronic atrial fibrillation, unspecified (principal); I25.10 Atherosclerotic heart disease of native coronary artery without angina pectoris | CPT/HCPCS: 93005; 99214 ==

== ENCOUNTER 2024-11-12 17:23 | Outpatient (REF) | payer MEDICARE, SELFPAY ==
[2024-11-12 21:52] LABS: Anion Gap 6.9 mmol/L (3-11); BUN 20 mg/dL (7-18); CO2 26.1 mmol/L (21.0-32.0); CREATININE 1.2 mg/dL (0.70-1.30); Calcium 8.9 mg/dL (8.5-10.1); Chloride 110 mmol/L (98-107); Estimated GFR 61.52 (mL/min/1.73m2); Glucose 111 mg/dL (74-106); Potassium 3.6 mmol/L (3.5-5.1); Sodium 143 mmol/L (136-145)
== END 2024-11-12 17:24 | disposition home or self-care (01) ==
LOC: NCHCN 17:23
PROVIDERS: PCP Family Medicine; Visit Provider Family Medicine
DX: I10 Essential (primary) hypertension (principal)
CPT/HCPCS: 80048

== ENCOUNTER 2024-11-30 12:44 | Outpatient (CLI) | payer MEDICARE, SELFPAY ==
[2024-11-30 12:38] LABS: Abs Immature Grans 0.02 10^3/uL (0.0-0.06); Absolute Basophil Count 0.05 10^3/uL (0.0-0.2); Absolute Eosinophil Count 0.24 10^3/uL (0.0-0.7); Absolute Lymphocyte Count 1.74 10^3/uL (1.2-3.4); Absolute Neutrophil Count 2.99 10^3/uL (1.2-6.7); Basophils % 0.9 %; Eosinophils % 4.3 %; HCT 42.3 % (40.0-50.0); HGB 14.2 g/dL (13.5-17.5); Immature Grans % 0.4 %; Lymphocytes % 30.9 %; MCH 31.6 pg (27.0-33.0); MCHC 33.6 % (32.0-36.0); MCV 94 fL (80-95); MPV 9.5 fL (8.0-11.0); Monocytes % 10.6 %; Neutrophils % 52.9 %; Platelet Count 155 10^3/uL (130-400); RBC 4.49 10^6/uL (4.36-5.78); RDW 12.9 % (11.8-14.1); RDW-SD 44.4 fL; WBC 5.64 10^3/uL (4.4-10.8)
[2024-11-30 12:49] LABS: Bilirubin Negative (Negative); Blood Large (Negative); Clarity Sl Cloudy (Clear); Glucose Negative (Negative); Ketones Negative (Negative); Leukocyte Esterase Negative (Negative); Nitrite Negative (Negative); Urobilinogen 0.2 mg/dL (Up to 0.2); pH 5.5 (5-8)
[2024-11-30 12:53] LABS: Anion Gap 8.7 mmol/L (3-11); BUN 16 mg/dL (7-18); CO2 28.3 mmol/L (21.0-32.0); CREATININE 1.3 mg/dL (0.70-1.30); Calcium 9.2 mg/dL (8.5-10.1); Chloride 105 mmol/L (98-107); Estimated GFR 55.53 (mL/min/1.73m2); Glucose 105 mg/dL (74-106); Potassium 3.7 mmol/L (3.5-5.1); Sodium 142 mmol/L (136-145)
[2024-11-30 13:01] LABS: Bacteria Negative HPF (Negative); C & S Indicated? C&S Done As Ordered; Casts 0-2 Hyaline LPF (Negative); Crystals Negative HPF (Negative); Epithelial Cells Rare HPF (Negative); Mucus Negative (Negative); RBC >50 HPF (0-2); WBC 0-2 HPF (0-5)
== END 2024-11-30 12:45 | disposition home or self-care (01) ==
LOC: LBO 12:45
PROVIDERS: PCP Family Medicine; Visit Provider Urology
DX: R31.0 Gross hematuria (principal)
CPT/HCPCS: 36415; 80048; 87077; 81003; 81015; 85025; 87086; 87186

== ENCOUNTER → 2024-12-01 09:49 | Outpatient (BNVA) | payer MEDICARE, SELFPAY | PROVIDERS: PCP Family Medicine; Referring Provider Family Medicine; Visit Provider Urology | DX: N40.0 Benign prostatic hyperplasia without lower urinary tract symptoms (principal); N20.0 Calculus of kidney; R31.9 Hematuria, unspecified | CPT/HCPCS: 99214 ==

== ENCOUNTER → 2025-02-04 11:30 | Outpatient (BNVA) | payer MEDICARE, SELFPAY | PROVIDERS: PCP Family Medicine; Referring Provider Family Medicine; Visit Provider Internal Medicine Cardiovascular Disease | DX: I25.10 Atherosclerotic heart disease of native coronary artery without angina pectoris (principal); I71.21 Aneurysm of the ascending aorta, without rupture; I48.20 Chronic atrial fibrillation, unspecified | CPT/HCPCS: 99214 ==

== ENCOUNTER 2025-05-11 21:09 | Outpatient (REF) | payer MEDICARE, SELFPAY ==
[2025-05-11 21:56] LABS: Abs Immature Grans 0.01 10^3/uL (0.0-0.06); HCT 40.7 % (40.0-50.0); HGB 13.8 g/dL (13.5-17.5); Immature Grans % 0.2 %; MCH 32.0 pg (27.0-33.0); MCHC 33.9 % (32.0-36.0); MCV 94 fL (80-95); MPV 10.5 fL (8.0-11.0); Platelet Count 146 10^3/uL (130-400); RBC 4.31 10^6/uL (4.36-5.78); RDW 12.8 % (11.8-14.1); RDW-SD 44.3 fL; WBC 5.18 10^3/uL (4.4-10.8)
[2025-05-11 22:00] LABS: Anion Gap 8.2 mmol/L (3-11); BUN 19 mg/dL (7-18); CO2 29.8 mmol/L (21.0-32.0); Calcium 8.8 mg/dL (8.5-10.1); Chloride 105 mmol/L (98-107); Estimated GFR 67.86 (mL/min/1.73m2); Glucose 120 mg/dL (74-106); Potassium 3.8 mmol/L (3.5-5.1); Sodium 143 mmol/L (136-145)
== END 2025-05-11 21:10 | disposition home or self-care (01) ==
LOC: NCHCN 21:09
PROVIDERS: PCP Family Medicine; Visit Provider Family Medicine
DX: I10 Essential (primary) hypertension (principal); D64.9 Anemia, unspecified
CPT/HCPCS: 80048; 85025

== ENCOUNTER → 2025-08-05 10:53 | Outpatient (BNVA) | payer MEDICARE, SELFPAY | PROVIDERS: PCP Family Medicine; Referring Provider Family Medicine; Visit Provider Internal Medicine Cardiovascular Disease | DX: I71.21 Aneurysm of the ascending aorta, without rupture (principal); I48.20 Chronic atrial fibrillation, unspecified; I10 Essential (primary) hypertension; Z95.818 Presence of other cardiac implants and grafts | CPT/HCPCS: 99214 ==